=== PATIENT | female | born 1930 | race Asian ===

== ENCOUNTER 2019-07-15 14:07 | Inpatient (IN) | payer MEDICARE, MEDICAID ==
[2019-07-15] VITALS (7 sets, daily range): BP systolic 98–125; BP diastolic 53–81
[~2019-07-15] VITALS: Ht 165.1 cm; Wt 61.2 kg
[~2019-07-15 14:07] MED LIST: ARICEPT10 MG ORAL; COZAAR50 MG ORAL; FER-IRON15 MG/1 ML PO; LIPITOR20 MG ORAL; LOPRESSOR5 MG/5 ML PO; METFORMIN HCL500 M1 ORAL; NAMENDA10 MG ORAL; NIFEDIPINE ER60 M2 ORAL; NITROFURANTOIN100 MG PO; ONGLYZA5 MG PO; XARELTO10 MG ORAL
--- NOTE | 2019-07-15 14:10 | NUR ---
ED Nurse Note: Patient was brought in by 29 due to ALOC from home. nlood glucose reads critically high, pt appears to be lethargic, responds to light pain.
--- NOTE | 2019-07-15 14:12 | Emergency Room Report ---
History of Present Illness General Chief Complaint: Abnormal Labs Source: Patient, Medical Record Present Illness HPI Disclaimer: Please note that this report is being documented using [employer] technology. This can lead to erroneous entry secondary to incorrect interpretation by the dictating instrument. HPI: 88-year-old female with a history of CVA, hypertension, hyperlipidemia, diabetes presenting for evaluation of altered mental status and elevated blood sugar levels. According to EMS, they were called to the patient's home by retail planner who states she is been increasingly confused and somnolent over the past 24 hours. On their initial assessment her blood sugar reading was greater than 500. Patient cannot provide any history. No trauma reported. No travel reported. Education Dean told EMS there was no recent fever, cough, vomiting, diarrhea, shortness of breath, travel, contact with sick individuals otherwise. PMH: Diabetes, stroke, hypertension, hyperlipidemia, atrial fibrillation PSH: Unable to obtain from patient Allergies: None listed in medical chart Social Hx: Able to obtain from patient Allergies: Coded Allergies: NO KNOWN ALLERGIES (Unverified Allergy, Unknown, 12/09/14) COVID-19 Screening Contact w/high risk pt: No Recent Travel to affected area: No Experienced COVID-19 symptoms?: No Nursing Documentation-PMH Hx Cardiac Problems: Yes Hx Hypertension: Yes Hx Asthma: Yes Hx Diabetes: Yes Hx Cancer: No Hx Gastrointestinal Problems: No Hx Neurological Problems: Yes Hx Cerebrovascular Accident: Yes Hx Seizures: Yes Review of Systems All Other Systems: limited - Unable to obtain from patient due to clinical condition Physical Exam Vital Signs Date Time Temp Pulse Resp B/P (MAP) Pulse Ox O2 Delivery O2 Flow Rate FiO2 07/15/19 14:01 97.0 110 20 100/60 (73) 98 Room Air General: Somnolent, moaning, afebrile HEENT: NC/AT. EOMI. dry mucous membranes Cardiovascular: Tachycardic Resp: Normal work of breathing. No cough Abdomen: Abdomen is soft, nondistended. Nontender Skin: Intact. No abrasions, laceration or rash over the exposed skin MSK: Normal tone and bulk. Contracture in left hand Neuro: Somnolent, moaning comprehensively. GCS 9 Procedures Critical Care Time Critical Care Time Total critical care time: Approximately 45 minutes Due to a high probability of clinically significant, life threatening deterioration, the patient required the highest level of preparedness to intervene emergently and I personally spent this critical care time directly and personally managing the patient. This critical care time included obtaining a history, examining the patient, pulse oximetry, ordering and reviewing studies , ordering treatments, evaluating response to treatment and updating management plan as needed, frequent reassessment and discussion with other providers as well as arranging for ultimate disposition. This critical to care time was performed to assess and manage the high probability of life-threatening deterioration that could result in multiorgan failure. This critical care time is separate from the separately billable procedures and treating other patients. Medical Decision Making Diagnostic Impression: Primary Impression: Uncontrolled type 2 diabetes mellitus with hyperosmolar nonketotic hyperglycemia Additional Impressions: Encephalopathy acute ARF (acute renal failure) Hyperkalemia UTI (urinary tract infection) ER Course 88-year-old female brought in for altered mental status and elevated blood sugar readings. Differential includes was not limited to DKA, HHS, electrolyte abnormality, dehydration, sepsis, to name a few. Start a broad metabolic infectious work-up. DKA labs sent. Will start IV fluids and give insulin bolus. Patient will require admission. Laboratory Tests Test 07/15/19 14:28 07/15/19 14:50 White Blood Count 10.4 K/UL (4.8-10.8) Red Blood Count 4.41 M/UL (4.20-5.40) Hemoglobin 14.4 G/DL (12.0-16.0) Hematocrit 44.4 % (37.0-47.0) Mean Corpuscular Volume 101 FL (80-99) H Mean Corpuscular Hemoglobin 32.5 PG (27.0-31.0) H Mean Corpuscular Hemoglobin Concent 32.3 G/DL (32.0-36.0) Red Cell Distribution Width 12.8 % (11.6-14.8) Platelet Count 173 K/UL (150-450) Mean Platelet Volume 8.5 FL (6.5-10.1) Neutrophils (%) (Auto) 83.1 % (45.0-75.0) H Lymphocytes (%) (Auto) 11.9 % (20.0-45.0) L Monocytes (%) (Auto) 4.1 % (1.0-10.0) Eosinophils (%) (Auto) 0.3 % (0.0-3.0) Basophils (%) (Auto) 0.6 % (0.0-2.0) Sodium Level 140 MMOL/L (136-145) Potassium Level 7.0 MMOL/L (3.5-5.1) *H Chloride Level 105 MMOL/L (98-107) Carbon Dioxide Level 23 MMOL/L (21-32) Anion Gap 12 mmol/L (5-15) Blood Urea Nitrogen 95 mg/dL (7-18) H Creatinine 3.5 MG/DL (0.55-1.30) H Estimated Glomerular Filtration Rate 12.4 mL/min (>60) Glucose Level > 1000 MG/DL (74-106) *H Calcium Level 10.5 MG/DL (8.5-10.1) H Magnesium Level 3.2 MG/DL (1.8-2.4) H Total Bilirubin 0.3 MG/DL (0.2-1.0) Aspartate Amino Transferase (AST) 10 U/L (15-37) L Alanine Aminotransferase (ALT) 13 U/L (12-78) Alkaline Phosphatase 76 U/L (46-116) Troponin I 0.020 ng/mL (0.000-0.056) Total Protein 8.5 G/DL (6.4-8.2) H Albumin 3.8 G/DL (3.4-5.0) Globulin 4.7 g/dL Albumin/Globulin Ratio 0.8 (1.0-2.7) L Serum Alcohol < 3 mg/dL Acetone Level Negative (NEGATIVE) Arterial Blood pH 7.297 (7.350-7.450) Arterial Blood Partial Pressure CO2 39.5 mmHg (35.0-45.0) Arterial Blood Partial Pressure O2 77.9 mmHg (75.0-100.0) Arterial Blood HCO3 18.9 mmol/L (22.0-26.0) L Arterial Blood Oxygen Saturation 93.9 % (95-100) L Arterial Blood Base Excess -7.1 (-2-2) L Jh Test Positive EKG Diagnostic Results EKG Time: 14:14 Rate: normal Other Impression Hyperacute T waves concerning for hyperkalemia and widened QRS. Consistent with electrolyte abnormalities. Cannot rule out underlying infarct Rhythm Strip Diag. Results Rhythm Strip Time: 14:14 Rate: 80s Reevaluation Time: 15:30 Last Vital Signs Date Time Temp Pulse Resp B/P (MAP) Pulse Ox O2 Delivery O2 Flow Rate FiO2 07/15/19 14:01 97.0 110 20 100/60 (73) 98 Room Air Reevaluation Impression Labs show a critically high potassium consistent with the patient's EKG. Giving calcium gluconate at this time. Starting insulin drip for HHS. Glucose greater than 1000, ketones negative. Patient appears to be in acute kidney failure as well. IV fluids running. Will admit to the ICU. Admitting team notified. Will arrange to place a dialysis catheter in anticipation for dialysis given elevated potassium and kidney failure. Patient be treated for UTI as well. Disposition: ADMITTED INPATIENT Condition: Critical Yoshi Carrero MD Jul 15, 2019 14:12
[2019-07-15] MEDS ORDERED: Insulin Human Regular 100units/ml 3ml IV ONE ×2 (14:15→17:00)
--- NOTE | 2019-07-15 14:20 | NUR ---
ED Nurse Note: Patient was brought in due to ALOC from home. Blood glucose read critically high. Patient lethargic, and responds to pain. BG machine reads criticaly high. IV inserted, urine and all labs were done. Insulin gtt started. Permacath for dialysis ordered. Addendum: 07/15/19 at 1600 by [email or web address] ED Nurse Note: Patient was brought in due to ALOC from home. Blood glucose read critically high. Patient lethargic, and responds to pain. BG machine reads criticaly high.
--- NOTE | 2019-07-15 14:30 | NUR ---
ED Nurse Note: All labs sent
[2019-07-15 14:45] LABS: BASOPHILS % (AUTO) 0.6 % (0.0-2.0); EOSINOPHILS % (AUTO) 0.3 % (0.0-3.0); HEMATOCRIT 44.4 % (37.0-47.0); HEMOGLOBIN 14.4 G/DL (12.0-16.0); LYMPHOCYTES % (AUTO) 11.9 % (20.0-45.0); MEAN CORPUSCULAR VOLUME 101 FL (80-99); MONOCYTES % (AUTO) 4.1 % (1.0-10.0); NEUTROPHILS % (AUTO) 83.1 % (45.0-75.0); PLATELET COUNT 173 K/UL (150-450); RED BLOOD COUNT 4.41 M/UL (4.20-5.40); RED CELL DISTRIBUTION WIDTH 12.8 % (11.6-14.8); WHITE BLOOD COUNT 10.4 K/UL (4.8-10.8)
[2019-07-15 15:05] LABS: ALANINE AMINOTRANSFERASE 13 U/L (12-78); ALBUMIN 3.8 G/DL (3.4-5.0); ALBUMIN/GLOBULIN RATIO 0.8 (1.0-2.7); ALKALINE PHOSPHATASE 76 U/L (46-116); ANION GAP 12 mmol/L (5-15); ASPARTATE AMINO TRANSFERASE 10 U/L (15-37); BILIRUBIN,TOTAL 0.3 MG/DL (0.2-1.0); BLOOD UREA NITROGEN 95 mg/dL (7-18); CALCIUM 10.5 MG/DL (8.5-10.1); CARBON DIOXIDE 23 MMOL/L (21-32); CHLORIDE 105 MMOL/L (98-107); CREATININE 3.5 MG/DL (0.55-1.30); SODIUM 140 MMOL/L (136-145)
[2019-07-15] MEDS ORDERED: Insulin Reg 100 units Premix 100 ML IV SCH (15:15)
--- NOTE | 2019-07-15 15:28 | NUR ---
ED Nurse Note: IV inserted, urine collected and sent. Insulin gtt started. Permacath for dialysis ordered.
[2019-07-15] MEDS ORDERED: Calcium Gluconate 1gm/10ml vial IVP ONE (15:30)
[2019-07-15 16:01] LABS: APPEARANCE,URINE CLEAR; BILIRUBIN, URINE NEGATIVE (NEGATIVE); COLOR,URINE PALE YELLOW; GLUCOSE, URINE (UA) 4+ (NEGATIVE); KETONES,URINE NEGATIVE (NEGATIVE); LEUKOCYTE ESTERASE ,URINE 1+ (NEGATIVE); NITRITE,URINE POSITIVE (NEGATIVE); PH,URINE 5 (4.5-8.0); PROTEIN,URINE NEGATIVE (NEGATIVE); UROBILINOGEN,URINE NORMAL MG/DL (0.0-1.0)
--- NOTE | 2019-07-15 16:05 | Consultation ---
History of Present Illness General Chief Complaint: Abnormal Labs Present Illness HPI 88 year old woman with history of afib on DOAC, CVA, dementia, hypertension, hyperlipidemia, diabetes presenting for evaluation of acute encephalopathy and elevated blood sugar levels. According to EMS, they were called to the patient' s home by loan processor who states she is been increasingly confused and somnolent over the past 24 hours. On their initial assessment her blood sugar reading was greater than 500. Patient cannot provide any history. No trauma reported. No travel reported. Tennis Ball Cover Cementer told EMS there was no recent fever, cough, vomiting, diarrhea, shortness of breath, travel, contact with sick individuals otherwise. Information obtained from medical record as patient is unable to provide any information due to encephalopathy. In ED she was found to have glucose >1000, TREVOR, acidemia, hyperkalemia if 7.0 with peaked Twaves, started on insulin drip and given calcium gluconate and referred for ICU admission. Allergies: Coded Allergies: NO KNOWN ALLERGIES (Unverified Allergy, Unknown, 12/09/14) Medication History Scheduled Apixaban (Eliquis), 2.5 MG PO BID, (Reported) Atorvastatin Calcium* (Lipitor*), 20 MG ORAL BEDTIME, (Reported) Cholecalciferol (Vitamin D3) (Vitamin D3), 5,000 UNIT MC DAILY, (Reported) Donepezil Hcl* (Aricept*), 10 MG ORAL DAILY, (Reported) Ferrous Sulfate ([place]-Iron), 325 MG PO BID, (Reported) Furosemide* (Lasix*), 20 MG ORAL DAILY, (Reported) Icosapent Ethyl (Vascepa), 1 GM PO BID, (Reported) Losartan Potassium* (Cozaar*), 50 MG ORAL DAILY Memantine HCl/Donepezil HCl (Namzaric 28 mg-10 mg Capsule), 1 EACH PO DAILY, ( Reported) Memantine Hcl* (Namenda*), 28 MG ORAL DAILY, (Reported) Metformin Hcl* (Metformin Hcl*), 500 MG ORAL TWICE A DAY, (Reported) Metoprolol Tartrate* (Lopressor*), 100 MG PO EVERY 8 HOURS, (Reported) Nifedipine* (Nifedipine Er*), 60 MG ORAL DAILY, (Reported) Nitrofurantoin Macrocrystal (Nitrofurantoin), 100 MG PO BID Raloxifene HCl (Raloxifene HCl), 60 MG PO DAILY, (Reported) Rivaroxaban (Xarelto*), 15 MG ORAL DAILY, (Reported) Miscellaneous Medications Saxagliptin Hcl (Onglyza), 5 MG PO, (Reported) Patient History Healthcare decision maker Resuscitation status Advanced Directive on File Physical Exam Last 24 Hour Vital Signs Date Time Temp Pulse Resp B/P (MAP) Pulse Ox O2 Delivery O2 Flow Rate FiO2 07/15/19 14:10 97.2 98 19 115/65 99 Room Air 07/15/19 14:01 97.0 110 20 100/60 (73) 98 Room Air Laboratory Tests Test 07/15/19 14:28 07/15/19 14:50 07/15/19 15:15 White Blood Count 10.4 K/UL (4.8-10.8) Red Blood Count 4.41 M/UL (4.20-5.40) Hemoglobin 14.4 G/DL (12.0-16.0) Hematocrit 44.4 % (37.0-47.0) Mean Corpuscular Volume 101 FL (80-99) H Mean Corpuscular Hemoglobin 32.5 PG (27.0-31.0) H Mean Corpuscular Hemoglobin Concent 32.3 G/DL (32.0-36.0) Red Cell Distribution Width 12.8 % (11.6-14.8) Platelet Count 173 K/UL (150-450) Mean Platelet Volume 8.5 FL (6.5-10.1) Neutrophils (%) (Auto) 83.1 % (45.0-75.0) H Lymphocytes (%) (Auto) 11.9 % (20.0-45.0) L Monocytes (%) (Auto) 4.1 % (1.0-10.0) Eosinophils (%) (Auto) 0.3 % (0.0-3.0) Basophils (%) (Auto) 0.6 % (0.0-2.0) Sodium Level 140 MMOL/L (136-145) Potassium Level 7.0 MMOL/L (3.5-5.1) *H Chloride Level 105 MMOL/L (98-107) Carbon Dioxide Level 23 MMOL/L (21-32) Anion Gap 12 mmol/L (5-15) Blood Urea Nitrogen 95 mg/dL (7-18) H Creatinine 3.5 MG/DL (0.55-1.30) H Estimat Glomerular Filtration Rate 12.4 mL/min (>60) Glucose Level > 1000 MG/DL (74-106) *H Calcium Level 10.5 MG/DL (8.5-10.1) H Magnesium Level 3.2 MG/DL (1.8-2.4) H Total Bilirubin 0.3 MG/DL (0.2-1.0) Aspartate Amino Transf (AST/SGOT) 10 U/L (15-37) L Alanine Aminotransferase (ALT/SGPT) 13 U/L (12-78) Alkaline Phosphatase 76 U/L (46-116) Troponin I 0.020 ng/mL (0.000-0.056) Total Protein 8.5 G/DL (6.4-8.2) H Albumin 3.8 G/DL (3.4-5.0) Globulin 4.7 g/dL Albumin/Globulin Ratio 0.8 (1.0-2.7) L Serum Alcohol < 3 mg/dL Acetone Level Negative (NEGATIVE) Arterial Blood pH 7.297 (7.350-7.450) Arterial Blood Partial Pressure CO2 39.5 mmHg (35.0-45.0) Arterial Blood Partial Pressure O2 77.9 mmHg (75.0-100.0) Arterial Blood HCO3 18.9 mmol/L (22.0-26.0) L Arterial Blood Oxygen Saturation 93.9 % (95-100) L Arterial Blood Base Excess -7.1 (-2-2) L Jh Test Positive Urine Color Pending Urine Appearance Pending Urine pH Pending Urine Specific [place] Pending Urine Protein Pending Urine Glucose (UA) Pending Urine Ketones Pending Urine Blood Pending Urine Nitrite Pending Urine Bilirubin Pending Urine Urobilinogen Pending Urine Leukocyte Esterase Pending Urine HCG, Qualitative Pending Urine Opiates Screen Pending Urine Barbiturates Screen Pending Phencyclidine (PCP) Screen Pending Urine Amphetamines Screen Pending Urine Benzodiazepines Screen Pending Urine Cocaine Screen Pending Urine Marijuana (THC) Screen Pending Height (Feet): 5 Height (Inches): 5.00 Weight (Pounds): 120 Medications Current Medications Medications (Trade) Dose Ordered Sig/Jaylen Route PRN Reason Start Time Stop Time Status Last Admin Dose Admin Insulin Human (Reg)/Sodium Chloride 100 ml @ 6 mls/hr Q24H IV 07/15/19 15:15 07/16/19 07:54 07/15/19 15:28 Sodium Chloride 1,000 ml @ 999 mls/hr Q1H1M ONCE IV 07/15/19 15:45 07/15/19 16:45 07/15/19 15:57 Objective Narrative General Appearance: lethargic, confused Neck: supple, normal inspection Respiratory/Chest: lungs clear, normal breath sounds, no respiratory distress, no accessory muscle use Cardiovascular/Chest: normal rate, regular rhythm Abdomen: non tender, soft Extremities: non-tender, normal inspection, no calf tenderness Assessment/Plan Diagnosis Elrod I: #Acute renal failure - susept ATN- likely with baseline CKD? #Hyperkalemia- severe #severe Hyperglycemia #AMS #afib on DOAC #CVA, #dementia #hypertension # hyperlipidemia #diabetes - ICU admission - stat HD tonight- zero UF - Aggressive hydration- NS 1L now - continue with continous hydration after - monitor BMP, mag, phos, calcium q8hr - insulin drip - monitor BG - monitor blood gas Vikki Jackson M.D. Jul 15, 2019 16:05
--- NOTE | 2019-07-15 16:22 | NUR ---
ED Nurse Note: Pt in bed resting, no acute distress is noted. VSS as documented.
[2019-07-15] MEDS ORDERED: Insulin Reg 100 units Premix 100 ML IVPB SCH (16:45)
[2019-07-15] MEDS ORDERED: Insulin Human Regular 100units/ml 3ml IV PRN ×2 (16:45)
[2019-07-15] MEDS ORDERED: Insulin Rate Change 1 Each MISC PRN (16:45)
[2019-07-15] MEDS ORDERED: Albuterol/Ipratropium 3ml neb HHN PRN (16:45)
--- NOTE | 2019-07-15 17:02 | History and Physical ---
History of Present Illness General Date patient seen: Jul 15, 2019 Time patient seen: 16:45 Reason for Hospitalization: Abnormal Labs Present Illness HPI 88 year old woman with history of afib on DOAC, CVA, dementia, hypertension, hyperlipidemia, diabetes presenting for evaluation of acute encephalopathy and elevated blood sugar levels. According to EMS, they were called to the patient' s home by automobile engine assembler who states she is been increasingly confused and somnolent over the past 24 hours. On their initial assessment her blood sugar reading was greater than 500. Patient cannot provide any history. No trauma reported. No travel reported. Telephone Advice Nurse told EMS there was no recent fever, cough, vomiting, diarrhea, shortness of breath, travel, contact with sick individuals otherwise. Information obtained from medical record as patient is unable to provide any information due to encephalopathy. In ED she was found to have glucose >1000, TREVOR, acidemia, hyperkalemia if 7.0 with peaked Twaves, started on insulin drip and given calcium gluconate and referred for ICU admission. Family Hx: Unable to obtain due to encephalopathy Social Hx: Unable to obtain due to encephalopathy Allergies: Coded Allergies: NO KNOWN ALLERGIES (Unverified Allergy, Unknown, 12/09/14) COVID-19 Screening Contact w/high risk pt: No Recent Travel to affected area: No Experienced COVID-19 symptoms?: No Medication History Scheduled Atorvastatin Calcium* (Lipitor*), 20 MG ORAL BEDTIME, (Reported) Donepezil Hcl* (Aricept*), 10 MG ORAL DAILY, (Reported) Ferrous Sulfate ([place]-Iron), 325 MG PO BID, (Reported) Losartan Potassium* (Cozaar*), 50 MG ORAL DAILY Memantine Hcl* (Namenda*), 28 MG ORAL DAILY, (Reported) Metformin Hcl* (Metformin Hcl*), 500 MG ORAL TWICE A DAY, (Reported) Metoprolol Tartrate* (Lopressor*), 100 MG PO EVERY 8 HOURS, (Reported) Nifedipine* (Nifedipine Er*), 60 MG ORAL DAILY, (Reported) Nitrofurantoin Macrocrystal (Nitrofurantoin), 100 MG PO BID Rivaroxaban (Xarelto*), 15 MG ORAL DAILY, (Reported) Miscellaneous Medications Saxagliptin Hcl (Onglyza), 5 MG PO, (Reported) Patient History Healthcare decision maker Resuscitation status Advanced Directive on File Review of Systems ROS Narrative Unable to obtain due to encephalopathy Physical Exam General Appearance: lethargic, confused Neck: supple, normal inspection Respiratory/Chest: lungs clear, normal breath sounds, no respiratory distress, no accessory muscle use Cardiovascular/Chest: normal rate, regular rhythm Abdomen: non tender, soft Extremities: non-tender, normal inspection, no calf tenderness Last 24 Hour Vital Signs Date Time Temp Pulse Resp B/P (MAP) Pulse Ox O2 Delivery O2 Flow Rate FiO2 07/15/19 16:21 97.6 86 16 102/70 98 Room Air 07/15/19 14:10 97.2 98 19 115/65 99 Room Air 07/15/19 14:01 97.0 110 20 100/60 (73) 98 Room Air Laboratory Tests Test 07/15/19 14:28 07/15/19 14:50 07/15/19 15:15 White Blood Count 10.4 K/UL (4.8-10.8) Red Blood Count 4.41 M/UL (4.20-5.40) Hemoglobin 14.4 G/DL (12.0-16.0) Hematocrit 44.4 % (37.0-47.0) Mean Corpuscular Volume 101 FL (80-99) H Mean Corpuscular Hemoglobin 32.5 PG (27.0-31.0) H Mean Corpuscular Hemoglobin Concent 32.3 G/DL (32.0-36.0) Red Cell Distribution Width 12.8 % (11.6-14.8) Platelet Count 173 K/UL (150-450) Mean Platelet Volume 8.5 FL (6.5-10.1) Neutrophils (%) (Auto) 83.1 % (45.0-75.0) H Lymphocytes (%) (Auto) 11.9 % (20.0-45.0) L Monocytes (%) (Auto) 4.1 % (1.0-10.0) Eosinophils (%) (Auto) 0.3 % (0.0-3.0) Basophils (%) (Auto) 0.6 % (0.0-2.0) Sodium Level 140 MMOL/L (136-145) Potassium Level 7.0 MMOL/L (3.5-5.1) *H Chloride Level 105 MMOL/L (98-107) Carbon Dioxide Level 23 MMOL/L (21-32) Anion Gap 12 mmol/L (5-15) Blood Urea Nitrogen 95 mg/dL (7-18) H Creatinine 3.5 MG/DL (0.55-1.30) H Estimat Glomerular Filtration Rate 12.4 mL/min (>60) Glucose Level > 1000 MG/DL (74-106) *H Calcium Level 10.5 MG/DL (8.5-10.1) H Magnesium Level 3.2 MG/DL (1.8-2.4) H Total Bilirubin 0.3 MG/DL (0.2-1.0) Aspartate Amino Transf (AST/SGOT) 10 U/L (15-37) L Alanine Aminotransferase (ALT/SGPT) 13 U/L (12-78) Alkaline Phosphatase 76 U/L (46-116) Troponin I 0.020 ng/mL (0.000-0.056) Total Protein 8.5 G/DL (6.4-8.2) H Albumin 3.8 G/DL (3.4-5.0) Globulin 4.7 g/dL Albumin/Globulin Ratio 0.8 (1.0-2.7) L Serum Alcohol < 3 mg/dL Acetone Level Negative (NEGATIVE) Arterial Blood pH 7.297 (7.350-7.450) Arterial Blood Partial Pressure CO2 39.5 mmHg (35.0-45.0) Arterial Blood Partial Pressure O2 77.9 mmHg (75.0-100.0) Arterial Blood HCO3 18.9 mmol/L (22.0-26.0) L Arterial Blood Oxygen Saturation 93.9 % (95-100) L Arterial Blood Base Excess -7.1 (-2-2) L Jh Test Positive Urine Color Pale yellow Urine Appearance Clear Urine pH 5 (4.5-8.0) Urine Specific [place] 1.010 (1.005-1.035) Urine Protein Negative (NEGATIVE) Urine Glucose (UA) 4+ (NEGATIVE) H Urine Ketones Negative (NEGATIVE) Urine Blood 1+ (NEGATIVE) H Urine Nitrite Positive (NEGATIVE) H Urine Bilirubin Negative (NEGATIVE) Urine Urobilinogen Normal MG/DL (0.0-1.0) Urine Leukocyte Esterase 1+ (NEGATIVE) H Urine RBC 0-2 /HPF (0 - 2) Urine WBC 2-4 /HPF (0 - 2) Urine Squamous Epithelial Cells Occasional /LPF Urine Bacteria Many /HPF (NONE) H Urine HCG, Qualitative Negative (NEGATIVE) Urine Opiates Screen Negative (NEGATIVE) Urine Barbiturates Screen Negative (NEGATIVE) Phencyclidine (PCP) Screen Negative (NEGATIVE) Urine Amphetamines Screen Negative (NEGATIVE) Urine Benzodiazepines Screen Negative (NEGATIVE) Urine Cocaine Screen Negative (NEGATIVE) Urine Marijuana (THC) Screen Negative (NEGATIVE) Height (Feet): 5 Height (Inches): 5.00 Weight (Pounds): 120 Medications Current Medications Medications (Trade) Dose Ordered Sig/Jaylen Route PRN Reason Start Time Stop Time Status Last Admin Dose Admin Acetaminophen (Tylenol) 650 mg Q4H PRN ORAL Mild Pain (Pain Scale 1-3) 07/15/19 16:45 08/14/19 16:44 UNV Albuterol/ Ipratropium (Albuterol/ Ipratropium) 3 ml Q4HR PRN HHN Shortness of Breath 07/15/19 16:45 07/20/19 16:44 UNV Dextrose (Dextrose 50%) 25 ml Q30M PRN IV Hypoglycemia 07/15/19 16:45 10/13/19 16:44 UNV Dextrose (Dextrose 50%) 50 ml Q30M PRN IV Hypoglycemia 07/15/19 16:45 10/13/19 16:44 UNV Docusate Sodium (Colace) 100 mg EVERY 12 HOURS ORAL 07/15/19 21:00 08/14/19 20:59 UNV Heparin Sodium (Porcine) (Heparin 5000 units/ml) 5,000 units EVERY 8 HOURS SUBQ 07/15/19 22:00 08/29/19 21:59 UNV Insulin Human (Reg)/Sodium Chloride 100 ml @ 0 mls/hr Q24H IV 07/15/19 16:45 10/13/19 16:44 UNV Insulin Human (Reg)/Sodium Chloride 100 ml @ 6 mls/hr Q24H IV 07/15/19 15:15 07/16/19 07:54 07/15/19 15:28 Insulin Human Regular (NovoLIN R) 5 units PRN PRN IV BS 200-299 07/15/19 16:45 10/13/19 16:44 UNV Insulin Human Regular (NovoLIN R) 10 units PRN PRN IV BS=>300 07/15/19 16:45 10/13/19 16:44 UNV Miscellaneous Medication (Insulin Rate Change) 1 ea PRN PRN MISC for line flush 07/15/19 16:45 10/13/19 16:44 UNV Ondansetron HCl (Zofran) 4 mg Q6H PRN IVP Nausea & Vomiting 07/15/19 16:45 08/14/19 16:44 UNV Ondansetron HCl (Zofran) 4 mg Q6H PRN IVP Nausea & Vomiting 07/15/19 16:45 08/14/19 16:44 UNV Sodium Chloride 1,000 ml @ 999 mls/hr Q1H1M ONCE IV 07/15/19 15:45 07/15/19 16:45 07/15/19 15:57 Assessment/Plan Assessment/Plan: 88 year old woman with history of afib on DOAC, CVA, dementia, hypertension, hyperlipidemia, diabetes who presented to ED with: #Uncontrolled NIDDM, HONK #TREVOR #Severe hyperkalemia with EKG changes -admit to ICU, plan for emergent HD -Insulin drip protocol, monitor glucose levels, repeat BMP tonight, monitor K levels closely -Surgery consulted for HD catheter placement -Nephrology for initiation of HD -Endocrine consulted -hold metformin -hold losartan #Acute metabolic encephalopathy #Dementia #history of CVA -hold Aricept and Namenda -Treat underlying acute medical problems -Supportive care -Aspiration and fall precautions #Atrial fibrillation #HTN -hold metop, nifedipine for now -hold anticoagulation for now I spent 75 minutes on this patient's case, and 35 mins was dedicated to critical care Critical Care Services performed include: Telemetry Review Hemodynamic measurement interpretation Laboratory data review and interpretation Radiology image review and interpretation Interpretation of ABG's Discussion of patient's care with ED team, Nursing staff and/or consulting services Harley Peck MD Jul 15, 2019 17:02
--- NOTE | 2019-07-15 17:08 | NUR ---
ED Nurse Note: Permacath was inserted for dialysis by MD Zion on right groin. CDI.
--- NOTE | 2019-07-15 17:34 | NUR ---
ED Nurse Note: Accucheck q30min. BG machine still shows critically high. MDs aware and insulin gtt and NS are on going. Patient is more alert and easy to awake. Permacath site is intact and CDI. Continue to monitor.
--- NOTE | 2019-07-15 17:48 | Consultation ---
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 She was brought to [facility] for evaluation at which time was identified to have potassium of 7 peak T waves renal insufficiency severe dehydration and critically ill. Patient being admitted to intensive care unit for further care and management. Given her hyperkalemia and EKG changes emergency dialysis indicated recommended. Surgery was called by primary care physician and electromechanical assembler for evaluation and temporary hemodialysis access given patient's current condition and no history of dialysis with no prior access patient was seen emergently in the emergency department. I called the patient's daughter emergently and discussed condition patient's daughter states full code and wants all care provider for her mother. Consent was obtained. Patient is alert and awake somewhat responsive. No full conversation able to be had no history obtained from patient Allergies: Coded Allergies: NO KNOWN ALLERGIES (Unverified Allergy, Unknown, 12/09/14) COVID-19 Screening Contact w/high risk pt: No Recent Travel to affected area: No Experienced COVID-19 symptoms?: No Medication History Scheduled Atorvastatin Calcium* (Lipitor*), 20 MG ORAL BEDTIME, (Reported) Donepezil Hcl* (Aricept*), 10 MG ORAL DAILY, (Reported) Ferrous Sulfate (Holland-Iron), 325 MG PO BID, (Reported) Losartan Potassium* (Cozaar*), 50 MG ORAL DAILY Memantine Hcl* (Namenda*), 28 MG ORAL DAILY, (Reported) Metformin Hcl* (Metformin Hcl*), 500 MG ORAL TWICE A DAY, (Reported) Metoprolol Tartrate* (Lopressor*), 100 MG PO EVERY 8 HOURS, (Reported) Nifedipine* (Nifedipine Er*), 60 MG ORAL DAILY, (Reported) Nitrofurantoin Macrocrystal (Nitrofurantoin), 100 MG PO BID Rivaroxaban (Xarelto*), 15 MG ORAL DAILY, (Reported) Miscellaneous Medications Saxagliptin Hcl (Onglyza), 5 MG PO, (Reported) Patient History Limited by: medical condition History Provided By: Patient, Family Member, Medical Record, PMD Healthcare decision maker Resuscitation status Advanced Directive on File Past Medical/Surgical History Past Medical/Surgical History: (1) Altered level of consciousness (2) Acute delirium (3) UTI (urinary tract infection) (4) Sepsis (5) Elevated troponin (6) Elevated LFTs (7) Hyperkalemia (8) ARF (acute renal failure) (9) Encephalopathy acute (10) Uncontrolled type 2 diabetes mellitus with hyperosmolar nonketotic hyperglycemia Review of Systems Review of Symptoms General ROS: no weight loss or fever Psychological ROS: no depression or mood changes, no memory loss Ophthalmic ROS: no visual changes or eye irritation ENT ROS: no nasal congestion, hearing loss, dizziness Allergy and Immunology ROS: no allergic symptoms or urticaria Hematological and Lymphatic ROS: no swollen glands, unusual bleeding or bruising Endocrine ROS: no polyuria, polydipsia, weight changes, temperature intolerance Respiratory ROS: no cough, shortness of breath, or wheezing Cardiovascular ROS: no chest pain or dyspnea on exertion Gastrointestinal ROS: denies abdominal pain, bright red blood in stool. Musculoskeletal ROS: no myalgias or arthralgias Neurological ROS: no TIA or stroke symptoms Dermatological ROS: no new or changing skin lesions, rashes or pruritis Limited given patient's mental status at this time Physical Exam Physical Exam General appearance: alert, cooperative, no distress, appears stated age Head: Normocephalic, without obvious abnormality, atraumatic Eyes: conjunctivae/corneas clear. PERRL, EOM's intact. Fundi benign Throat: Lips, mucosa, and tongue normal. Teeth and gums normal Neck: supple, symmetrical, trachea midline, no adenopathy, thyroid: not enlarged, symmetric, no tenderness/mass/nodules, no carotid bruit and no JVD Lungs: clear to auscultation bilaterally Heart: regular rate and rhythm, S1, S2 normal, no murmur, click, rub or gallop Abdomen: soft, non-tender. Bowel sounds normal. No masses, no organomegaly Extremities: extremities normal, atraumatic, no cyanosis or edema Pulses: 2+ and symmetric Skin: Skin color, texture, turgor normal. No rashes or lesions Neurologic: Grossly normal Last 24 Hour Vital Signs Date Time Temp Pulse Resp B/P (MAP) Pulse Ox O2 Delivery O2 Flow Rate FiO2 07/15/19 16:21 97.6 86 16 102/70 98 Room Air 07/15/19 14:10 97.2 98 19 115/65 99 Room Air 07/15/19 14:01 97.0 110 20 100/60 (73) 98 Room Air Laboratory Tests Test 07/15/19 14:28 07/15/19 14:50 07/15/19 15:15 White Blood Count 10.4 K/UL (4.8-10.8) Red Blood Count 4.41 M/UL (4.20-5.40) Hemoglobin 14.4 G/DL (12.0-16.0) Hematocrit 44.4 % (37.0-47.0) Mean Corpuscular Volume 101 FL (80-99) H Mean Corpuscular Hemoglobin 32.5 PG (27.0-31.0) H Mean Corpuscular Hemoglobin Concent 32.3 G/DL (32.0-36.0) Red Cell Distribution Width 12.8 % (11.6-14.8) Platelet Count 173 K/UL (150-450) Mean Platelet Volume 8.5 FL (6.5-10.1) Neutrophils (%) (Auto) 83.1 % (45.0-75.0) H Lymphocytes (%) (Auto) 11.9 % (20.0-45.0) L Monocytes (%) (Auto) 4.1 % (1.0-10.0) Eosinophils (%) (Auto) 0.3 % (0.0-3.0) Basophils (%) (Auto) 0.6 % (0.0-2.0) Sodium Level 140 MMOL/L (136-145) Potassium Level 7.0 MMOL/L (3.5-5.1) *H Chloride Level 105 MMOL/L (98-107) Carbon Dioxide Level 23 MMOL/L (21-32) Anion Gap 12 mmol/L (5-15) Blood Urea Nitrogen 95 mg/dL (7-18) H Creatinine 3.5 MG/DL (0.55-1.30) H Estimat Glomerular Filtration Rate 12.4 mL/min (>60) Glucose Level > 1000 MG/DL (74-106) *H Calcium Level 10.5 MG/DL (8.5-10.1) H Phosphorus Level 5.9 MG/DL (2.5-4.9) H Magnesium Level 3.2 MG/DL (1.8-2.4) H Total Bilirubin 0.3 MG/DL (0.2-1.0) Aspartate Amino Transf (AST/SGOT) 10 U/L (15-37) L Alanine Aminotransferase (ALT/SGPT) 13 U/L (12-78) Alkaline Phosphatase 76 U/L (46-116) Troponin I 0.020 ng/mL (0.000-0.056) Total Protein 8.5 G/DL (6.4-8.2) H Albumin 3.8 G/DL (3.4-5.0) Globulin 4.7 g/dL Albumin/Globulin Ratio 0.8 (1.0-2.7) L Serum Alcohol < 3 mg/dL Acetone Level Negative (NEGATIVE) Arterial Blood pH 7.297 (7.350-7.450) Arterial Blood Partial Pressure CO2 39.5 mmHg (35.0-45.0) Arterial Blood Partial Pressure O2 77.9 mmHg (75.0-100.0) Arterial Blood HCO3 18.9 mmol/L (22.0-26.0) L Arterial Blood Oxygen Saturation 93.9 % (95-100) L Arterial Blood Base Excess -7.1 (-2-2) L Jh Test Positive Urine Color Pale yellow Urine Appearance Clear Urine pH 5 (4.5-8.0) Urine Specific [place] 1.010 (1.005-1.035) Urine Protein Negative (NEGATIVE) Urine Glucose (UA) 4+ (NEGATIVE) H Urine Ketones Negative (NEGATIVE) Urine Blood 1+ (NEGATIVE) H Urine Nitrite Positive (NEGATIVE) H Urine Bilirubin Negative (NEGATIVE) Urine Urobilinogen Normal MG/DL (0.0-1.0) Urine Leukocyte Esterase 1+ (NEGATIVE) H Urine RBC 0-2 /HPF (0 - 2) Urine WBC 2-4 /HPF (0 - 2) Urine Squamous Epithelial Cells Occasional /LPF Urine Bacteria Many /HPF (NONE) H Urine HCG, Qualitative Negative (NEGATIVE) Urine Opiates Screen Negative (NEGATIVE) Urine Barbiturates Screen Negative (NEGATIVE) Phencyclidine (PCP) Screen Negative (NEGATIVE) Urine Amphetamines Screen Negative (NEGATIVE) Urine Benzodiazepines Screen Negative (NEGATIVE) Urine Cocaine Screen Negative (NEGATIVE) Urine Marijuana (THC) Screen Negative (NEGATIVE) Height (Feet): 5 Height (Inches): 5.00 Weight (Pounds): 120 Medications Current Medications Medications (Trade) Dose Ordered Sig/Jaylen Route PRN Reason Start Time Stop Time Status Last Admin Dose Admin Acetaminophen (Tylenol) 650 mg Q4H PRN ORAL Mild Pain (Pain Scale 1-3) 07/15/19 16:45 08/14/19 16:44 Albuterol/ Ipratropium (Albuterol/ Ipratropium) 3 ml Q4H PRN HHN Shortness of Breath 07/15/19 16:45 07/20/19 16:44 Dextrose (Dextrose 50%) 25 ml Q30M PRN IV Hypoglycemia 07/15/19 16:45 10/13/19 16:44 Dextrose (Dextrose 50%) 50 ml Q30M PRN IV Hypoglycemia 07/15/19 16:45 10/13/19 16:44 Docusate Sodium (Colace) 100 mg EVERY 12 HOURS ORAL 07/15/19 21:00 08/14/19 20:59 UNV Heparin Sodium (Porcine) (Heparin 5000 units/ml) 5,000 units EVERY 8 HOURS SUBQ 07/15/19 22:00 08/29/19 21:59 UNV Insulin Human (Reg)/Sodium Chloride 100 ml @ 0 mls/hr Q24H IV 07/15/19 16:45 10/13/19 16:44 UNV Insulin Human (Reg)/Sodium Chloride 100 ml @ 6 mls/hr Q24H IV 07/15/19 15:15 07/16/19 07:54 07/15/19 15:28 Insulin Human Regular (NovoLIN R) 5 units PRN PRN IV BS 200-299 07/15/19 16:45 10/13/19 16:44 UNV Insulin Human Regular (NovoLIN R) 10 units PRN PRN IV BS=>300 07/15/19 16:45 10/13/19 16:44 UNV Miscellaneous Medication (Insulin Rate Change) 1 ea PRN PRN MISC for line flush 07/15/19 16:45 10/13/19 16:44 UNV Ondansetron HCl (Zofran) 4 mg Q6H PRN IVP Nausea & Vomiting 07/15/19 16:45 08/14/19 16:44 Sodium Chloride 1,000 ml @ 999 mls/hr Q1H1M ONCE IV 07/15/19 17:00 07/15/19 18:00 07/15/19 17:00 Sodium Chloride 1,000 ml @ 999 mls/hr Q1H1M ONCE IV 07/15/19 17:30 07/15/19 18:30 UNV Assessment/Plan Problem List: (1) Elevated troponin ICD Codes: R79.89 - Other specified abnormal findings of blood chemistry SNOMED: 291623722, 724687670, 309525118 (2) Elevated LFTs ICD Codes: R79.89 - Other specified abnormal findings of blood chemistry SNOMED: 039821007, 967105362, 682483258 (3) Hyperkalemia Assessment & Plan: Calcium Dextrose insulin as needed Urgent hemodialysis discussed with electromechanical assembler ICD Codes: E87.5 - Hyperkalemia SNOMED: 66413274, 142958912, 113172846 (4) ARF (acute renal failure) ICD Codes: N17.9 - Acute kidney failure, unspecified SNOMED: 26901837, 495919393, 436539613 (5) Encephalopathy acute ICD Codes: G93.40 - Encephalopathy acute SNOMED: 5258844 (6) Acute delirium ICD Codes: R41.0 - Disorientation, unspecified SNOMED: 8381333 (7) Sepsis Assessment & Plan: Hyperglycemia, hyperkalemia, renal insufficiency. EKG with peaked T waves abnormal Emergent dialysis indicated recommended Complete examination performed chart reviewed discussion had with patient's family regards to history discussion had with primary care physician electromechanical assembler Emergency hemodialysis catheter insertion temporary indicated recommended Please see procedure note We will follow with recommendations thank you for let me participate patient's care ICD Codes: A41.9 - Sepsis SNOMED: 65837522 (8) UTI (urinary tract infection) ICD Codes: N39.0 - Urinary tract infection, site not specified SNOMED: 07061260 (9) Altered level of consciousness ICD Codes: R40.4 - Transient alteration of awareness SNOMED: 3377348 (10) Uncontrolled type 2 diabetes mellitus with hyperosmolar nonketotic hyperglycemia ICD Codes: E11.00 - Type 2 diabetes mellitus with hyperosmolarity without nonketotic hyperglycemic-hyperosmolar coma ([facility]) SNOMED: 55566878, 982303935, 144489679 Gilberto Donovan Jul 15, 2019 17:48
--- NOTE | 2019-07-15 17:49 | Operative Note - PDOC ---
Operative Note Operative Note Date of Operation/Procedure: Jul 15, 2019 Pre-op Diagnosis: Sepsis, hyperkalemia, abnormal EKG changes, renal insufficiency Procedure: Right femoral temporary hemodialysis catheter insertion Post-op Diagnosis: same as pre-op Surgeon: Gilberto Donovan MD Anesthesia: local Specimen: none Complications: none Condition: stable Estimated Blood Loss: minimal Drains: none Implant(s) used?: No Indications for Procedure Please see consult note 88-year-old female present emergency department with weakness fatigue somnolence identified to have hyperkalemia with peaked T waves abnormal EKG renal insufficiency requiring emergency dialysis discussed with patient's daughter who consented for patient and after all risk medicine alternatives discussed Description of Procedure Patient was made comfortable the emergency department in the supine position at bedside. The right groin is prepped draped in the same surgical fashion. Local anesthetic 1% lidocaine was infiltrated. Anatomic landmarks identified. Femoral vein was cannulated on first stick using finder needle. Guidewire placed over needle needle removed. Small skin incision made around the guidewire and dilators used dilate the tract. After appropriate ablation the hemodialysis catheter was inserted over the guidewire and guidewire removed and discarded. Both ports aspirated and flushed without complication. Line sutured in place and dressings applied. Emergent dialysis in route [facility]. Will monitor closely. Thank you Gilberto Donovan Jul 15, 2019 17:49
--- NOTE | 2019-07-15 19:30 | NUR ---
ED Nurse Note: Recieved report from am nurse [place] resume care, pt is in bed eyes closed, opens to painful stimuli, no verbal response, eyes open and pt does follow simple commands and appears to understand, is on cardiac monitoring, has patent IV line in right hand with fluids and Insulin infusing at 6ml per hour, pt to be admitted to hospital, willr esume care as ordeered and monitor per protocol and preape for admission, will continue to closely monitor. pt also noted with permacath to right groin, intact and patent, no bleeding or swelling noted at site.
[2019-07-15] MEDS: Docusate 100mg cap ORAL SCH (21:00)
--- NOTE | 2019-07-15 21:00 | NUR ---
ED Nurse Note: Pt continues to rest quietly in bed, on cardiac monitoring, blood sugar level re-taken and reported to MD, no changed, continues at 6ml per hour, site intact and patent, tolerating well, v/s stable, tp is clean and dry, pt swabs collected and belongings completed, will continue to monitor while waiting for room for admit.
--- NOTE | 2019-07-15 21:22 | Consultation ---
History of Present Illness General Date patient seen: Jul 15, 2019 Chief Complaint: Abnormal Labs Reason for Consultation: ams Present Illness HPI 88 year old woman with history of afib on DOAC, CVA, dementia, hypertension, hyperlipidemia, diabetes presenting for evaluation of acute encephalopathy and elevated blood sugar levels. According to EMS, they were called to the patient' s home by primary care nurse who states she is been increasingly confused and somnolent over the past 24 hours. On their initial assessment her blood sugar reading was greater than 500. Patient cannot provide any history. No trauma reported. No travel reported. Collections Manager told EMS there was no recent fever, cough, vomiting, diarrhea, shortness of breath, travel, contact with sick individuals otherwise. Information obtained from medical record as patient is unable to provide any information due to encephalopathy. In ED she was found to have glucose >1000, TREVOR, acidemia, hyperkalemia if 7.0 with peaked Twaves, started on insulin drip and given calcium gluconate and referred for ICU admission. Allergies: Coded Allergies: NO KNOWN ALLERGIES (Unverified Allergy, Unknown, 12/09/14) Medication History Scheduled Apixaban (Eliquis), 2.5 MG PO BID, (Reported) Atorvastatin Calcium* (Lipitor*), 20 MG ORAL BEDTIME, (Reported) Cholecalciferol (Vitamin D3) (Vitamin D3), 5,000 UNIT MC DAILY, (Reported) Donepezil Hcl* (Aricept*), 10 MG ORAL DAILY, (Reported) Ferrous Sulfate ([place]-Iron), 325 MG PO BID, (Reported) Furosemide* (Lasix*), 20 MG ORAL DAILY, (Reported) Icosapent Ethyl (Vascepa), 1 GM PO BID, (Reported) Losartan Potassium* (Cozaar*), 50 MG ORAL DAILY Memantine HCl/Donepezil HCl (Namzaric 28 mg-10 mg Capsule), 1 EACH PO DAILY, ( Reported) Memantine Hcl* (Namenda*), 28 MG ORAL DAILY, (Reported) Metformin Hcl* (Metformin Hcl*), 500 MG ORAL TWICE A DAY, (Reported) Metoprolol Tartrate* (Lopressor*), 100 MG PO EVERY 8 HOURS, (Reported) Nifedipine* (Nifedipine Er*), 60 MG ORAL DAILY, (Reported) Nitrofurantoin Macrocrystal (Nitrofurantoin), 100 MG PO BID Raloxifene HCl (Raloxifene HCl), 60 MG PO DAILY, (Reported) Rivaroxaban (Xarelto*), 15 MG ORAL DAILY, (Reported) Miscellaneous Medications Saxagliptin Hcl (Onglyza), 5 MG PO, (Reported) Patient History Healthcare decision maker Resuscitation status Advanced Directive on File Review of Systems ROS Narrative unable cc 35 min Physical Exam General Appearance: lethargic, confused Physical Exam Narrative right hemiparesis, spastic moans to pain cc 35 min Last 24 Hour Vital Signs Date Time Temp Pulse Resp B/P (MAP) Pulse Ox O2 Delivery O2 Flow Rate FiO2 07/15/19 19:30 98.1 83 16 125/81 98 Room Air 07/15/19 16:21 97.6 86 16 102/70 98 Room Air 07/15/19 14:10 97.2 98 19 115/65 99 Room Air 07/15/19 14:01 97.0 110 20 100/60 (73) 98 Room Air Laboratory Tests Test 07/15/19 14:28 07/15/19 14:50 07/15/19 15:15 White Blood Count 10.4 K/UL (4.8-10.8) Red Blood Count 4.41 M/UL (4.20-5.40) Hemoglobin 14.4 G/DL (12.0-16.0) Hematocrit 44.4 % (37.0-47.0) Mean Corpuscular Volume 101 FL (80-99) H Mean Corpuscular Hemoglobin 32.5 PG (27.0-31.0) H Mean Corpuscular Hemoglobin Concent 32.3 G/DL (32.0-36.0) Red Cell Distribution Width 12.8 % (11.6-14.8) Platelet Count 173 K/UL (150-450) Mean Platelet Volume 8.5 FL (6.5-10.1) Neutrophils (%) (Auto) 83.1 % (45.0-75.0) H Lymphocytes (%) (Auto) 11.9 % (20.0-45.0) L Monocytes (%) (Auto) 4.1 % (1.0-10.0) Eosinophils (%) (Auto) 0.3 % (0.0-3.0) Basophils (%) (Auto) 0.6 % (0.0-2.0) Sodium Level 140 MMOL/L (136-145) Potassium Level 7.0 MMOL/L (3.5-5.1) *H Chloride Level 105 MMOL/L (98-107) Carbon Dioxide Level 23 MMOL/L (21-32) Anion Gap 12 mmol/L (5-15) Blood Urea Nitrogen 95 mg/dL (7-18) H Creatinine 3.5 MG/DL (0.55-1.30) H Estimat Glomerular Filtration Rate 12.4 mL/min (>60) Glucose Level > 1000 MG/DL (74-106) *H Calcium Level 10.5 MG/DL (8.5-10.1) H Phosphorus Level 5.9 MG/DL (2.5-4.9) H Magnesium Level 3.2 MG/DL (1.8-2.4) H Total Bilirubin 0.3 MG/DL (0.2-1.0) Aspartate Amino Transf (AST/SGOT) 10 U/L (15-37) L Alanine Aminotransferase (ALT/SGPT) 13 U/L (12-78) Alkaline Phosphatase 76 U/L (46-116) Troponin I 0.020 ng/mL (0.000-0.056) Total Protein 8.5 G/DL (6.4-8.2) H Albumin 3.8 G/DL (3.4-5.0) Globulin 4.7 g/dL Albumin/Globulin Ratio 0.8 (1.0-2.7) L Serum Alcohol < 3 mg/dL Acetone Level Negative (NEGATIVE) Arterial Blood pH 7.297 (7.350-7.450) Arterial Blood Partial Pressure CO2 39.5 mmHg (35.0-45.0) Arterial Blood Partial Pressure O2 77.9 mmHg (75.0-100.0) Arterial Blood HCO3 18.9 mmol/L (22.0-26.0) L Arterial Blood Oxygen Saturation 93.9 % (95-100) L Arterial Blood Base Excess -7.1 (-2-2) L Jh Test Positive Urine Color Pale yellow Urine Appearance Clear Urine pH 5 (4.5-8.0) Urine Specific [place] 1.010 (1.005-1.035) Urine Protein Negative (NEGATIVE) Urine Glucose (UA) 4+ (NEGATIVE) H Urine Ketones Negative (NEGATIVE) Urine Blood 1+ (NEGATIVE) H Urine Nitrite Positive (NEGATIVE) H Urine Bilirubin Negative (NEGATIVE) Urine Urobilinogen Normal MG/DL (0.0-1.0) Urine Leukocyte Esterase 1+ (NEGATIVE) H Urine RBC 0-2 /HPF (0 - 2) Urine WBC 2-4 /HPF (0 - 2) Urine Squamous Epithelial Cells Occasional /LPF Urine Bacteria Many /HPF (NONE) H Urine HCG, Qualitative Negative (NEGATIVE) Urine Opiates Screen Negative (NEGATIVE) Urine Barbiturates Screen Negative (NEGATIVE) Phencyclidine (PCP) Screen Negative (NEGATIVE) Urine Amphetamines Screen Negative (NEGATIVE) Urine Benzodiazepines Screen Negative (NEGATIVE) Urine Cocaine Screen Negative (NEGATIVE) Urine Marijuana (THC) Screen Negative (NEGATIVE) Height (Feet): 5 Height (Inches): 5.00 Weight (Pounds): 120 Medications Current Medications Medications (Trade) Dose Ordered Sig/Jaylen Route PRN Reason Start Time Stop Time Status Last Admin Dose Admin Acetaminophen (Tylenol) 650 mg Q4H PRN ORAL Mild Pain (Pain Scale 1-3) 07/15/19 16:45 08/14/19 16:44 Albuterol/ Ipratropium (Albuterol/ Ipratropium) 3 ml Q4H PRN HHN Shortness of Breath 07/15/19 16:45 07/20/19 16:44 Ceftriaxone Sodium 1 gm/ Sodium Chloride 55 ml @ 110 mls/hr ONCE ONCE IVPB 07/15/19 20:15 07/15/19 20:44 UNV Dextrose (Dextrose 50%) 25 ml Q30M PRN IV Hypoglycemia 07/15/19 16:45 10/13/19 16:44 Dextrose (Dextrose 50%) 50 ml Q30M PRN IV Hypoglycemia 07/15/19 16:45 10/13/19 16:44 Docusate Sodium (Colace) 100 mg EVERY 12 HOURS ORAL 07/15/19 21:00 08/14/19 20:59 UNV Heparin Sodium (Porcine) (Heparin 5000 units/ml) 5,000 units EVERY 8 HOURS SUBQ 07/15/19 22:00 08/29/19 21:59 UNV Insulin Human (Reg)/Sodium Chloride 100 ml @ 0 mls/hr Q24H IV 07/15/19 16:45 10/13/19 16:44 UNV Insulin Human (Reg)/Sodium Chloride 100 ml @ 6 mls/hr Q24H IV 07/15/19 15:15 07/16/19 07:54 07/15/19 15:28 Insulin Human Regular (NovoLIN R) 5 units PRN PRN IV BS 200-299 07/15/19 16:45 10/13/19 16:44 UNV Insulin Human Regular (NovoLIN R) 10 units PRN PRN IV BS=>300 07/15/19 16:45 10/13/19 16:44 UNV Miscellaneous Medication (Insulin Rate Change) 1 ea PRN PRN MISC for line flush 07/15/19 16:45 10/13/19 16:44 UNV Ondansetron HCl (Zofran) 4 mg Q6H PRN IVP Nausea & Vomiting 07/15/19 16:45 08/14/19 16:44 Sodium Chloride 1,000 ml @ 999 mls/hr Q1H1M ONCE IV 07/15/19 17:30 07/15/19 18:30 UNV Assessment/Plan Problem List: (1) Elevated troponin ICD Codes: R79.89 - Other specified abnormal findings of blood chemistry SNOMED: 079278616, 581050316, 012908661 (2) Elevated LFTs ICD Codes: R79.89 - Other specified abnormal findings of blood chemistry SNOMED: 979295192, 437374572, 268913458 (3) Acute delirium ICD Codes: R41.0 - Disorientation, unspecified SNOMED: 1416033 (4) Sepsis ICD Codes: A41.9 - Sepsis SNOMED: 87544082 (5) Altered level of consciousness ICD Codes: R40.4 - Transient alteration of awareness SNOMED: 2561056 (6) Uncontrolled type 2 diabetes mellitus with hyperosmolar nonketotic hyperglycemia ICD Codes: E11.00 - Type 2 diabetes mellitus with hyperosmolarity without nonketotic hyperglycemic-hyperosmolar coma ([facility]) SNOMED: 90422722, 186271571, 991612287 (7) ARF (acute renal failure) ICD Codes: N17.9 - Acute kidney failure, unspecified SNOMED: 02155322, 225585802, 746241078 (8) Encephalopathy acute ICD Codes: G93.40 - Encephalopathy acute SNOMED: 7679518 (9) UTI (urinary tract infection) ICD Codes: N39.0 - Urinary tract infection, site not specified SNOMED: 90056849 (10) Hyperkalemia ICD Codes: E87.5 - Hyperkalemia SNOMED: 53987229, 183013477, 086521178 Assessment/Plan: acute encephalopathy hx of advanced dementia Right spastic hemiparesis Sepsis Cultures pending atb broad spectrum hold namenda hold sedating Christopher Alvarez MD Jul 15, 2019 21:22
[2019-07-15] MEDS: Heparin 5000 units/ml inj SUBQ SCH (22:00)
[2019-07-15] MEDS ORDERED: cefTRIAXone 1 GM in NS 55 ML IVPB ONE (22:00)
--- NOTE | 2019-07-15 22:35 | NUR ---
ED Nurse Note: Pt has room for admission, report called to floor nurse, pt family aware and now leaving hospital, gave pt med rec, will input info, pt remains with insulin drip at 6ml per hour, pt tolerating well, pt noted incontinent of urine and had stool, normal bowel movement, soft and formed, pt cleaned and linen changed, no bed sores or open sounds noted, pt being taken to floor bed via gurney with ER-Tech and RN under ACLS protocols with monitoring.
--- NOTE | 2019-07-15 23:42 | NUR ---
NURSE NOTES: le; CALLED DR. PDAILLA REGARDING VERIFY INSULIN DRIP ORDER THAT EXCHANGER WAS AWARE.
--- NOTE | 2019-07-15 23:45 | NUR ---
NURSE NOTES: LE: CALLED BACK DR. BLACK THAT RECEIVED NEW ORDER AND WILL FOLLOW UP.
--- NOTE | 2019-07-15 23:51 | NUR ---
NURSE NOTES: Called [facility] at this time for urgent dialysis to be done tonight. stated she will page the hr shared services consultant tech at this time.
[2019-07-16] VITALS (27 sets, daily range): BP systolic 91–149; BP diastolic 40–101
--- NOTE | 2019-07-16 | NUR ---
NURSE NOTES: LE: CALLED PT'S DAUGHTER WHO IS [employer] THAT GOT DIALYSIS CONSENT, VERIFIED 2 NURSES, INFORMED DAUGHTER ABOUT PT'S SITUATION AND HOSPITAL ICU PHONE NUMBER. DAUGHTER WANTED TO GIVE MASK FOR THE PATIENT AND DAUGHTER WANTED PUT ON RESTRAINTS FOR THE PT'S SAFETY NEEDED BECAUSE PATIENT REMOVED LINE SEVERAL TIMES WHEN PREVIOUS HOSPITALIZATION AND HISTORY DEMENTIA.
[2019-07-16] MEDS ORDERED: cefTRIAXone 1 GM in NS 55 ML IVPB ONE (00:15)
[2019-07-16] MEDS ORDERED: Insulin Reg 100 units Premix 100 ML IVPB SCH (00:15)
[2019-07-16 00:41] LABS: ANION GAP 14 mmol/L (5-15); BLOOD UREA NITROGEN 80 mg/dL (7-18); CALCIUM 10.5 MG/DL (8.5-10.1); CARBON DIOXIDE 21 MMOL/L (21-32); CHLORIDE 122 MMOL/L (98-107); CREATININE 2.6 MG/DL (0.55-1.30); POTASSIUM 3.7 MMOL/L (3.5-5.1); SODIUM 157 MMOL/L (136-145)
--- NOTE | 2019-07-16 00:50 | NUR ---
NURSE NOTES: CALLED DR. PADILLA REGARDING BMP RESULT THAT EXCHANGER WAS AWARE.
--- NOTE | 2019-07-16 01:05 | NUR ---
NURSE NOTES: CALLED BACK FROM DR. BLACK THAT MD WAS AWARE ABOUT BMP RESULT AND CURRENT BS 95MG/DL, MD SAID, WILL BE ORDER.
--- NOTE | 2019-07-16 01:07 | NUR ---
NURSE NOTES: LE: DISCONTINUED INSULIN DRIP ORDER.
[2019-07-16] MEDS ORDERED: Levemir Flexpen SUBQ SCH ×2 (02:00→13:45)
--- NOTE | 2019-07-16 03:14 | NUR ---
NURSE NOTES: PATIENT ASLEEP STATUS, VSS, ONGOING IV FLUID 1/2NS AT 75ML/HR VIA PPL, WILL CONTINUE TO MONITOR.
--- NOTE | 2019-07-16 04:45 | NUR ---
NURSE NOTES: MORNING CARE WAS DONE.
[2019-07-16] MEDS: Heparin 5000 units/ml inj SUBQ SCH ×2 (05:23→15:36)
[2019-07-16] MEDS: NovoLOG Insulin Flexpen SUBQ SCH ×6 (06:12→20:29)
[2019-07-16] MEDS ORDERED: RALOXIFENE HCL60 MG PO (06:27)
[2019-07-16] MEDS ORDERED: NAMZARIC 28 MG1 EACH PO (06:27)
[2019-07-16] MEDS ORDERED: ELIQUIS2.5 MG PO (06:27)
[2019-07-16] MEDS ORDERED: FUROSEMIDE20 M1 ORAL (06:27)
[2019-07-16] MEDS ORDERED: VASCEPA1 GM PO (06:27)
[2019-07-16] MEDS ORDERED: VITAMIN D32400 UNIT/ MC (06:27)
--- NOTE | 2019-07-16 06:42 | NUR ---
NURSE NOTES: PATIENT ASLEEP STATUS, NO PAIN OR DISTRESS NOTED AT THIS SHIFT.
[2019-07-16 06:49] LABS: BASOPHILS % (AUTO) 0.8 % (0.0-2.0); EOSINOPHILS % (AUTO) 0.9 % (0.0-3.0); HEMOGLOBIN 13.7 G/DL (12.0-16.0); LYMPHOCYTES % (AUTO) 21.1 % (20.0-45.0); MEAN CORPUSCULAR VOLUME 95 FL (80-99); MONOCYTES % (AUTO) 8.9 % (1.0-10.0); NEUTROPHILS % (AUTO) 68.2 % (45.0-75.0); PLATELET COUNT 178 K/UL (150-450); RED BLOOD COUNT 4.13 M/UL (4.20-5.40); RED CELL DISTRIBUTION WIDTH 11.5 % (11.6-14.8)
--- NOTE | 2019-07-16 07:10 | NUR ---
HAND-OFF: Report given to KAREN CALDERÓN.
--- NOTE | 2019-07-16 07:11 | NUR ---
NURSE NOTES: Report received from Mehran Alvarado RN. Pt is sleeping in bed. Able to wake up and respond to name. Syriac speaking. Impulsive at times and on bilateral soft wrist restraints. A-fib on traffic monitor specialist. On RA. O2 sat 100%. Pure wick in place. Right groin perma cath for HD noted. Dressing dry and intact. IV to right hand G22 and left hand G20 patent and asymptomatic. 1/2NS is running at 75cc/hr. Bed in lowest position. Side rails up x3. Will resume plan of care.
[2019-07-16 07:24] LABS: ANION GAP 17 mmol/L (5-15); BLOOD UREA NITROGEN 79 mg/dL (7-18); CALCIUM 10.6 MG/DL (8.5-10.1); CARBON DIOXIDE 22 MMOL/L (21-32); CHLORIDE 122 MMOL/L (98-107); CREATININE 2.5 MG/DL (0.55-1.30); POTASSIUM 4.1 MMOL/L (3.5-5.1)
--- NOTE | 2019-07-16 08:09 | NUR ---
NURSE NOTES: Called [facility] to follow up for HD ordered for 07-15-2019 and not done. Awaiting call back from HD nurse.
[2019-07-16 08:13] LABS: SODIUM 161 MMOL/L (136-145)
--- NOTE | 2019-07-16 08:41 | NUR ---
NURSE NOTES: Spoke with daughter on the phone. Called and notified Dr Jackson regarding elevated Na and other abnormal labs. Also notified him that HD from yesterday was not done. Order to cancel HD received and will call [facility] to do it.
[2019-07-16] MEDS: Docusate 100mg cap ORAL SCH ×2 (08:55→20:26)
--- NOTE | 2019-07-16 10:27 | Nephrology Progress Note ---
Assessment/Plan Plan #Acute renal failure - susept ATN- likely with baseline CKD? #Hyperkalemia- resolved #hypernatremia #severe Hyperglycemia- HHS #AMS #afib on DOAC #CVA, #dementia #hypertension # hyperlipidemia #diabetes - switch to 1/2NS at 150cc/hr - D5W 500cc x1 - monitor BMP, mag, phos, calcium - repeat BMP today - monitor BG - transition to sq insulin - monitor blood gas - continue cefepime - continue statin Subjective ROS Limited/Unobtainable: Yes Subjective Breathing stable on room air this morning Sodium uptrending potassium ok BUN/cr improving Objective Objective Last 24 Hour Vital Signs Date Time Temp Pulse Resp B/P (MAP) Pulse Ox O2 Delivery O2 Flow Rate FiO2 07/16/19 09:00 98 13 119/49 (72) 100 07/16/19 08:21 97 07/16/19 08:00 98.2 99 16 113/67 (82) 98 07/16/19 08:00 Room Air 07/16/19 07:00 99 13 111/73 (86) 98 07/16/19 06:00 84 15 113/65 (81) 100 07/16/19 05:00 82 21 106/59 (75) 99 07/16/19 04:30 83 14 108/53 (71) 100 07/16/19 04:27 84 12 110/40 (63) 98 07/16/19 04:00 78 07/16/19 04:00 Room Air 07/16/19 04:00 97.4 117 18 127/101 (110) 99 07/16/19 03:00 82 12 118/51 (73) 100 07/16/19 02:00 76 14 105/51 (69) 100 07/16/19 01:15 77 14 109/48 (68) 99 07/16/19 01:00 101 15 116/64 (81) 99 07/16/19 00:45 89 13 112/80 (91) 99 07/16/19 00:15 92 15 111/48 (69) 99 07/16/19 00:00 Room Air 07/16/19 00:00 78 07/16/19 00:00 78 14 91/42 (58) 99 07/15/19 23:45 79 15 98/53 (68) 99 07/15/19 23:36 Room Air 07/15/19 23:30 97.6 81 14 103/55 (71) 99 07/15/19 23:20 98 13 07/15/19 23:00 98.1 81 16 111/74 99 Room Air 07/15/19 22:25 98.1 81 16 111/74 99 Room Air 07/15/19 21:00 98.1 80 16 116/79 99 Room Air 07/15/19 19:30 98.1 83 16 125/81 98 Room Air 07/15/19 16:21 97.6 86 16 102/70 98 Room Air 07/15/19 14:10 97.2 98 19 115/65 99 Room Air 07/15/19 14:01 97.0 110 20 100/60 (73) 98 Room Air Intake and Output 07/15/19 07/16/19 19:00 07:00 Intake Total 1018 ml 320 ml Output Total 80 ml Balance 1018 ml 240 ml Intake IV Total 1018 ml 320 ml Output Urine Total 80 ml # Bowel Movements 1 Laboratory Tests 07/15/19 14:28: White Blood Count 10.4, Red Blood Count 4.41, Hemoglobin 14.4, Hematocrit 44.4, Mean Corpuscular Volume 101H, Mean Corpuscular Hemoglobin 32.5H, Mean Corpuscular Hemoglobin Concent 32.3, Red Cell Distribution Width 12.8, Platelet Count 173, Mean Platelet Volume 8.5, Neutrophils (%) (Auto) 83.1H, Lymphocytes ( %) (Auto) 11.9L, Monocytes (%) (Auto) 4.1, Eosinophils (%) (Auto) 0.3, Basophils (%) (Auto) 0.6, Sodium Level 140, Potassium Level 7.0*H, Chloride Level 105, Carbon Dioxide Level 23, Anion Gap 12, Blood Urea Nitrogen 95H, Creatinine 3.5H, Estimat Glomerular Filtration Rate 12.4, Glucose Level > 1000*H , Hemoglobin A1c 10.0H, Calcium Level 10.5H, Phosphorus Level 5.9H, Magnesium Level 3.2H, Total Bilirubin 0.3, Aspartate Amino Transf (AST/SGOT) 10L, Alanine Aminotransferase (ALT/SGPT) 13, Alkaline Phosphatase 76, Troponin I 0.020, Total Protein 8.5H, Albumin 3.8, Globulin 4.7, Albumin/Globulin Ratio 0.8L, Serum Alcohol < 3, Acetone Level Negative 07/15/19 14:50: Arterial Blood pH 7.297L, Arterial Blood Partial Pressure CO2 39.5, Arterial Blood Partial Pressure O2 77.9, Arterial Blood HCO3 18.9L, Arterial Blood Oxygen Saturation 93.9L, Arterial Blood Base Excess -7.1L, Jh Test Positive 07/15/19 15:15: Urine Color Pale yellow, Urine Appearance Clear, Urine pH 5, Urine Specific [place] 1.010, Urine Protein Negative, Urine Glucose (UA) 4+H, Urine Ketones Negative, Urine Blood 1+H, Urine Nitrite PositiveH, Urine Bilirubin Negative, Urine Urobilinogen Normal, Urine Leukocyte Esterase 1+H, Urine RBC 0-2, Urine WBC 2-4, Urine Squamous Epithelial Cells Occasional, Urine Bacteria ManyH, Urine HCG, Qualitative Negative, Urine Opiates Screen Negative, Urine Barbiturates Screen Negative, Phencyclidine (PCP) Screen Negative, Urine Amphetamines Screen Negative, Urine Benzodiazepines Screen Negative, Urine Cocaine Screen Negative, Urine Marijuana (THC) Screen Negative 07/16/19 00:19: Sodium Level 157#H, Potassium Level 3.7, Chloride Level 122H, Carbon Dioxide Level 21, Anion Gap 14, Blood Urea Nitrogen 80H, Creatinine 2.6H, Estimat Glomerular Filtration Rate 17.4, Glucose Level 76#, Calcium Level 10.5H 07/16/19 04:20: White Blood Count 12.0H, Red Blood Count 4.13L, Hemoglobin 13.7, Hematocrit 39.0 , Mean Corpuscular Volume 95, Mean Corpuscular Hemoglobin 33.2H, Mean Corpuscular Hemoglobin Concent 35.1, Red Cell Distribution Width 11.5L, Platelet Count 178, Mean Platelet Volume 8.3, Neutrophils (%) (Auto) 68.2, Lymphocytes (%) (Auto) 21.1, Monocytes (%) (Auto) 8.9, Eosinophils (%) (Auto) 0.9, Basophils (%) (Auto) 0.8, Sodium Level 161*H, Potassium Level 4.1, Chloride Level 122H, Carbon Dioxide Level 22, Anion Gap 17H, Blood Urea Nitrogen 79H, Creatinine 2.5H, Estimat Glomerular Filtration Rate 18.3, Glucose Level 54L, Calcium Level 10.6H Height (Feet): 5 Height (Inches): 5.00 Weight (Pounds): 124 Vikki Jackson M.D. Jul 16, 2019 10:27
--- NOTE | 2019-07-16 10:56 | NUR ---
NURSE NOTES: Pt is sleeping in bed. Turned and repositioned pt. Oral care done. No acute distress noted. Will continue to monitor.
--- NOTE | 2019-07-16 11:18 | General Progress Note ---
Assessment/Plan Assessment/Plan: 88 year old woman with history of afib on DOAC, CVA, dementia, hypertension, hyperlipidemia, diabetes who presented to ED with: #Uncontrolled NIDDM, HONK #TREVOR #Severe hyperkalemia with EKG changes -Cont. in-patient ICU care -cont. Insulin drip protocol, monitor glucose levels, repeat BMP tonight, monitor K levels closely -07/14: S/p right femoral rainer cath placed by Gen Sx -Nephrology for HD -Endocrine consulted -hold metformin -hold losartan #Acute metabolic encephalopathy #Dementia #history of CVA -hold Aricept and Namenda -Treat underlying acute medical problems -Supportive care -Aspiration and fall precautions #Atrial fibrillation #HTN -hold metop, nifedipine for now -hold anticoagulation for now -Cardio, Dr. Macias, consulted I spent 65 minutes on this patient's case, and 35 mins was dedicated to critical care. Additional 25 minutes on review of medical records including prior hospital records, consult notes, progress notes, procedures, imaging, labs, hemodynamics , and other clinical documentation. Critical Care Services performed include: Telemetry Review Hemodynamic measurement interpretation Laboratory data review and interpretation Radiology image review and interpretation Interpretation of ABG's Discussion of patient's care with ICU team, Nursing staff and/or consulting services Subjective ROS Limited/Unobtainable: Yes - pt is lethargic Allergies: Coded Allergies: NO KNOWN ALLERGIES (Unverified Allergy, Unknown, 12/09/14) Subjective F/u for DKA, TREVOR, UTI, afib. Pt confused. Objective Last 24 Hour Vital Signs Date Time Temp Pulse Resp B/P (MAP) Pulse Ox O2 Delivery O2 Flow Rate FiO2 07/16/19 10:00 98 13 119/49 (72) 100 07/16/19 10:00 89 12 105/41 (62) 100 07/16/19 09:00 98 13 119/49 (72) 100 07/16/19 08:21 97 07/16/19 08:00 98.2 99 16 113/67 (82) 98 07/16/19 08:00 Room Air 07/16/19 07:00 99 13 111/73 (86) 98 07/16/19 06:00 84 15 113/65 (81) 100 07/16/19 05:00 82 21 106/59 (75) 99 4/11/20 04:30 83 14 108/53 (71) 100 07/16/19 04:27 84 12 110/40 (63) 98 07/16/19 04:00 78 07/16/19 04:00 Room Air 07/16/19 04:00 97.4 117 18 127/101 (110) 99 07/16/19 03:00 82 12 118/51 (73) 100 07/16/19 02:00 76 14 105/51 (69) 100 07/16/19 01:15 77 14 109/48 (68) 99 07/16/19 01:00 101 15 116/64 (81) 99 07/16/19 00:45 89 13 112/80 (91) 99 07/16/19 00:15 92 15 111/48 (69) 99 07/16/19 00:00 Room Air 07/16/19 00:00 78 07/16/19 00:00 78 14 91/42 (58) 99 07/15/19 23:45 79 15 98/53 (68) 99 07/15/19 23:36 Room Air 07/15/19 23:30 97.6 81 14 103/55 (71) 99 07/15/19 23:20 98 13 07/15/19 23:00 98.1 81 16 111/74 99 Room Air 07/15/19 22:25 98.1 81 16 111/74 99 Room Air 07/15/19 21:00 98.1 80 16 116/79 99 Room Air 07/15/19 19:30 98.1 83 16 125/81 98 Room Air 07/15/19 16:21 97.6 86 16 102/70 98 Room Air 07/15/19 14:10 97.2 98 19 115/65 99 Room Air 07/15/19 14:01 97.0 110 20 100/60 (73) 98 Room Air Intake and Output 07/15/19 07/16/19 19:00 07:00 Intake Total 1018 ml 320 ml Output Total 80 ml Balance 1018 ml 240 ml Intake IV Total 1018 ml 320 ml Output Urine Total 80 ml # Bowel Movements 1 Laboratory Tests 07/15/19 14:28: White Blood Count 10.4, Red Blood Count 4.41, Hemoglobin 14.4, Hematocrit 44.4, Mean Corpuscular Volume 101H, Mean Corpuscular Hemoglobin 32.5H, Mean Corpuscular Hemoglobin Concent 32.3, Red Cell Distribution Width 12.8, Platelet Count 173, Mean Platelet Volume 8.5, Neutrophils (%) (Auto) 83.1H, Lymphocytes ( %) (Auto) 11.9L, Monocytes (%) (Auto) 4.1, Eosinophils (%) (Auto) 0.3, Basophils (%) (Auto) 0.6, Sodium Level 140, Potassium Level 7.0*H, Chloride Level 105, Carbon Dioxide Level 23, Anion Gap 12, Blood Urea Nitrogen 95H, Creatinine 3.5H, Estimat Glomerular Filtration Rate 12.4, Glucose Level > 1000*H , Hemoglobin A1c 10.0H, Calcium Level 10.5H, Phosphorus Level 5.9H, Magnesium Level 3.2H, Total Bilirubin 0.3, Aspartate Amino Transf (AST/SGOT) 10L, Alanine Aminotransferase (ALT/SGPT) 13, Alkaline Phosphatase 76, Troponin I 0.020, Total Protein 8.5H, Albumin 3.8, Globulin 4.7, Albumin/Globulin Ratio 0.8L, Serum Alcohol < 3, Acetone Level Negative 07/15/19 14:50: Arterial Blood pH 7.297L, Arterial Blood Partial Pressure CO2 39.5, Arterial Blood Partial Pressure O2 77.9, Arterial Blood HCO3 18.9L, Arterial Blood Oxygen Saturation 93.9L, Arterial Blood Base Excess -7.1L, Jh Test Positive 07/15/19 15:15: Urine Color Pale yellow, Urine Appearance Clear, Urine pH 5, Urine Specific [place] 1.010, Urine Protein Negative, Urine Glucose (UA) 4+H, Urine Ketones Negative, Urine Blood 1+H, Urine Nitrite PositiveH, Urine Bilirubin Negative, Urine Urobilinogen Normal, Urine Leukocyte Esterase 1+H, Urine RBC 0-2, Urine WBC 2-4, Urine Squamous Epithelial Cells Occasional, Urine Bacteria ManyH, Urine HCG, Qualitative Negative, Urine Opiates Screen Negative, Urine Barbiturates Screen Negative, Phencyclidine (PCP) Screen Negative, Urine Amphetamines Screen Negative, Urine Benzodiazepines Screen Negative, Urine Cocaine Screen Negative, Urine Marijuana (THC) Screen Negative 07/16/19 00:19: Sodium Level 157#H, Potassium Level 3.7, Chloride Level 122H, Carbon Dioxide Level 21, Anion Gap 14, Blood Urea Nitrogen 80H, Creatinine 2.6H, Estimat Glomerular Filtration Rate 17.4, Glucose Level 76#, Calcium Level 10.5H 07/16/19 04:20: White Blood Count 12.0H, Red Blood Count 4.13L, Hemoglobin 13.7, Hematocrit 39.0 , Mean Corpuscular Volume 95, Mean Corpuscular Hemoglobin 33.2H, Mean Corpuscular Hemoglobin Concent 35.1, Red Cell Distribution Width 11.5L, Platelet Count 178, Mean Platelet Volume 8.3, Neutrophils (%) (Auto) 68.2, Lymphocytes (%) (Auto) 21.1, Monocytes (%) (Auto) 8.9, Eosinophils (%) (Auto) 0.9, Basophils (%) (Auto) 0.8, Sodium Level 161*H, Potassium Level 4.1, Chloride Level 122H, Carbon Dioxide Level 22, Anion Gap 17H, Blood Urea Nitrogen 79H, Creatinine 2.5H, Estimat Glomerular Filtration Rate 18.3, Glucose Level 54L, Calcium Level 10.6H Height (Feet): 5 Height (Inches): 5.00 Weight (Pounds): 124 Objective General Appearance: lethargic, confused, withdraws to pain Neck: supple, normal inspection Respiratory/Chest: lungs clear, normal breath sounds, no respiratory distress, no accessory muscle use Cardiovascular/Chest: normal rate, regular rhythm Abdomen: non tender, soft Extremities: non-tender, normal inspection, no calf tenderness Ester Villegas M.D. Jul 16, 2019 11:18
--- NOTE | 2019-07-16 12:23 | Infectious Diseases Prog Note ---
Assessment/Plan Assessment/Plan Full consult dictated: A) 1) gram neg uti, possible sepsis 2) hypernatremia 3) allergies - nkda P) 1) cefepime 2) f/u on cultures 3) icu, supportive 4) thank you Subjective Allergies: Coded Allergies: NO KNOWN ALLERGIES (Unverified Allergy, Unknown, 12/09/14) Objective Vital Signs Last 24 Hour Vital Signs Date Time Temp Pulse Resp B/P (MAP) Pulse Ox O2 Delivery O2 Flow Rate FiO2 07/16/19 10:00 98 13 119/49 (72) 100 07/16/19 10:00 89 12 105/41 (62) 100 07/16/19 09:00 98 13 119/49 (72) 100 07/16/19 08:21 97 07/16/19 08:00 98.2 99 16 113/67 (82) 98 07/16/19 08:00 Room Air 07/16/19 07:00 99 13 111/73 (86) 98 07/16/19 06:00 84 15 113/65 (81) 100 07/16/19 05:00 82 21 106/59 (75) 99 07/16/19 04:30 83 14 108/53 (71) 100 07/16/19 04:27 84 12 110/40 (63) 98 07/16/19 04:00 78 07/16/19 04:00 Room Air 07/16/19 04:00 97.4 117 18 127/101 (110) 99 07/16/19 03:00 82 12 118/51 (73) 100 07/16/19 02:00 76 14 105/51 (69) 100 07/16/19 01:15 77 14 109/48 (68) 99 07/16/19 01:00 101 15 116/64 (81) 99 07/16/19 00:45 89 13 112/80 (91) 99 07/16/19 00:15 92 15 111/48 (69) 99 07/16/19 00:00 Room Air 07/16/19 00:00 78 07/16/19 00:00 78 14 91/42 (58) 99 07/15/19 23:45 79 15 98/53 (68) 99 07/15/19 23:36 Room Air 07/15/19 23:30 97.6 81 14 103/55 (71) 99 07/15/19 23:20 98 13 07/15/19 23:00 98.1 81 16 111/74 99 Room Air 07/15/19 22:25 98.1 81 16 111/74 99 Room Air 07/15/19 21:00 98.1 80 16 116/79 99 Room Air 07/15/19 19:30 98.1 83 16 125/81 98 Room Air 07/15/19 16:21 97.6 86 16 102/70 98 Room Air 07/15/19 14:10 97.2 98 19 115/65 99 Room Air 07/15/19 14:01 97.0 110 20 100/60 (73) 98 Room Air Height (Feet): 5 Height (Inches): 5.00 Weight (Pounds): 124 Microbiology Date/Time Source Procedure Growth Status 07/15/19 15:15 Urine,Clean Catch Urine Culture - Preliminary Gram Negative Jonathan Resulted Laboratory Tests Test 07/15/19 14:28 07/15/19 14:50 07/15/19 15:15 07/16/19 00:19 White Blood Count 10.4 K/UL (4.8-10.8) Red Blood Count 4.41 M/UL (4.20-5.40) Hemoglobin 14.4 G/DL (12.0-16.0) Hematocrit 44.4 % (37.0-47.0) Mean Corpuscular Volume 101 FL (80-99) H Mean Corpuscular Hemoglobin 32.5 PG (27.0-31.0) H Mean Corpuscular Hemoglobin Concent 32.3 G/DL (32.0-36.0) Red Cell Distribution Width 12.8 % (11.6-14.8) Platelet Count 173 K/UL (150-450) Mean Platelet Volume 8.5 FL (6.5-10.1) Neutrophils (%) (Auto) 83.1 % (45.0-75.0) H Lymphocytes (%) (Auto) 11.9 % (20.0-45.0) L Monocytes (%) (Auto) 4.1 % (1.0-10.0) Eosinophils (%) (Auto) 0.3 % (0.0-3.0) Basophils (%) (Auto) 0.6 % (0.0-2.0) Sodium Level 140 MMOL/L (136-145) 157 MMOL/L (136-145) #H Potassium Level 7.0 MMOL/L (3.5-5.1) *H 3.7 MMOL/L (3.5-5.1) Chloride Level 105 MMOL/L (98-107) 122 MMOL/L (98-107) H Carbon Dioxide Level 23 MMOL/L (21-32) 21 MMOL/L (21-32) Anion Gap 12 mmol/L (5-15) 14 mmol/L (5-15) Blood Urea Nitrogen 95 mg/dL (7-18) H 80 mg/dL (7-18) H Creatinine 3.5 MG/DL (0.55-1.30) H 2.6 MG/DL (0.55-1.30) H Estimat Glomerular Filtration Rate 12.4 mL/min (>60) 17.4 mL/min (>60) Glucose Level > 1000 MG/DL (74-106) *H 76 MG/DL (74-106) # Hemoglobin A1c 10.0 % (4.3-6.0) H Calcium Level 10.5 MG/DL (8.5-10.1) H 10.5 MG/DL (8.5-10.1) H Phosphorus Level 5.9 MG/DL (2.5-4.9) H Magnesium Level 3.2 MG/DL (1.8-2.4) H Total Bilirubin 0.3 MG/DL (0.2-1.0) Aspartate Amino Transf (AST/SGOT) 10 U/L (15-37) L Alanine Aminotransferase (ALT/SGPT) 13 U/L (12-78) Alkaline Phosphatase 76 U/L (46-116) Troponin I 0.020 ng/mL (0.000-0.056) Total Protein 8.5 G/DL (6.4-8.2) H Albumin 3.8 G/DL (3.4-5.0) Globulin 4.7 g/dL Albumin/Globulin Ratio 0.8 (1.0-2.7) L Serum Alcohol < 3 mg/dL Acetone Level Negative (NEGATIVE) Arterial Blood pH 7.297 (7.350-7.450) Arterial Blood Partial Pressure CO2 39.5 mmHg (35.0-45.0) Arterial Blood Partial Pressure O2 77.9 mmHg (75.0-100.0) Arterial Blood HCO3 18.9 mmol/L (22.0-26.0) L Arterial Blood Oxygen Saturation 93.9 % (95-100) L Arterial Blood Base Excess -7.1 (-2-2) L Jh Test Positive Urine Color Pale yellow Urine Appearance Clear Urine pH 5 (4.5-8.0) Urine Specific [place] 1.010 (1.005-1.035) Urine Protein Negative (NEGATIVE) Urine Glucose (UA) 4+ (NEGATIVE) H Urine Ketones Negative (NEGATIVE) Urine Blood 1+ (NEGATIVE) H Urine Nitrite Positive (NEGATIVE) H Urine Bilirubin Negative (NEGATIVE) Urine Urobilinogen Normal MG/DL (0.0-1.0) Urine Leukocyte Esterase 1+ (NEGATIVE) H Urine RBC 0-2 /HPF (0 - 2) Urine WBC 2-4 /HPF (0 - 2) Urine Squamous Epithelial Cells Occasional /LPF Urine Bacteria Many /HPF (NONE) H Urine HCG, Qualitative Negative (NEGATIVE) Urine Opiates Screen Negative (NEGATIVE) Urine Barbiturates Screen Negative (NEGATIVE) Phencyclidine (PCP) Screen Negative (NEGATIVE) Urine Amphetamines Screen Negative (NEGATIVE) Urine Benzodiazepines Screen Negative (NEGATIVE) Urine Cocaine Screen Negative (NEGATIVE) Urine Marijuana (THC) Screen Negative (NEGATIVE) Test 07/16/19 04:20 White Blood Count 12.0 K/UL (4.8-10.8) H Red Blood Count 4.13 M/UL (4.20-5.40) L Hemoglobin 13.7 G/DL (12.0-16.0) Hematocrit 39.0 % (37.0-47.0) Mean Corpuscular Volume 95 FL (80-99) Mean Corpuscular Hemoglobin 33.2 PG (27.0-31.0) H Mean Corpuscular Hemoglobin Concent 35.1 G/DL (32.0-36.0) Red Cell Distribution Width 11.5 % (11.6-14.8) L Platelet Count 178 K/UL (150-450) Mean Platelet Volume 8.3 FL (6.5-10.1) Neutrophils (%) (Auto) 68.2 % (45.0-75.0) Lymphocytes (%) (Auto) 21.1 % (20.0-45.0) Monocytes (%) (Auto) 8.9 % (1.0-10.0) Eosinophils (%) (Auto) 0.9 % (0.0-3.0) Basophils (%) (Auto) 0.8 % (0.0-2.0) Sodium Level 161 MMOL/L (136-145) *H Potassium Level 4.1 MMOL/L (3.5-5.1) Chloride Level 122 MMOL/L (98-107) H Carbon Dioxide Level 22 MMOL/L (21-32) Anion Gap 17 mmol/L (5-15) H Blood Urea Nitrogen 79 mg/dL (7-18) H Creatinine 2.5 MG/DL (0.55-1.30) H Estimat Glomerular Filtration Rate 18.3 mL/min (>60) Glucose Level 54 MG/DL (74-106) L Calcium Level 10.6 MG/DL (8.5-10.1) H Current Medications Medications (Trade) Dose Ordered Sig/Jaylen Route PRN Reason Start Time Stop Time Status Last Admin Dose Admin Acetaminophen (Tylenol) 650 mg Q4H PRN ORAL Mild Pain (Pain Scale 1-3) 07/15/19 16:45 08/14/19 16:44 Albuterol/ Ipratropium (Albuterol/ Ipratropium) 3 ml Q4H PRN HHN Shortness of Breath 07/15/19 16:45 07/20/19 16:44 Cefepime HCl 1 gm/ Dextrose 55 ml @ 110 mls/hr Q12H IVPB 07/16/19 13:00 07/23/19 12:59 Chlorhexidine Gluconate (Ailyn-Hex 2%) 1 applic DAILY@2000 TOPIC 07/16/19 20:00 10/14/19 19:59 Dextrose (Dextrose 50%) 25 ml Q30M PRN IV Hypoglycemia 07/16/19 01:15 10/14/19 01:14 Dextrose (Dextrose 50%) 50 ml Q30M PRN IV Hypoglycemia 07/16/19 01:15 10/14/19 01:14 Docusate Sodium (Colace) 100 mg EVERY 12 HOURS ORAL 07/15/19 21:00 08/14/19 20:59 Heparin Sodium (Porcine) (Heparin 5000 units/ml) 5,000 units EVERY 8 HOURS SUBQ 07/15/19 22:00 08/29/19 21:59 07/16/19 05:23 Insulin Aspart (NovoLOG) BEFORE MEALS AND HS SUBQ 07/16/19 06:30 10/14/19 06:29 07/16/19 12:17 Insulin Aspart (NovoLOG) 3 units NOVOTIAC SUBQ 07/16/19 06:30 10/14/19 06:29 07/16/19 12:18 Insulin Detemir (Levemir) 10 units BEDTIME SUBQ 07/16/19 02:00 10/14/19 01:59 Ondansetron HCl (Zofran) 4 mg Q6H PRN IVP Nausea & Vomiting 07/15/19 16:45 08/14/19 16:44 Sodium Chloride 1,000 ml @ 150 mls/hr Q6H40M IV 07/16/19 09:00 08/15/19 08:59 07/16/19 08:54 Maryanne Bhatti MD Jul 16, 2019 12:22
--- NOTE | 2019-07-16 12:30 | Diagnostic Imaging Report ---
EXAM: XR Chest, 1 View CLINICAL HISTORY: ABN CHST TECHNIQUE: Frontal view of the chest. COMPARISON: Chest radiograph on 12/09/2014 FINDINGS: Hardware: None. Lungs/pleura: Asymmetric haziness in the left lung. No pleural effusion or pneumothorax. Heart/mediastinum: Stable significantly enlarged cardiac silhouette. Left-sided pacemaker. Soft tissues: Unremarkable. Bones: No acute fracture. Generative changes of the visualized right shoulder. Degenerative changes of the spine. Upper abdomen: Normal. IMPRESSION: Stable significantly enlarged cardiac silhouette. Asymmetric haziness in the left lung may be secondary to patient rotation/artifact. Asymmetric mild pulmonary edema not excluded.
--- NOTE | 2019-07-16 12:34 | NUR ---
NURSE NOTES: Dr Villegas at bedside, assessing the patient. Updated her with pt's current condition, including elevated sugar and diet at home. Verbal orders received. Will proceed the orders.
[2019-07-16] MEDS ORDERED: Cefepime HCl 1 GM in D5W 55 ML IVPB SCH (13:00)
[2019-07-16 13:38] LABS: ANION GAP 14 mmol/L (5-15); BLOOD UREA NITROGEN 80 mg/dL (7-18); CALCIUM 9.4 MG/DL (8.5-10.1); CARBON DIOXIDE 20 MMOL/L (21-32); CHLORIDE 115 MMOL/L (98-107); CREATININE 2.7 MG/DL (0.55-1.30); POTASSIUM 4.2 MMOL/L (3.5-5.1); SODIUM 149 MMOL/L (136-145)
[2019-07-16] MEDS ORDERED: sitaGLIPtin 25mg tab ORAL SCH (13:45)
--- NOTE | 2019-07-16 15:36 | NUR ---
NURSE NOTES: Levemir 12 units given as per order. Pt is asymptomatic for high sugar. Pt is resting in bed. Will recheck sugar before dinner.
--- NOTE | 2019-07-16 16:44 | NUR ---
NURSE NOTES: Cleaned pt for leaked urine. New pure wick applied. Afebrile. Turned and repositioned pt. Will recheck BS as ordered.
[2019-07-16] MEDS ORDERED: NovoLOG Insulin Flexpen SUBQ SCH (16:50)
--- NOTE | 2019-07-16 17:00 | NUR ---
NURSE NOTES: Dr Macias here to see the patient. Orders to continue custodial meds and do 2Decho received, noted, and carried out. Addendum: 07/16/19 at 1851 by KEANU HERNANDEZ RN RN NURSE NOTES: Dr Macias here to see the patient. Orders to continue 3 custodial meds and do 2Decho received, noted, and carried out.
--- NOTE | 2019-07-16 17:30 | Consultation ---
DATE OF CONSULTATION: 07/16/2019 CONSULTING PHYSICIAN: Butch Aguilar MD. HISTORY OF PRESENT ILLNESS: This is an 88-year-old female with history of chronic atrial fibrillation, on anticoagulation. She is also known to have CVA, dementia, hypertension, and hyperlipidemia as well as diabetes, who came to the hospital for evaluation of encephalopathy. She has also hyperglycemic. The patient lives at home and has been confused and disoriented. She was found to be markedly hyperglycemic. The patient was admitted to the ICU and started on insulin drip. HOME MEDICATIONS: Include donepezil, ferrous sulfate, Lasix, Vascepa, losartan, Namenda, metoprolol, nifedipine, and Xarelto. SOCIAL HISTORY: Lives at home. No other information known. SURGERIES: Not known. PHYSICAL EXAMINATION: GENERAL: Reveals an 88-year-old female. VITAL SIGNS: Blood pressure is 105/40, heart rate is 94, respirations are 16, he is afebrile, and O2 saturation 100% on room air. HEENT: Unremarkable. LUNGS: Clear breath sounds bilaterally. ABDOMEN: Soft. EXTREMITIES: There is no edema. LABORATORY DATA: Lab testing shows white count 5, hemoglobin 13. Sodium 161, creatinine 2.5. ABG is pH 7.2, pCO2 of 39, pO2 of 77. Imaging studies show per report of x-ray of chest, there are normal findings bilaterally; however, for further review, I note an x-ray of chest has not been obtained. IMPRESSION: 1. Hyperosmolar nonketotic coma. 2. Renal failure. 3. Hypernatremia. 4. Atrial fibrillation. 5. Hypertension. DISCUSSION: Admit to the hospital. We will obtain chest x-ray. Continue hypotonic fluids and diabetes control. We will follow carefully. Butch Aguilar M.D. DR: Tanya JOB#: [id number] CC:
--- NOTE | 2019-07-16 17:41 | Cardiac Electrophysiology PN ---
Subjective Subjective [id number] Objective Last 24 Hour Vital Signs Date Time Temp Pulse Resp B/P (MAP) Pulse Ox O2 Delivery O2 Flow Rate FiO2 07/16/19 16:19 72 07/16/19 16:00 97.9 82 14 115/56 (75) 98 07/16/19 16:00 Room Air 07/16/19 15:00 75 12 119/56 (77) 100 07/16/19 14:00 76 12 103/42 (62) 100 07/16/19 13:00 86 12 112/53 (72) 100 07/16/19 12:00 98.4 73 12 132/50 (77) 100 07/16/19 12:00 Room Air 07/16/19 11:29 83 07/16/19 11:29 83 07/16/19 11:00 80 13 111/51 (71) 100 07/16/19 10:00 98 13 119/49 (72) 100 07/16/19 10:00 89 12 105/41 (62) 100 07/16/19 09:00 98 13 119/49 (72) 100 07/16/19 08:21 97 07/16/19 08:00 98.2 99 16 113/67 (82) 98 07/16/19 08:00 Room Air 07/16/19 07:00 99 13 111/73 (86) 98 07/16/19 06:00 84 15 113/65 (81) 100 07/16/19 05:00 82 21 106/59 (75) 99 07/16/19 04:30 83 14 108/53 (71) 100 07/16/19 04:27 84 12 110/40 (63) 98 07/16/19 04:00 78 07/16/19 04:00 Room Air 07/16/19 04:00 97.4 117 18 127/101 (110) 99 07/16/19 03:00 82 12 118/51 (73) 100 07/16/19 02:00 76 14 105/51 (69) 100 07/16/19 01:15 77 14 109/48 (68) 99 07/16/19 01:00 101 15 116/64 (81) 99 07/16/19 00:45 89 13 112/80 (91) 99 07/16/19 00:15 92 15 111/48 (69) 99 07/16/19 00:00 Room Air 07/16/19 00:00 78 07/16/19 00:00 78 14 91/42 (58) 99 07/15/19 23:45 79 15 98/53 (68) 99 07/15/19 23:36 Room Air 07/15/19 23:30 97.6 81 14 103/55 (71) 99 07/15/19 23:20 98 13 07/15/19 23:00 98.1 81 16 111/74 99 Room Air 07/15/19 22:25 98.1 81 16 111/74 99 Room Air 07/15/19 21:00 98.1 80 16 116/79 99 Room Air 07/15/19 19:30 98.1 83 16 125/81 98 Room Air Intake and Output 07/15/19 07/16/19 19:00 07:00 Intake Total 1018 ml 320 ml Output Total 80 ml Balance 1018 ml 240 ml Intake IV Total 1018 ml 320 ml Output Urine Total 80 ml # Bowel Movements 1 Laboratory Tests Test 07/16/19 00:19 07/16/19 04:20 07/16/19 12:30 Sodium Level 157 MMOL/L (136-145) #H 161 MMOL/L (136-145) *H 149 MMOL/L (136-145) #H Potassium Level 3.7 MMOL/L (3.5-5.1) 4.1 MMOL/L (3.5-5.1) 4.2 MMOL/L (3.5-5.1) Chloride Level 122 MMOL/L (98-107) H 122 MMOL/L (98-107) H 115 MMOL/L (98-107) H Carbon Dioxide Level 21 MMOL/L (21-32) 22 MMOL/L (21-32) 20 MMOL/L (21-32) L Anion Gap 14 mmol/L (5-15) 17 mmol/L (5-15) H 14 mmol/L (5-15) Blood Urea Nitrogen 80 mg/dL (7-18) H 79 mg/dL (7-18) H 80 mg/dL (7-18) H Creatinine 2.6 MG/DL (0.55-1.30) H 2.5 MG/DL (0.55-1.30) H 2.7 MG/DL (0.55-1.30) H Estimat Glomerular Filtration Rate 17.4 mL/min (>60) 18.3 mL/min (>60) 16.7 mL/min (>60) Glucose Level 76 MG/DL (74-106) # 54 MG/DL (74-106) L 430 MG/DL (74-106) #H Calcium Level 10.5 MG/DL (8.5-10.1) H 10.6 MG/DL (8.5-10.1) H 9.4 MG/DL (8.5-10.1) White Blood Count 12.0 K/UL (4.8-10.8) H Red Blood Count 4.13 M/UL (4.20-5.40) L Hemoglobin 13.7 G/DL (12.0-16.0) Hematocrit 39.0 % (37.0-47.0) Mean Corpuscular Volume 95 FL (80-99) Mean Corpuscular Hemoglobin 33.2 PG (27.0-31.0) H Mean Corpuscular Hemoglobin Concent 35.1 G/DL (32.0-36.0) Red Cell Distribution Width 11.5 % (11.6-14.8) L Platelet Count 178 K/UL (150-450) Mean Platelet Volume 8.3 FL (6.5-10.1) Neutrophils (%) (Auto) 68.2 % (45.0-75.0) Lymphocytes (%) (Auto) 21.1 % (20.0-45.0) Monocytes (%) (Auto) 8.9 % (1.0-10.0) Eosinophils (%) (Auto) 0.9 % (0.0-3.0) Basophils (%) (Auto) 0.8 % (0.0-2.0) Microbiology Date/Time Source Procedure Growth Status 07/15/19 15:15 Urine,Clean Catch Urine Culture - Preliminary Gram Negative Jonathan Resulted Vladimir Macias MD Jul 16, 2019 17:41
[2019-07-16] MEDS ORDERED: Eliquis 2.5mg tablet ORAL SCH (18:00)
--- NOTE | 2019-07-16 18:53 | Neurology Progress Note ---
Interim History Interim History ROS Limited/Unobtainable: Yes - pt is lethargic Interim History open eye to stimuli, moans persistent right hemiparesis Objective Physical Exam Last Vital Signs Date Time Temp Pulse Resp B/P (MAP) Pulse Ox O2 Delivery O2 Flow Rate FiO2 07/16/19 18:00 73 16 131/54 (79) 100 07/16/19 16:00 97.9 07/16/19 16:00 Room Air Laboratory Tests Test 07/16/19 00:19 07/16/19 04:20 07/16/19 12:30 Sodium Level 157 MMOL/L (136-145) #H 161 MMOL/L (136-145) *H 149 MMOL/L (136-145) #H Potassium Level 3.7 MMOL/L (3.5-5.1) 4.1 MMOL/L (3.5-5.1) 4.2 MMOL/L (3.5-5.1) Chloride Level 122 MMOL/L (98-107) H 122 MMOL/L (98-107) H 115 MMOL/L (98-107) H Carbon Dioxide Level 21 MMOL/L (21-32) 22 MMOL/L (21-32) 20 MMOL/L (21-32) L Anion Gap 14 mmol/L (5-15) 17 mmol/L (5-15) H 14 mmol/L (5-15) Blood Urea Nitrogen 80 mg/dL (7-18) H 79 mg/dL (7-18) H 80 mg/dL (7-18) H Creatinine 2.6 MG/DL (0.55-1.30) H 2.5 MG/DL (0.55-1.30) H 2.7 MG/DL (0.55-1.30) H Estimat Glomerular Filtration Rate 17.4 mL/min (>60) 18.3 mL/min (>60) 16.7 mL/min (>60) Glucose Level 76 MG/DL (74-106) # 54 MG/DL (74-106) L 430 MG/DL (74-106) #H Calcium Level 10.5 MG/DL (8.5-10.1) H 10.6 MG/DL (8.5-10.1) H 9.4 MG/DL (8.5-10.1) White Blood Count 12.0 K/UL (4.8-10.8) H Red Blood Count 4.13 M/UL (4.20-5.40) L Hemoglobin 13.7 G/DL (12.0-16.0) Hematocrit 39.0 % (37.0-47.0) Mean Corpuscular Volume 95 FL (80-99) Mean Corpuscular Hemoglobin 33.2 PG (27.0-31.0) H Mean Corpuscular Hemoglobin Concent 35.1 G/DL (32.0-36.0) Red Cell Distribution Width 11.5 % (11.6-14.8) L Platelet Count 178 K/UL (150-450) Mean Platelet Volume 8.3 FL (6.5-10.1) Neutrophils (%) (Auto) 68.2 % (45.0-75.0) Lymphocytes (%) (Auto) 21.1 % (20.0-45.0) Monocytes (%) (Auto) 8.9 % (1.0-10.0) Eosinophils (%) (Auto) 0.9 % (0.0-3.0) Basophils (%) (Auto) 0.8 % (0.0-2.0) Head: normocophalic Neck: no rigidity EENT: benign Neurologic Exam Objective somnolent, open eyes to pain right spastic hemiparesis cc 36 min Impression/Recommendations Problems: (1) Elevated troponin (2) Elevated LFTs (3) Acute delirium (4) Sepsis (5) Altered level of consciousness (6) Uncontrolled type 2 diabetes mellitus with hyperosmolar nonketotic hyperglycemia (7) ARF (acute renal failure) (8) Encephalopathy acute (9) UTI (urinary tract infection) (10) Hyperkalemia Diagnostic Impression acute encephalopathy hx of advanced dementia Right spastic hemiparesis Sepsis Cultures pending atb broad spectrum hold namenda hold sedating Christopher Alvarez MD Jul 16, 2019 18:53
--- NOTE | 2019-07-16 19:19 | NUR ---
HAND-OFF: Report given to Mehran Alvarado RN.
--- NOTE | 2019-07-16 19:30 | NUR ---
NURSE NOTES: MD Donovan came in to see patient . notified him we are awaiting ABG to be done for possible transfer out of ICU. Stated he was okay with patient being transferred also.
--- NOTE | 2019-07-16 19:49 | Surgery Progress Note ---
Surgery Progress Note Subjective Procedure Performed Right femoral temporary hemodialysis catheter insertion Additional Comments k much improved a1c noted wbc 11k exam stable comfortable pending downgrade Objective Last 24 Hour Vital Signs Date Time Temp Pulse Resp B/P (MAP) Pulse Ox O2 Delivery O2 Flow Rate FiO2 07/16/19 19:00 73 16 124/54 (77) 100 07/16/19 18:00 73 16 131/54 (79) 100 07/16/19 17:00 76 12 149/96 (113) 100 07/16/19 16:19 72 07/16/19 16:00 97.9 82 14 115/56 (75) 98 07/16/19 16:00 Room Air 07/16/19 15:00 75 12 119/56 (77) 100 07/16/19 14:00 76 12 103/42 (62) 100 07/16/19 13:00 86 12 112/53 (72) 100 07/16/19 12:00 98.4 73 12 132/50 (77) 100 07/16/19 12:00 Room Air 07/16/19 11:29 83 07/16/19 11:29 83 07/16/19 11:00 80 13 111/51 (71) 100 07/16/19 10:00 98 13 119/49 (72) 100 07/16/19 10:00 89 12 105/41 (62) 100 07/16/19 09:00 98 13 119/49 (72) 100 07/16/19 08:21 97 07/16/19 08:00 98.2 99 16 113/67 (82) 98 07/16/19 08:00 Room Air 07/16/19 07:00 99 13 111/73 (86) 98 07/16/19 06:00 84 15 113/65 (81) 100 07/16/19 05:00 82 21 106/59 (75) 99 07/16/19 04:30 83 14 108/53 (71) 100 07/16/19 04:27 84 12 110/40 (63) 98 07/16/19 04:00 78 07/16/19 04:00 Room Air 07/16/19 04:00 97.4 117 18 127/101 (110) 99 07/16/19 03:00 82 12 118/51 (73) 100 07/16/19 02:00 76 14 105/51 (69) 100 07/16/19 01:15 77 14 109/48 (68) 99 07/16/19 01:00 101 15 116/64 (81) 99 07/16/19 00:45 89 13 112/80 (91) 99 07/16/19 00:15 92 15 111/48 (69) 99 07/16/19 00:00 Room Air 07/16/19 00:00 78 07/16/19 00:00 78 14 91/42 (58) 99 07/15/19 23:45 79 15 98/53 (68) 99 07/15/19 23:36 Room Air 07/15/19 23:30 97.6 81 14 103/55 (71) 99 07/15/19 23:20 98 13 07/15/19 23:00 98.1 81 16 111/74 99 Room Air 07/15/19 22:25 98.1 81 16 111/74 99 Room Air 07/15/19 21:00 98.1 80 16 116/79 99 Room Air I&O Intake and Output 07/15/19 07/16/19 19:00 07:00 Intake Total 1018 ml 320 ml Output Total 80 ml Balance 1018 ml 240 ml Intake IV Total 1018 ml 320 ml Output Urine Total 80 ml # Bowel Movements 1 Dressing: dry Cardiovascular: RSR Respiratory: clear Abdomen: soft, non-tender, present bowel sounds Extremities: no edema, no tenderness, no cyanosis Laboratory Tests Test 07/16/19 00:19 07/16/19 04:20 07/16/19 12:30 07/16/19 19:31 Sodium Level 157 MMOL/L (136-145) #H 161 MMOL/L (136-145) *H 149 MMOL/L (136-145) #H Potassium Level 3.7 MMOL/L (3.5-5.1) 4.1 MMOL/L (3.5-5.1) 4.2 MMOL/L (3.5-5.1) Chloride Level 122 MMOL/L (98-107) H 122 MMOL/L (98-107) H 115 MMOL/L (98-107) H Carbon Dioxide Level 21 MMOL/L (21-32) 22 MMOL/L (21-32) 20 MMOL/L (21-32) L Anion Gap 14 mmol/L (5-15) 17 mmol/L (5-15) H 14 mmol/L (5-15) Blood Urea Nitrogen 80 mg/dL (7-18) H 79 mg/dL (7-18) H 80 mg/dL (7-18) H Creatinine 2.6 MG/DL (0.55-1.30) H 2.5 MG/DL (0.55-1.30) H 2.7 MG/DL (0.55-1.30) H Estimat Glomerular Filtration Rate 17.4 mL/min (>60) 18.3 mL/min (>60) 16.7 mL/min (>60) Glucose Level 76 MG/DL (74-106) # 54 MG/DL (74-106) L 430 MG/DL (74-106) #H Calcium Level 10.5 MG/DL (8.5-10.1) H 10.6 MG/DL (8.5-10.1) H 9.4 MG/DL (8.5-10.1) White Blood Count 12.0 K/UL (4.8-10.8) H Red Blood Count 4.13 M/UL (4.20-5.40) L Hemoglobin 13.7 G/DL (12.0-16.0) Hematocrit 39.0 % (37.0-47.0) Mean Corpuscular Volume 95 FL (80-99) Mean Corpuscular Hemoglobin 33.2 PG (27.0-31.0) H Mean Corpuscular Hemoglobin Concent 35.1 G/DL (32.0-36.0) Red Cell Distribution Width 11.5 % (11.6-14.8) L Platelet Count 178 K/UL (150-450) Mean Platelet Volume 8.3 FL (6.5-10.1) Neutrophils (%) (Auto) 68.2 % (45.0-75.0) Lymphocytes (%) (Auto) 21.1 % (20.0-45.0) Monocytes (%) (Auto) 8.9 % (1.0-10.0) Eosinophils (%) (Auto) 0.9 % (0.0-3.0) Basophils (%) (Auto) 0.8 % (0.0-2.0) Arterial Blood pH 7.350 (7.350-7.450) Arterial Blood Partial Pressure CO2 33.6 mmHg (35.0-45.0) L Arterial Blood Partial Pressure O2 59.2 mmHg (75.0-100.0) L Arterial Blood HCO3 18.1 mmol/L (22.0-26.0) L Arterial Blood Oxygen Saturation 90.1 % (95-100) L Arterial Blood Base Excess -6.6 (-2-2) L Jh Test Positive Plan Problems: (1) Elevated troponin (2) Elevated LFTs (3) Hyperkalemia Assessment & Plan: Calcium Dextrose insulin as needed Urgent hemodialysis discussed with car escort labs improved discussed with nephro will monitor hold line (4) ARF (acute renal failure) (5) Encephalopathy acute (6) Acute delirium (7) Sepsis Assessment & Plan: Hyperglycemia, hyperkalemia, renal insufficiency. EKG with peaked T waves abnormal Emergent dialysis indicated recommended Complete examination performed chart reviewed discussion had with patient's family regards to history discussion had with primary care physician car escort Emergency hemodialysis catheter insertion temporary indicated recommended Please see procedure note We will follow with recommendations thank you for let me participate patient's care (8) UTI (urinary tract infection) (9) Altered level of consciousness (10) Uncontrolled type 2 diabetes mellitus with hyperosmolar nonketotic hyperglycemia Gilberto Donovan Jul 16, 2019 19:49
[2019-07-16] MEDS ORDERED: Dyna-Hex 2% Top Sol 2oz TOPIC SCH (20:00)
--- NOTE | 2019-07-16 20:01 | NUR ---
NURSE NOTES: PATIENT AWOKE, ORIENTED TO NAME, DENIED PAIN OR SOB, RESPIRATION REGULAR, O2 STURATION 100% ON ROOM AIR, HEART RATE 60'S/MIN A-FIB W/V-PACED, ABDOMEN SOFT, NO N/V NOTED, PURE WICK STATUS, YELLOW URINE OUTED, PPL TO RIGHT HAND AND FA, INTACT AND PATENT, ONGOING IV FLUID 1/2NS AT 150ML/HR VIA PPL, 2 POINT SOFT RESTRAINTS STATUS, MADE LOWER BED POSITION, ON BED ALARM AND LOCKED, PROVIDED CALL LIGHT WITHIN REACH.
--- NOTE | 2019-07-16 20:10 | NUR ---
NURSE NOTES: Called and relayed ABG Results for MD Louis at this time. Down grade order received. patient okay to transfer to [facility] at this time.
--- NOTE | 2019-07-16 20:40 | NUR ---
NURSE NOTES: GIVEN MEDICATION WITH THICK WATER, NO COUGH OR ASPIRATION NOTED WHILE SWALLOWING, KEPT HOB OVER 30 DEGREES, WILL CONTINUE TO MONITOR.
[2019-07-16] MEDS ORDERED: Atorvastatin 80mg tab ORAL SCH (21:00)
[2019-07-16] MEDS ORDERED: D5W 550ml IV ONE (21:09)
--- NOTE | 2019-07-16 21:23 | NUR ---
NURSE NOTES: PATIENT ASLEEP STATUS, NO DISTRESS NOTED AT THIS TIME.
--- NOTE | 2019-07-16 22:49 | NUR ---
NURSE NOTES: REPORTED TO KAREN DE GUZMAN.
--- NOTE | 2019-07-16 23:05 | NUR ---
NURSE NOTES: Patient awake and passive on answering to questions. Breathing unlabored on roomair without distress. No s/s or complaints of pain or discomfort noted at this time. IV noted on right hand and forearm intact and patent. On bilateral soft wrist restraint for patient safety. On purewick for incontinence care. Belongings confirmed with transferring RN. Bed placed at the lowest with alarm, brake, and siderails up for safety. Call light placed within reach. Will continue to monitor.
--- NOTE | 2019-07-16 23:05 | NUR ---
TRANSFER TO FLOOR: Patient transferred to med/elgin room 410-1 via hospital bed. Report given to GABRN. Belongings and medications given to GAB,RN. Family and or S/O informed of transfer.
--- NOTE | 2019-07-16 23:15 | NUR ---
NURSE NOTES: Bilateral soft wrist restraint order discontinued from ICU. Reached Dr. Louis regarding the restraint. Will wait for a call back.
--- NOTE | 2019-07-16 23:39 | NUR ---
NURSE NOTES: Received bilateral soft restraint order from Dr. Louis for pulling out medical devices. Patient placed on bilateral soft wrist restraint. Bilateral pulses present and skin intact. Will continue to monitor.
[2019-07-16 23:41] LABS: ANION GAP 12 mmol/L (5-15); BLOOD UREA NITROGEN 66 mg/dL (7-18); CARBON DIOXIDE 21 MMOL/L (21-32); CHLORIDE 116 MMOL/L (98-107); CREATININE 2.1 MG/DL (0.55-1.30); POTASSIUM 3.7 MMOL/L (3.5-5.1); SODIUM 149 MMOL/L (136-145)
--- NOTE | 2019-07-16 23:45 | Consultation ---
DATE OF CONSULTATION: 07/16/2019 ENDOCRINOLOGY CONSULTATION CONSULTING PHYSICIAN: Lucio North M.D. REFERRING PHYSICIAN: Harley Washington M.D. REASON FOR CONSULTATION: Diabetes management. HISTORY OF PRESENT ILLNESS: The patient is an 88-year-old female with a history of diabetes on oral agents. The patient presented to the hospital with severe hypocalcemia and open gap urine ketones were negative. The patient was found to have sepsis, admitted to [facility] for intensive support and treatment. I was called to manage by Levemir 10 units presently during last night with glucose of 92. Today, the glucose is over 300. PAST MEDICAL HISTORY: 1. Diabetes, on oral agents. 2. Hypertension. 3. Dementia. FAMILY HISTORY: Noncontributory. SOCIAL HISTORY: No smoking, alcohol, or drug use. REVIEW OF SYSTEMS: A 12-point review of systems was performed. Pertinent positives and negatives are mentioned in history of present illness. LABORATORY VALUES: Urine 4+ glucose, 1+ blood, positive for nitrites and ketones are negative. Urine toxicology was negative. CBC shows WBC of 12,000, hemoglobin 13, hematocrit 39, platelets of 178. Sodium on presentation was 140 with a potassium of 7, chloride of 105, bicarb 22. BUN 95, creatinine 3.5. Glucose of over a 1000. Calcium 10.5. FAMILY HISTORY: Noncontributory. MEDICATIONS: Reviewed and reconciled. PHYSICAL EXAMINATION: VITAL SIGNS: Blood pressure 131/53, heart rate of 86, respiratory rate of 12, temperature of 98.4. HEENT: Pupils are reactive to light. Sclerae anicteric. NECK: No JVD. LUNGS: Clear. ABDOMEN: Positive bowel sounds. EXTREMITIES: Positive for edema. DIAGNOSIS: 1. Severe hyperglycemia without DKA. 2. Acute kidney injury. 3. Sepsis. 4. Diabetes, out of control. PLAN: 1. Continue hydration. 2. Continue acute care. 3. Start Levemir 12 units daily, the dose should not be not be held unless I am notified. 4. NovoLog 4 units before each meal, the dose should not be held unless I am notified. 5. Start Januvia 25 mg daily. 6. Sliding scale ac and at bedtime. Further adjustment according to blood glucose values. Thank you, Dr. Washington, for the courtesy of this consultation. Lucio North M.D. DR: BLAKE JOB#: [id number] CC: [place]
[2019-07-17 00:33] VITALS: BP 116/51
[2019-07-17] MEDS ORDERED: Albuterol/Ipratropium 3ml neb HHN PRN (00:45)
[2019-07-17] MEDS: Cefepime HCl 1 GM in D5W 55 ML IVPB SCH ×2 (01:07→14:47)
--- NOTE | 2019-07-17 01:45 | Consultation ---
DATE OF CONSULTATION: 07/16/2019 CARDIOLOGY CONSULTATION CONSULTING PHYSICIAN: Vladimir Macias MD. REFERRING PHYSICIAN: John Jerome MD. REASON FOR CONSULTATION: Evaluation of the patient's pacemaker and management of atrial fibrillation. 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 The patient was noted to have potassium of , peaked T-wave, acute renal failure, and dehydration. The patient was admitted to intensive care unit. The patient was requested to undergo emergency dialysis. The patient subsequently was evaluated by Dr. Donovan for dialysis line placement and it was performed. Overnight, the patient's heart rate has remained in atrial fibrillation with attempted ventricular-paced rhythm. REVIEW OF SYSTEMS: Cannot be obtained as the patient is confused. PAST MEDICAL HISTORY: As mentioned above. FAMILY HISTORY: Noncontributory. SOCIAL HISTORY: She lives at home. Does not smoke or drink alcohol. PHYSICAL EXAMINATION: VITAL SIGNS: Show blood pressure of 115/56, pulse 82, respirations 18, and temperature 97.9. HEAD AND NECK: No JVD. LUNGS: Clear. CARDIOVASCULAR: Irregular S1 and S2 with no gallop. ABDOMEN: Soft. EXTREMITIES: No pitting edema. 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 LABORATORY DATA: Labs show white count 12, hemoglobin 13, hematocrit 39, and platelet count is 178,000. Sodium was 161, potassium 4.1, BUN of 79, creatinine 2.7. Hemoglobin A1c was 10. Urine toxicology was negative. ASSESSMENT AND PLAN: 1. Atrial fibrillation. The rate is currently controlled. Continue metoprolol 25 mg b.i.d. as well as anticoagulation with Eliquis 2.5 mg b.i.d. 2. Hypertension, on metoprolol 25 b.i.d.. 3. Hyperlipidemia, on Lipitor. 4. Uncontrolled diabetes, on insulin. Hemoglobin A1c of 10. 5. Acute renal failure. The patient was evaluated by Dr. Jackson. 6. The patient's hyperkalemia was resolved. Currently on D5W and half-NS at 150 mL an hour. Thank you very much for allowing me to participate in the care of this patient. Please do not hesitate to contact me for any questions regarding my evaluation. Vladimir Macias M.D. DR: Fermin JOB#: [id number] CC:
--- NOTE | 2019-07-17 03:30 | NUR ---
NURSE NOTES: Provided dressing change on the sacral. Noted redness and healing wound. Taken wound care photo. Patient tolerated well.
[2019-07-17 04:00] VITALS: BP 117/54
--- NOTE | 2019-07-17 06:02 | NUR ---
NURSE NOTES: Reached Dr. 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 Was not able to reach Dr. Bhatti at this time. Left a message.
[2019-07-17] MEDS: NovoLOG Insulin Flexpen SUBQ SCH ×6 (06:06→21:15)
--- NOTE | 2019-07-17 06:07 | NUR ---
NURSE NOTES: Called Dr. North to inform about the blood sugar reading 94mg/dl in the morning before holding the standing dose of Novolog 4u. Dr. North ordered to hold the dosage at this time. Will carry out the order as given.
[2019-07-17] MEDS: sitaGLIPtin 25mg tab ORAL SCH (06:18)
[2019-07-17] MEDS ORDERED: NovoLOG Insulin Flexpen SUBQ SCH (06:30)
--- NOTE | 2019-07-17 07:20 | General Progress Note ---
Assessment/Plan Problem List: (1) Uncontrolled type 2 diabetes mellitus with hyperosmolar nonketotic hyperglycemia ICD Codes: E11.00 - Type 2 diabetes mellitus with hyperosmolarity without nonketotic hyperglycemic-hyperosmolar coma ([facility]) SNOMED: 00036603, 803122607, 622067731 (2) ARF (acute renal failure) ICD Codes: N17.9 - Acute kidney failure, unspecified SNOMED: 72321596, 988499113, 774719223 (3) Sepsis ICD Codes: A41.9 - Sepsis SNOMED: 65563398 (4) Acute delirium ICD Codes: R41.0 - Disorientation, unspecified SNOMED: 2201456 Assessment/Plan: continue Levemir 12 units daily continue Novolog 4 units ac tid + SSI hypoglycemia protocol in order Subjective ROS Limited/Unobtainable: No Allergies: Coded Allergies: NO KNOWN ALLERGIES (Unverified Allergy, Unknown, 12/09/14) Subjective glucose values improved she is in restraints glucose values improved Item Value Date Time Bedside Blood Glucose 373 mg/dl H 07/16/19 1218 Bedside Blood Glucose 178 mg/dl H 07/16/19 0613 Bedside Blood Glucose 93 mg/dl 07/16/19 0149 Bedside Blood Glucose 94 mg/dl 07/17/19 0606 Bedside Blood Glucose 141 mg/dl H 07/16/19 2029 Bedside Blood Glucose 174 mg/dl H 07/16/19 1734 Objective Last 24 Hour Vital Signs Date Time Temp Pulse Resp B/P (MAP) Pulse Ox O2 Delivery O2 Flow Rate FiO2 07/17/19 04:00 97.5 72 20 117/54 (75) 97 07/17/19 00:33 97.9 71 20 116/51 (72) 99 07/16/19 21:00 69 15 127/61 (83) 100 07/16/19 20:27 71 134/64 07/16/19 20:00 69 07/16/19 20:00 Room Air 07/16/19 20:00 98.0 67 12 134/64 (87) 100 07/16/19 19:00 73 16 124/54 (77) 100 07/16/19 18:00 73 16 131/54 (79) 100 07/16/19 17:00 76 12 149/96 (113) 100 07/16/19 16:19 72 07/16/19 16:00 97.9 82 14 115/56 (75) 98 07/16/19 16:00 Room Air 07/16/19 15:00 75 12 119/56 (77) 100 07/16/19 14:00 76 12 103/42 (62) 100 07/16/19 13:00 86 12 112/53 (72) 100 07/16/19 12:00 98.4 73 12 132/50 (77) 100 07/16/19 12:00 Room Air 07/16/19 11:29 83 07/16/19 11:29 83 07/16/19 11:00 80 13 111/51 (71) 100 07/16/19 10:00 98 13 119/49 (72) 100 07/16/19 10:00 89 12 105/41 (62) 100 07/16/19 09:00 98 13 119/49 (72) 100 07/16/19 08:21 97 07/16/19 08:00 98.2 99 16 113/67 (82) 98 07/16/19 08:00 Room Air Intake and Output 07/16/19 07/17/19 19:00 07:00 Intake Total 2182.5 ml 1575 ml Output Total 300 ml Balance 2182.5 ml 1275 ml Intake Oral 170 ml IV Total 2182.5 ml 1405 ml Output Urine Total 300 ml # Voids 4 1 Laboratory Tests 07/16/19 12:30: Sodium Level 149#H, Potassium Level 4.2, Chloride Level 115H, Carbon Dioxide Level 20L, Anion Gap 14, Blood Urea Nitrogen 80H, Creatinine 2.7H, Estimat Glomerular Filtration Rate 16.7, Glucose Level 430#H, Calcium Level 9.4 07/16/19 19:31: Arterial Blood pH 7.350, Arterial Blood Partial Pressure CO2 33.6L, Arterial Blood Partial Pressure O2 59.2L, Arterial Blood HCO3 18.1L, Arterial Blood Oxygen Saturation 90.1L, Arterial Blood Base Excess -6.6L, Jh Test Positive 07/16/19 23:10: Sodium Level 149H, Potassium Level 3.7, Chloride Level 116H, Carbon Dioxide Level 21, Anion Gap 12, Blood Urea Nitrogen 66H, Creatinine 2.1H, Estimat Glomerular Filtration Rate 22.3, Glucose Level 94#, Calcium Level 9.0 Height (Feet): 5 Height (Inches): 5.00 Weight (Pounds): 136 General Appearance: no apparent distress Neck: normal alignment Cardiovascular: normal rate Respiratory/Chest: lungs clear Abdomen: normal bowel sounds Pelvis: normal external exam Objective Current Medications Medications (Trade) Dose Ordered Sig/Jaylen Route PRN Reason Start Time Stop Time Status Last Admin Dose Admin Acetaminophen (Tylenol) 650 mg Q4H PRN ORAL Mild Pain (Pain Scale 1-3) 07/17/19 00:45 08/14/19 16:44 Albuterol/ Ipratropium (Albuterol/ Ipratropium) 3 ml Q4H PRN HHN Shortness of Breath 07/17/19 00:45 07/20/19 16:44 Apixaban (Eliquis) 2.5 mg BID ORAL 07/17/19 09:00 10/14/19 17:59 Atorvastatin Calcium (Lipitor) 80 mg BEDTIME ORAL 07/17/19 21:00 10/14/19 20:59 Cefepime HCl 1 gm/ Dextrose 55 ml @ 110 mls/hr Q12H IVPB 07/17/19 01:00 07/23/19 12:59 07/17/19 01:07 Chlorhexidine Gluconate (Ailyn-Hex 2%) 1 applic DAILY@2000 TOPIC 07/17/19 20:00 10/14/19 19:59 Dextrose (Dextrose 50%) 25 ml Q30M PRN IV Hypoglycemia 07/16/19 23:15 10/14/19 01:14 Dextrose (Dextrose 50%) 50 ml Q30M PRN IV Hypoglycemia 07/16/19 23:15 10/14/19 01:14 Docusate Sodium (Colace) 100 mg EVERY 12 HOURS ORAL 07/17/19 09:00 08/14/19 20:59 Insulin Aspart (NovoLOG) BEFORE MEALS AND HS SUBQ 07/17/19 06:30 10/14/19 06:29 Insulin Aspart (NovoLOG) 4 units NOVOTIAC SUBQ 07/17/19 06:30 10/14/19 06:29 Insulin Detemir (Levemir) 12 units DAILY SUBQ 07/17/19 09:00 10/14/19 13:44 Metoprolol Tartrate (Lopressor) 25 mg Q12HR ORAL 07/17/19 09:00 10/14/19 20:59 Ondansetron HCl (Zofran) 4 mg Q6H PRN IVP Nausea & Vomiting 07/17/19 22:55 08/14/19 22:54 Sitagliptin Phosphate (Januvia) 25 mg ACBREAKFAST ORAL 07/17/19 06:30 08/15/19 13:44 07/17/19 06:18 Sodium Chloride 1,000 ml @ 150 mls/hr Q6H40M IV 07/16/19 23:00 08/15/19 08:59 07/17/19 05:41 Lucio North MD Jul 17, 2019 07:20
--- NOTE | 2019-07-17 07:34 | NUR ---
HAND-OFF: Report given to NANCY Turner. Plan of care endorsed.
--- NOTE | 2019-07-17 07:35 | NUR ---
NURSE NOTES: Patient awake, alert and orientedx danish speaking. response to by name. Breathing unlabored on room air without distress. No s/s or complaints of pain or discomfort noted at this time. IV noted on right hand and forearm intact and patent. IVF infusing well. permacath inplaced dry and intact. On bilateral soft wrist restraint for safety precaution. On purewick for incontinence care. HOB elevated. Bed placed at the lowest with alarm, brake, and siderails up for safety. Call light placed within reach. Will continue to monitor.
[2019-07-17 08:00] VITALS: BP 145/65
[2019-07-17] MEDS: Docusate 100mg cap ORAL SCH ×2 (08:59→21:17)
[2019-07-17] MEDS: Eliquis 2.5mg tablet ORAL SCH ×2 (08:59→17:00)
[2019-07-17] MEDS: Levemir Flexpen SUBQ SCH (09:07)
--- NOTE | 2019-07-17 10:16 | General Progress Note ---
Assessment/Plan Assessment/Plan: 88 year old woman with history of afib on DOAC, CVA, dementia, hypertension, hyperlipidemia, diabetes who presented to ED with: #Uncontrolled NIDDM, HONK #TREVOR #Severe hyperkalemia with EKG changes -Cont. in-patient medical care -AG closed, d/c Insulin ggt -transfer to tele -07/14: S/p right femoral rainer cath placed by Gen Sx -Nephrology: HD per nephro -Endocrine consulted- levamir 12 U, Novolog 4 U qAC, ISS -hold metformin -hold losartan #Acute metabolic encephalopathy #Dementia #history of CVA -hold Aricept and Namenda -Treat underlying acute medical problems -Supportive care -Aspiration and fall precautions #Atrial fibrillation #HTN #PPM -Cardio, Dr. Macias: MTP 25 BID, Eliquis 2.5 BID DVT PPx: Eliquis 2.5 BID I spent 35 minutes on this patient's case, >50% time spent on coordination fo care, pt counseling. Subjective Allergies: Coded Allergies: NO KNOWN ALLERGIES (Unverified Allergy, Unknown, 12/09/14) Subjective F/u for DKA, TREVOR, UTI, afib. Pt confused, otherwise awake. Objective Last 24 Hour Vital Signs Date Time Temp Pulse Resp B/P (MAP) Pulse Ox O2 Delivery O2 Flow Rate FiO2 07/17/19 08:59 87 145/65 07/17/19 08:00 98.6 87 19 145/65 (91) 98 07/17/19 04:00 97.5 72 20 117/54 (75) 97 07/17/19 00:33 97.9 71 20 116/51 (72) 99 07/16/19 21:00 69 15 127/61 (83) 100 07/16/19 20:27 71 134/64 07/16/19 20:00 69 07/16/19 20:00 Room Air 07/16/19 20:00 98.0 67 12 134/64 (87) 100 07/16/19 19:00 73 16 124/54 (77) 100 07/16/19 18:00 73 16 131/54 (79) 100 07/16/19 17:00 76 12 149/96 (113) 100 07/16/19 16:19 72 07/16/19 16:00 97.9 82 14 115/56 (75) 98 07/16/19 16:00 Room Air 07/16/19 15:00 75 12 119/56 (77) 100 07/16/19 14:00 76 12 103/42 (62) 100 07/16/19 13:00 86 12 112/53 (72) 100 07/16/19 12:00 98.4 73 12 132/50 (77) 100 07/16/19 12:00 Room Air 07/16/19 11:29 83 07/16/19 11:29 83 07/16/19 11:00 80 13 111/51 (71) 100 Intake and Output 07/16/19 07/17/19 19:00 07:00 Intake Total 2182.5 ml 1575 ml Output Total 300 ml Balance 2182.5 ml 1275 ml Intake Oral 170 ml IV Total 2182.5 ml 1405 ml Output Urine Total 300 ml # Voids 4 1 Laboratory Tests 07/16/19 12:30: Sodium Level 149#H, Potassium Level 4.2, Chloride Level 115H, Carbon Dioxide Level 20L, Anion Gap 14, Blood Urea Nitrogen 80H, Creatinine 2.7H, Estimat Glomerular Filtration Rate 16.7, Glucose Level 430#H, Calcium Level 9.4 07/16/19 19:31: Arterial Blood pH 7.350, Arterial Blood Partial Pressure CO2 33.6L, Arterial Blood Partial Pressure O2 59.2L, Arterial Blood HCO3 18.1L, Arterial Blood Oxygen Saturation 90.1L, Arterial Blood Base Excess -6.6L, Jh Test Positive 07/16/19 23:10: Sodium Level 149H, Potassium Level 3.7, Chloride Level 116H, Carbon Dioxide Level 21, Anion Gap 12, Blood Urea Nitrogen 66H, Creatinine 2.1H, Estimat Glomerular Filtration Rate 22.3, Glucose Level 94#, Calcium Level 9.0 Height (Feet): 5 Height (Inches): 5.00 Weight (Pounds): 136 Objective General Appearance: awake, in NAD, remains confused Neck: supple, normal inspection Respiratory/Chest: lungs clear, normal breath sounds, no respiratory distress, no accessory muscle use Cardiovascular/Chest: normal rate, regular rhythm Abdomen: non tender, soft Extremities: non-tender, normal inspection, right femoral rainer cath c/d/Ester Guzmán M.D. Jul 17, 2019 10:16
--- NOTE | 2019-07-17 10:42 | Pulmonology Progress Note ---
Assessment/Plan Assessment/Plan IMPRESSION: 1. Hyperosmolar state. 2. Renal failure. 3. Hypernatremia. 4. Atrial fibrillation. 5. Hypertension. DISCUSSION: Continue hypotonic fluids and diabetes control. I will follow carefully. CXR shows enlarged cardiac silhouette and pacemaker Butch Aguilar M.D. Subjective Interval Events: Transferred to 4th floor; doing better Constitutional: Reports: no symptoms HEENT: Repors: no symptoms Respiratory: Reports: no symptoms Cardiovascular: Reports: no symptoms Gastrointestinal/Abdominal: Reports: no symptoms Allergies: Coded Allergies: NO KNOWN ALLERGIES (Unverified Allergy, Unknown, 12/09/14) Objective Last 24 Hour Vital Signs Date Time Temp Pulse Resp B/P (MAP) Pulse Ox O2 Delivery O2 Flow Rate FiO2 07/17/19 08:59 87 145/65 07/17/19 08:00 98.6 87 19 145/65 (91) 98 07/17/19 04:00 97.5 72 20 117/54 (75) 97 07/17/19 00:33 97.9 71 20 116/51 (72) 99 07/16/19 21:00 69 15 127/61 (83) 100 07/16/19 20:27 71 134/64 07/16/19 20:00 69 07/16/19 20:00 Room Air 07/16/19 20:00 98.0 67 12 134/64 (87) 100 07/16/19 19:00 73 16 124/54 (77) 100 07/16/19 18:00 73 16 131/54 (79) 100 07/16/19 17:00 76 12 149/96 (113) 100 07/16/19 16:19 72 07/16/19 16:00 97.9 82 14 115/56 (75) 98 07/16/19 16:00 Room Air 07/16/19 15:00 75 12 119/56 (77) 100 07/16/19 14:00 76 12 103/42 (62) 100 07/16/19 13:00 86 12 112/53 (72) 100 07/16/19 12:00 98.4 73 12 132/50 (77) 100 07/16/19 12:00 Room Air 07/16/19 11:29 83 07/16/19 11:29 83 07/16/19 11:00 80 13 111/51 (71) 100 Intake and Output 07/16/19 07/17/19 19:00 07:00 Intake Total 2182.5 ml 1575 ml Output Total 300 ml Balance 2182.5 ml 1275 ml Intake Oral 170 ml IV Total 2182.5 ml 1405 ml Output Urine Total 300 ml # Voids 4 1 General Appearance: no acute distress HEENT: normocephalic Respiratory/Chest: chest wall non-tender Cardiovascular: normal peripheral pulses Microbiology Date/Time Source Procedure Growth Status 07/16/19 21:20 Nasal Nares MRSA Culture - Final Staphylococcus Aureus - Mrsa Complete 07/15/19 15:15 Urine,Clean Catch Urine Culture - Final Klebsiella Pneumoniae Complete 07/16/19 21:20 Rectum Received Laboratory Tests 07/16/19 12:30: Sodium Level 149#H, Potassium Level 4.2, Chloride Level 115H, Carbon Dioxide Level 20L, Anion Gap 14, Blood Urea Nitrogen 80H, Creatinine 2.7H, Estimat Glomerular Filtration Rate 16.7, Glucose Level 430#H, Calcium Level 9.4 07/16/19 19:31: Arterial Blood pH 7.350, Arterial Blood Partial Pressure CO2 33.6L, Arterial Blood Partial Pressure O2 59.2L, Arterial Blood HCO3 18.1L, Arterial Blood Oxygen Saturation 90.1L, Arterial Blood Base Excess -6.6L, Jh Test Positive 07/16/19 23:10: Sodium Level 149H, Potassium Level 3.7, Chloride Level 116H, Carbon Dioxide Level 21, Anion Gap 12, Blood Urea Nitrogen 66H, Creatinine 2.1H, Estimat Glomerular Filtration Rate 22.3, Glucose Level 94#, Calcium Level 9.0 Current Medications Medications (Trade) Dose Ordered Sig/Jaylen Route PRN Reason Start Time Stop Time Status Last Admin Dose Admin Acetaminophen (Tylenol) 650 mg Q4H PRN ORAL Mild Pain (Pain Scale 1-3) 07/17/19 00:45 08/14/19 16:44 Albuterol/ Ipratropium (Albuterol/ Ipratropium) 3 ml Q4H PRN HHN Shortness of Breath 07/17/19 00:45 07/20/19 16:44 Apixaban (Eliquis) 2.5 mg BID ORAL 07/17/19 09:00 10/14/19 17:59 07/17/19 08:59 Atorvastatin Calcium (Lipitor) 80 mg BEDTIME ORAL 07/17/19 21:00 10/14/19 20:59 Cefepime HCl 1 gm/ Dextrose 55 ml @ 110 mls/hr Q12H IVPB 07/17/19 01:00 07/23/19 12:59 07/17/19 01:07 Chlorhexidine Gluconate (Ailyn-Hex 2%) 1 applic DAILY@2000 TOPIC 07/17/19 20:00 10/14/19 19:59 Dextrose (Dextrose 50%) 25 ml Q30M PRN IV Hypoglycemia 07/16/19 23:15 10/14/19 01:14 Dextrose (Dextrose 50%) 50 ml Q30M PRN IV Hypoglycemia 07/16/19 23:15 10/14/19 01:14 Docusate Sodium (Colace) 100 mg EVERY 12 HOURS ORAL 07/17/19 09:00 08/14/19 20:59 07/17/19 08:59 Insulin Aspart (NovoLOG) BEFORE MEALS AND HS SUBQ 07/17/19 06:30 10/14/19 06:29 Insulin Aspart (NovoLOG) 4 units NOVOTIAC SUBQ 07/17/19 11:50 10/14/19 06:29 Insulin Detemir (Levemir) 12 units DAILY SUBQ 07/17/19 09:00 10/14/19 13:44 07/17/19 09:07 Metoprolol Tartrate (Lopressor) 25 mg Q12HR ORAL 07/17/19 09:00 10/14/19 20:59 07/17/19 08:59 Ondansetron HCl (Zofran) 4 mg Q6H PRN IVP Nausea & Vomiting 07/17/19 22:55 08/14/19 22:54 Sitagliptin Phosphate (Januvia) 25 mg ACBREAKFAST ORAL 07/17/19 06:30 08/15/19 13:44 07/17/19 06:18 Sodium Chloride 1,000 ml @ 150 mls/hr Q6H40M IV 07/16/19 23:00 08/15/19 08:59 07/17/19 05:41 Butch Aguilar MD Jul 17, 2019 10:42
--- NOTE | 2019-07-17 11:10 | NUR ---
RD ASSESSMENT & RECOMMENDATIONS SEE CARE ACTIVITY FOR COMPLETE ASSESSMENT DAILY ESTIMATED NEEDS: Needs based on DM, wound 53kg 25-35 kcals/kg 8577-0934 total kcals 1.25-1.5 g protein/kg 66-80 g total protein 25-30ml/kcal mL/kg 2332-5489 total fluid mLs NUTRITION DIAGNOSIS: Altered nutrition related lab values r/t diabetes as evidenced by A1C 10, BG >1000 on adm. CURRENT DIET: CCHO MED finely chopped PO DIET RECOMMENDATIONS: With poor po intake, rec Liberalized Regular diet, texture per [employer] ADDITIONAL RECOMMENDATIONS: 1) Add Glucerna TID w/ meals 2) Wound care: if tolerated, rec LINDA Fruit punch BID + vit C 250mg daily 3) Obtain a calibrated bed scale wt 4) Monitor lytes, need for renal diet and or supplement 5) W/ continued poor po intake rec D5 to prevent hypoglycemia
[2019-07-17 12:00] VITALS: BP 138/72
--- NOTE | 2019-07-17 13:29 | Nephrology Progress Note ---
Assessment/Plan Plan #Acute renal failure - susept ATN- likely with baseline CKD? #Hyperkalemia- resolved #hypernatremia #severe Hyperglycemia- HHS #AMS #afib on DOAC #CVA, #dementia #hypertension # hyperlipidemia #diabetes - switch to 1/2NS at 75cc/hr - monitor BMP, mag, phos, calcium - monitor BG - endocrine eval - monitor blood gas - continue cefepime - continue statin - MTP 25 BID - Eliquis 2.5 BID I spent 35 minutes on this patient's case, >50% time spent on coordination fo care, pt counseling. Subjective ROS Limited/Unobtainable: Yes Subjective Breathing stable on room air this morning Cr downtrending potassium ok Objective Objective Last 24 Hour Vital Signs Date Time Temp Pulse Resp B/P (MAP) Pulse Ox O2 Delivery O2 Flow Rate FiO2 07/17/19 12:00 98.0 73 18 138/72 (94) 98 07/17/19 08:59 87 145/65 07/17/19 08:00 98.6 87 19 145/65 (91) 98 07/17/19 04:00 97.5 72 20 117/54 (75) 97 07/17/19 00:33 97.9 71 20 116/51 (72) 99 07/16/19 21:00 69 15 127/61 (83) 100 07/16/19 20:27 71 134/64 07/16/19 20:00 69 07/16/19 20:00 Room Air 07/16/19 20:00 98.0 67 12 134/64 (87) 100 07/16/19 19:00 73 16 124/54 (77) 100 07/16/19 18:00 73 16 131/54 (79) 100 07/16/19 17:00 76 12 149/96 (113) 100 07/16/19 16:19 72 07/16/19 16:00 97.9 82 14 115/56 (75) 98 07/16/19 16:00 Room Air 07/16/19 15:00 75 12 119/56 (77) 100 07/16/19 14:00 76 12 103/42 (62) 100 Intake and Output 07/16/19 07/17/19 19:00 07:00 Intake Total 2182.5 ml 1575 ml Output Total 300 ml Balance 2182.5 ml 1275 ml Intake Oral 170 ml IV Total 2182.5 ml 1405 ml Output Urine Total 300 ml # Voids 4 1 Laboratory Tests 07/16/19 19:31: Arterial Blood pH 7.350, Arterial Blood Partial Pressure CO2 33.6L, Arterial Blood Partial Pressure O2 59.2L, Arterial Blood HCO3 18.1L, Arterial Blood Oxygen Saturation 90.1L, Arterial Blood Base Excess -6.6L, Jh Test Positive 07/16/19 23:10: Sodium Level 149H, Potassium Level 3.7, Chloride Level 116H, Carbon Dioxide Level 21, Anion Gap 12, Blood Urea Nitrogen 66H, Creatinine 2.1H, Estimat Glomerular Filtration Rate 22.3, Glucose Level 94#, Calcium Level 9.0 Height (Feet): 5 Height (Inches): 5.00 Weight (Pounds): 136 Vikki Jackson M.D. Jul 17, 2019 13:29
[2019-07-17] MEDS ORDERED: NS 275ml ONE (14:24)
[2019-07-17] MEDS ORDERED: 1/2 NS 1000ml IV ONE (14:24)
--- NOTE | 2019-07-17 15:10 | Surgery Progress Note ---
Surgery Progress Note Subjective Procedure Performed Right femoral temporary hemodialysis catheter insertion Additional Comments improved downgraded will plan to remove HD cath tomorrow mental status much improved she is able to hold conversation in persian with nurse Objective Last 24 Hour Vital Signs Date Time Temp Pulse Resp B/P (MAP) Pulse Ox O2 Delivery O2 Flow Rate FiO2 07/17/19 12:00 98.0 73 18 138/72 (94) 98 07/17/19 09:00 Room Air 07/17/19 08:59 87 145/65 07/17/19 08:00 98.6 87 19 145/65 (91) 98 07/17/19 04:00 97.5 72 20 117/54 (75) 97 07/17/19 00:33 97.9 71 20 116/51 (72) 99 07/16/19 21:00 69 15 127/61 (83) 100 07/16/19 20:27 71 134/64 07/16/19 20:00 69 07/16/19 20:00 Room Air 07/16/19 20:00 98.0 67 12 134/64 (87) 100 07/16/19 19:00 73 16 124/54 (77) 100 07/16/19 18:00 73 16 131/54 (79) 100 07/16/19 17:00 76 12 149/96 (113) 100 07/16/19 16:19 72 07/16/19 16:00 97.9 82 14 115/56 (75) 98 07/16/19 16:00 Room Air I&O Intake and Output 07/16/19 07/17/19 19:00 07:00 Intake Total 2182.5 ml 1575 ml Output Total 300 ml Balance 2182.5 ml 1275 ml Intake Oral 170 ml IV Total 2182.5 ml 1405 ml Output Urine Total 300 ml # Voids 4 1 Dressing: dry Wound: dry Cardiovascular: RSR Respiratory: clear, decreased breath sounds Abdomen: soft, non-tender, present bowel sounds Extremities: no edema, no tenderness, no cyanosis Laboratory Tests Test 07/16/19 19:31 07/16/19 23:10 Arterial Blood pH 7.350 (7.350-7.450) Arterial Blood Partial Pressure CO2 33.6 mmHg (35.0-45.0) L Arterial Blood Partial Pressure O2 59.2 mmHg (75.0-100.0) L Arterial Blood HCO3 18.1 mmol/L (22.0-26.0) L Arterial Blood Oxygen Saturation 90.1 % (95-100) L Arterial Blood Base Excess -6.6 (-2-2) L Jh Test Positive Sodium Level 149 MMOL/L (136-145) H Potassium Level 3.7 MMOL/L (3.5-5.1) Chloride Level 116 MMOL/L (98-107) H Carbon Dioxide Level 21 MMOL/L (21-32) Anion Gap 12 mmol/L (5-15) Blood Urea Nitrogen 66 mg/dL (7-18) H Creatinine 2.1 MG/DL (0.55-1.30) H Estimat Glomerular Filtration Rate 22.3 mL/min (>60) Glucose Level 94 MG/DL (74-106) # Calcium Level 9.0 MG/DL (8.5-10.1) Plan Problems: (1) Elevated troponin (2) Elevated LFTs (3) Hyperkalemia Assessment & Plan: Calcium Dextrose insulin as needed Urgent hemodialysis discussed with traveling missionary labs improved discussed with nephro will monitor hold line (4) ARF (acute renal failure) (5) Encephalopathy acute (6) Acute delirium (7) Sepsis Assessment & Plan: Hyperglycemia, hyperkalemia, renal insufficiency. EKG with peaked T waves abnormal Emergent dialysis indicated recommended Complete examination performed chart reviewed discussion had with patient's family regards to history discussion had with primary care physician traveling missionary Emergency hemodialysis catheter insertion temporary indicated recommended Please see procedure note We will follow with recommendations thank you for let me participate patient's care (8) UTI (urinary tract infection) (9) Altered level of consciousness (10) Uncontrolled type 2 diabetes mellitus with hyperosmolar nonketotic hyperglycemia Gilberto Donovan Jul 17, 2019 15:10
[2019-07-17 16:07] VITALS: BP 132/70
--- NOTE | 2019-07-17 19:17 | NUR ---
HAND-OFF: Report given to Minsu.
--- NOTE | 2019-07-17 19:45 | NUR ---
NURSE NOTES: Patient awake and verbally responsive in Vietnamese but incoherent. Breathing unlabored on room air without distress. Denies pain or discomfort. IV on right hand intact and patent running 1/2 NS @ 75mls/hr. On bilateral soft wrist restraint for patient safety. Bilateral pulses present and skin intact. Bed placed at the lowest with HOB and bilateral heels elevated. Bed alarm, brake, and siderails on for patient safety. Call light placed within reach. Will continue to monitor and provide care as ordered.
--- NOTE | 2019-07-17 19:58 | Infectious Diseases Prog Note ---
Assessment/Plan Assessment/Plan Full consult dictated: A) 1) klebsiella uti, possible sepsis, leukocytosis, mrsa colonization 2) hypernatremia 3) allergies - nkda P) 1) cefepime - day # 3 abx 2) f/u on labs and chest x-ray 3) will f/u Subjective Allergies: Coded Allergies: NO KNOWN ALLERGIES (Unverified Allergy, Unknown, 12/09/14) Objective Vital Signs Last 24 Hour Vital Signs Date Time Temp Pulse Resp B/P (MAP) Pulse Ox O2 Delivery O2 Flow Rate FiO2 07/17/19 16:07 98.1 70 18 132/70 (90) 96 07/17/19 12:00 98.0 73 18 138/72 (94) 98 07/17/19 09:00 Room Air 07/17/19 08:59 87 145/65 07/17/19 08:00 98.6 87 19 145/65 (91) 98 07/17/19 04:00 97.5 72 20 117/54 (75) 97 07/17/19 00:33 97.9 71 20 116/51 (72) 99 07/16/19 21:00 69 15 127/61 (83) 100 07/16/19 20:27 71 134/64 07/16/19 20:00 69 07/16/19 20:00 Room Air 07/16/19 20:00 98.0 67 12 134/64 (87) 100 Height (Feet): 5 Height (Inches): 5.00 Weight (Pounds): 136 Microbiology Date/Time Source Procedure Growth Status 07/16/19 21:20 Nasal Nares MRSA Culture - Final Staphylococcus Aureus - Mrsa Complete 07/15/19 15:15 Urine,Clean Catch Urine Culture - Final Klebsiella Pneumoniae Complete 07/16/19 21:20 Rectum Received Laboratory Tests Test 07/16/19 23:10 Sodium Level 149 MMOL/L (136-145) H Potassium Level 3.7 MMOL/L (3.5-5.1) Chloride Level 116 MMOL/L (98-107) H Carbon Dioxide Level 21 MMOL/L (21-32) Anion Gap 12 mmol/L (5-15) Blood Urea Nitrogen 66 mg/dL (7-18) H Creatinine 2.1 MG/DL (0.55-1.30) H Estimat Glomerular Filtration Rate 22.3 mL/min (>60) Glucose Level 94 MG/DL (74-106) # Calcium Level 9.0 MG/DL (8.5-10.1) Current Medications Medications (Trade) Dose Ordered Sig/Jaylen Route PRN Reason Start Time Stop Time Status Last Admin Dose Admin Acetaminophen (Tylenol) 650 mg Q4H PRN ORAL Mild Pain (Pain Scale 1-3) 07/17/19 00:45 08/14/19 16:44 Albuterol/ Ipratropium (Albuterol/ Ipratropium) 3 ml Q4H PRN HHN Shortness of Breath 07/17/19 00:45 07/20/19 16:44 Apixaban (Eliquis) 2.5 mg BID ORAL 07/17/19 09:00 10/14/19 17:59 07/17/19 17:00 Atorvastatin Calcium (Lipitor) 80 mg BEDTIME ORAL 07/17/19 21:00 10/14/19 20:59 Cefepime HCl 1 gm/ Dextrose 55 ml @ 110 mls/hr Q12H IVPB 07/17/19 01:00 07/23/19 12:59 07/17/19 14:47 Chlorhexidine Gluconate (Ailyn-Hex 2%) 1 applic DAILY@2000 TOPIC 07/17/19 20:00 10/14/19 19:59 Dextrose (Dextrose 50%) 25 ml Q30M PRN IV Hypoglycemia 07/16/19 23:15 10/14/19 01:14 Dextrose (Dextrose 50%) 50 ml Q30M PRN IV Hypoglycemia 07/16/19 23:15 10/14/19 01:14 Docusate Sodium (Colace) 100 mg EVERY 12 HOURS ORAL 07/17/19 09:00 08/14/19 20:59 07/17/19 08:59 Insulin Aspart (NovoLOG) BEFORE MEALS AND HS SUBQ 07/17/19 06:30 10/14/19 06:29 07/17/19 17:02 Insulin Aspart (NovoLOG) 4 units NOVOTIAC SUBQ 07/17/19 11:50 10/14/19 06:29 07/17/19 17:03 Insulin Detemir (Levemir) 12 units DAILY SUBQ 07/17/19 09:00 10/14/19 13:44 07/17/19 09:07 Metoprolol Tartrate (Lopressor) 25 mg Q12HR ORAL 07/17/19 09:00 10/14/19 20:59 07/17/19 08:59 Ondansetron HCl (Zofran) 4 mg Q6H PRN IVP Nausea & Vomiting 07/17/19 22:55 08/14/19 22:54 Sitagliptin Phosphate (Januvia) 25 mg ACBREAKFAST ORAL 07/17/19 06:30 08/15/19 13:44 07/17/19 06:18 Sodium Chloride 1,000 ml @ 75 mls/hr [id number] IV 07/17/19 19:15 08/16/19 19:14 07/17/19 19:25 Maryanne Bhatti MD Jul 17, 2019 19:58
[2019-07-17 20:00] VITALS: BP 112/69
[2019-07-17] MEDS: Dyna-Hex 2% Top Sol 2oz TOPIC SCH (20:15)
--- NOTE | 2019-07-17 20:30 | NUR ---
NURSE NOTES: provided incontinence care and placed a new purewick. Will continue to monitor.
--- NOTE | 2019-07-17 20:45 | Neurology Progress Note ---
Interim History Interim History Interim History more alert, still confused, plegic on right side Objective Physical Exam Last Vital Signs Date Time Temp Pulse Resp B/P (MAP) Pulse Ox O2 Delivery O2 Flow Rate FiO2 07/17/19 20:00 98.4 87 20 112/69 (83) 99 07/17/19 09:00 Room Air Laboratory Tests Test 07/16/19 23:10 Sodium Level 149 MMOL/L (136-145) H Potassium Level 3.7 MMOL/L (3.5-5.1) Chloride Level 116 MMOL/L (98-107) H Carbon Dioxide Level 21 MMOL/L (21-32) Anion Gap 12 mmol/L (5-15) Blood Urea Nitrogen 66 mg/dL (7-18) H Creatinine 2.1 MG/DL (0.55-1.30) H Estimat Glomerular Filtration Rate 22.3 mL/min (>60) Glucose Level 94 MG/DL (74-106) # Calcium Level 9.0 MG/DL (8.5-10.1) Christopher Darden MD Jul 17, 2019 20:45
[2019-07-17] MEDS: Atorvastatin 80mg tab ORAL SCH (21:17)
--- NOTE | 2019-07-17 21:44 | Consultation ---
DATE OF CONSULTATION: 07/17/2019 INFECTIOUS DISEASES CONSULTATION CONSULTING PHYSICIAN: Maryanne Bhatti MD. ATTENDING PHYSICIAN: John Jerome MD. REFERRING PHYSICIAN: Diamond Villegas D.O REASON FOR CONSULTATION: Klebsiella UTI, sepsis, elevated white count, MRSA colonization. CHIEF COMPLAINT: The patient's chief complaint coming into the hospital is hypernatremia and hyperglycemia. HISTORY OF PRESENT ILLNESS: The patient is an 88-year-old female who is a very poor historian. The patient presented to [facility] with altered mental status, hypernatremia, sodium as high as 161. The patient also came in with hyperglycemia. The patient's blood sugar as high as 430. The patient's workup shows that she has a Klebsiella pneumonia, UTI that was fairly sensitive. Chest x-ray with what looks like edema. We will get followup chest x-ray. The patient is currently on cefepime, day #3 appropriate antibiotics for this patient for Klebsiella UTI with sepsis, altered mental status, SIRS criteria. MAR was noted. Orders were noted. Notes were reviewed. REVIEW OF SYSTEMS: The patient is not a very good historian. She does not have a Negro or central line. She has generalized weakness, responsive. She currently no fevers.HEAD AND NECK: No head pain or neck pain. CARDIAC: No chest pain. GASTROINTESTINAL: No nausea, vomiting, or diarrhea. GENITOURINARY: No Negro. PULMONARY: No significant shortness of breath, cough, congestion. SKIN: No rash. EXTREMITIES: No pain. NEUROLOGIC: No seizures. Generalized fatigue. No focal weakness. No rash or seizures. PAST MEDICAL HISTORY: The patient has a past medical history of the following. The patient has a past medical history of atrial fibrillation, history of DOAC, CVA, dementia, hypertension, hyperlipidemia, diabetes, encephalopathy, renal failure, anemia. ALLERGIES: No known drug allergies. No antibiotic allergies. SOCIAL HISTORY: Negative for smoking, alcohol, or drug abuse. FAMILY HISTORY: Noncontributory. Negative for exposure to tuberculosis or cancer. MEDICATIONS: Upon reviewing the MAR, she is on following medications. She is on Zofran, atorvastatin, chlorhexidine, IV fluids, insulin, apixaban, Colace, Levemir, Lopressor, NovoLog insulin, acetaminophen, albuterol, metoprolol, cefepime, insulin. She was given ceftriaxone earlier in the admission on the 07/15/2019. Outside medications were noted and reconciliated. PHYSICAL EXAMINATION: VITAL SIGNS: Temperature 98.1, pulse rate 70, respiratory rate 18, blood pressure 132/70, O2 saturation 96%. GENERAL: She is alert and responsive, seems to be confused. HEAD AND NECK: Oral exam, no thrush. Eye exam, no icterus. Normocephalic. Neck is supple. HEART: Regular. No gallop or murmur. ABDOMEN: Soft. Positive bowel sounds. Nontender. LUNGS: Few bilateral rhonchi. No definite rales. Mostly clear bilaterally. No respiratory distress. SKIN: No rash. MUSCULOSKELETAL: No effusions. Legs are without cellulitis. PERIPHERAL VASCULAR: No cyanosis or gangrene. GENITOURINARY: No Negro. LINE SITES: Without phlebitis. NEUROLOGIC: Generalized weakness and responsive. LABORATORY AND DIAGNOSTIC DATA: Sodium 161, creatinine 2.1. White count 12.0, hemoglobin 13.7. UA positive nitrites, many bacteria. Urine culture, Klebsiella pneumoniae. MRSA screen is positive for MRSA. Imaging studies, the patient has asymmetric haziness in the left lung, cannot exclude edema. ASSESSMENT AND PLAN: 1. The patient has Klebsiella urinary tract infection, SIRS criteria. Heart rate has been as high as 117. White count 12.0, altered mental status. She has complicated Klebsiella UTI with sepsis and leukocytosis. Continue cefepime, day #3 of antibiotics. Check followup chest x-ray The patient is colonized with MRSA. Continue cefepime for complicated Klebsiella UTI. Check followup labs. 2. Acute renal failure, possible hemodialysis. 3. Hypernatremia. 4. Renal follow-up. 5. MRSA colonization. 6. Klebsiella UTI with sepsis. 7. DOAC. 8. Atrial fibrillation. 9. CVA. 10. Dementia. 11. Hypertension. 12. Hyperlipidemia. 13. Diabetes. 14. Encephalopathy. 15. Continue treatment per primary consult. 16. No known drug allergies. 17. Social history is negative. 18. Family history is noncontributory. 19. MAR was noted. 20. Case discussed with RN. 21. The patient has history of what looks like wounds, but they look fairly stable, looks like a small wound in the sacrococcyx area that is not infected. Maryanne Bhatti M.D. DR: Gurmeet JOB#: [id number] CC: [facility]
[2019-07-18] VITALS: BP 141/71
[2019-07-18] MEDS: Cefepime HCl 1 GM in D5W 55 ML IVPB SCH ×2 (00:46→14:15)
[2019-07-18 04:00] VITALS: BP 150/94
[2019-07-18] MEDS: sitaGLIPtin 25mg tab ORAL SCH (06:10)
[2019-07-18] MEDS: NovoLOG Insulin Flexpen SUBQ SCH ×7 (06:26→20:21)
--- NOTE | 2019-07-18 06:33 | NUR ---
NURSE NOTES: Called Dr. Bhatti to inform about positive VRE recturm result. Was not able to reach Dr. Bhatti at this time. Left a message.
[2019-07-18 07:02] LABS: ANION GAP 14 mmol/L (5-15); BLOOD UREA NITROGEN 37 mg/dL (7-18); CALCIUM 8.5 MG/DL (8.5-10.1); CARBON DIOXIDE 19 MMOL/L (21-32); CHLORIDE 115 MMOL/L (98-107); CREATININE 1.8 MG/DL (0.55-1.30); POTASSIUM 3.4 MMOL/L (3.5-5.1); SODIUM 147 MMOL/L (136-145)
[2019-07-18 07:17] LABS: HEMATOCRIT 31.4 % (37.0-47.0); HEMOGLOBIN 11.7 G/DL (12.0-16.0); LYMPHOCYTES % (AUTO) 17.8 % (20.0-45.0); MEAN CORPUSCULAR VOLUME 90 FL (80-99); MONOCYTES % (AUTO) 5.9 % (1.0-10.0); NEUTROPHILS % (AUTO) 73.3 % (45.0-75.0); PLATELET COUNT 115 K/UL (150-450); RED BLOOD COUNT 3.49 M/UL (4.20-5.40); RED CELL DISTRIBUTION WIDTH 13.1 % (11.6-14.8); WHITE BLOOD COUNT 7.2 K/UL (4.8-10.8)
--- NOTE | 2019-07-18 07:52 | NUR ---
NURSE NOTES: Report received from Minsu RN. Patient seen on rounds, confused, disoriented and restless. Not in acute distress, no outward sx of pain. PIV on right hand patent and intact infusing IVF as ordered. Bilateral soft wrist restraints on for safety, good circulation noted. Bed is low and locked, siderails up x3, alarms on zone 1, will do frequent visual rounds.
--- NOTE | 2019-07-18 07:52 | NUR ---
HAND-OFF: Report given to KAREN Holman. Plan of care endorsed.
[2019-07-18 08:00] VITALS: BP_SYST 150; BP_SYST 165; BP_DIAS 71; BP_DIAS 94
[2019-07-18] MEDS: Docusate 100mg cap ORAL SCH ×2 (08:58→20:22)
[2019-07-18] MEDS: Eliquis 2.5mg tablet ORAL SCH ×2 (09:00→17:24)
[2019-07-18] MEDS: Levemir Flexpen SUBQ SCH (09:02)
--- NOTE | 2019-07-18 09:47 | Nephrology Progress Note ---
Assessment/Plan Plan #Acute renal failure - susept ATN- likely with baseline CKD? #Hyperkalemia- resolved #hypernatremia #severe Hyperglycemia- HHS #AMS #afib on DOAC #CVA, #dementia #hypertension # hyperlipidemia #diabetes - DC IVF - monitor BMP, mag, phos, calcium - replete K - monitor BG - endocrine eval - continue cefepime - continue statin - increase MTP to 50 BID - Eliquis 2.5 BID I spent 35 minutes on this patient's case, >50% time spent on coordination fo care, pt counseling. Subjective ROS Limited/Unobtainable: Yes Subjective Breathing stable on room air this morning Cr downtrending potassium lo repleted sodium improving BP uptrending Objective Objective Last 24 Hour Vital Signs Date Time Temp Pulse Resp B/P (MAP) Pulse Ox O2 Delivery O2 Flow Rate FiO2 07/18/19 08:58 95 165/71 07/18/19 08:00 98.3 95 18 165/71 (102) 97 07/18/19 07:45 84 20 96 Room Air 21 07/18/19 04:00 98.1 81 20 150/94 (112) 97 07/18/19 00:00 97.7 82 18 141/71 (94) 97 07/17/19 21:17 90 166/88 07/17/19 21:00 Room Air 07/17/19 20:00 98.4 87 20 112/69 (83) 99 07/17/19 16:07 98.1 70 18 132/70 (90) 96 07/17/19 12:00 98.0 73 18 138/72 (94) 98 Intake and Output 07/17/19 07/18/19 19:00 07:00 Intake Total 720 ml 580 ml Output Total 400 ml Balance 720 ml 180 ml Intake Oral 120 ml IV Total 600 ml 580 ml Output Urine Total 400 ml # Voids 1 Laboratory Tests 07/18/19 05:50: White Blood Count 7.2, Red Blood Count 3.49L, Hemoglobin 11.7L, Hematocrit 31.4L , Mean Corpuscular Volume 90, Mean Corpuscular Hemoglobin 33.4H, Mean Corpuscular Hemoglobin Concent 37.1H, Red Cell Distribution Width 13.1, Platelet Count 115L, Mean Platelet Volume 8.6, Neutrophils (%) (Auto) 73.3, Lymphocytes (%) (Auto) 17.8L, Monocytes (%) (Auto) 5.9, Eosinophils (%) (Auto) 2.0, Basophils (%) (Auto) 1.0, Sodium Level 147H, Potassium Level 3.4L, Chloride Level 115H, Carbon Dioxide Level 19L, Anion Gap 14, Blood Urea Nitrogen 37H, Creatinine 1.8H, Estimat Glomerular Filtration Rate 26.7, Glucose Level 123H, Calcium Level 8.5 Height (Feet): 5 Height (Inches): 5.00 Weight (Pounds): 135 Vikki Jackson M.D. Jul 18, 2019 09:47
--- NOTE | 2019-07-18 10:00 | NUR ---
NURSE NOTES: Dr. Villegas and Dr. Macias saw patient on rounds. Notified them of latest platelet results 115k. No new orders at this time.
--- NOTE | 2019-07-18 10:04 | General Progress Note ---
Assessment/Plan Assessment/Plan: 88 year old woman with history of afib on DOAC, CVA, dementia, hypertension, hyperlipidemia, diabetes who presented to ED with: #Uncontrolled NIDDM, HONK #TREVOR #Severe hyperkalemia with EKG changes - improved #hypokalemia -Cont. in-patient medical care -AG closed, d/c Insulin ggt, transfered to [facility] -07/14: S/p right femoral rainer cath placed by Gen Sx -labs improved -hold metformin -hold losartan -Nephrology following, recs appreciated -Endocrine following- levamir 12 U, Novolog 4 U qAC, ISS #Acute metabolic encephalopathy #Dementia #history of CVA -hold Aricept and Namenda -Treat underlying acute medical problems -Supportive care -Aspiration and fall precautions #Atrial fibrillation #HTN, uncontrolled #PPM -MTP increased from 25 to 50 BID -Cont. Eliquis 2.5 BID -Cardio, Dr. Macias following, recs appreciated DVT PPx: Eliquis 2.5 BID I spent 35 minutes on this patient's case, >50% time spent on coordination fo care, pt counseling. Case d/w Cardio, Nephro, Gen Sx, and RN. Subjective Allergies: Coded Allergies: NO KNOWN ALLERGIES (Unverified Allergy, Unknown, 12/09/14) Subjective F/u for DKA, TREVOR, UTI, afib. Pt confused, otherwise awake. Objective Last 24 Hour Vital Signs Date Time Temp Pulse Resp B/P (MAP) Pulse Ox O2 Delivery O2 Flow Rate FiO2 07/18/19 08:58 95 165/71 07/18/19 08:00 98.3 95 18 165/71 (102) 97 07/18/19 07:45 84 20 96 Room Air 21 07/18/19 04:00 98.1 81 20 150/94 (112) 97 07/18/19 00:00 97.7 82 18 141/71 (94) 97 07/17/19 21:17 90 166/88 07/17/19 21:00 Room Air 07/17/19 20:00 98.4 87 20 112/69 (83) 99 07/17/19 16:07 98.1 70 18 132/70 (90) 96 07/17/19 12:00 98.0 73 18 138/72 (94) 98 Intake and Output 07/17/19 07/18/19 19:00 07:00 Intake Total 720 ml 580 ml Output Total 400 ml Balance 720 ml 180 ml Intake Oral 120 ml IV Total 600 ml 580 ml Output Urine Total 400 ml # Voids 1 Laboratory Tests 07/18/19 05:50: White Blood Count 7.2, Red Blood Count 3.49L, Hemoglobin 11.7L, Hematocrit 31.4L , Mean Corpuscular Volume 90, Mean Corpuscular Hemoglobin 33.4H, Mean Corpuscular Hemoglobin Concent 37.1H, Red Cell Distribution Width 13.1, Platelet Count 115L, Mean Platelet Volume 8.6, Neutrophils (%) (Auto) 73.3, Lymphocytes (%) (Auto) 17.8L, Monocytes (%) (Auto) 5.9, Eosinophils (%) (Auto) 2.0, Basophils (%) (Auto) 1.0, Sodium Level 147H, Potassium Level 3.4L, Chloride Level 115H, Carbon Dioxide Level 19L, Anion Gap 14, Blood Urea Nitrogen 37H, Creatinine 1.8H, Estimat Glomerular Filtration Rate 26.7, Glucose Level 123H, Calcium Level 8.5 Height (Feet): 5 Height (Inches): 5.00 Weight (Pounds): 135 Objective General Appearance: awake, in NAD, remains confused Neck: supple, normal inspection Respiratory/Chest: lungs clear, normal breath sounds, no respiratory distress, no accessory muscle use Cardiovascular/Chest: normal rate, regular rhythm Abdomen: non tender, soft Extremities: non-tender, normal inspection, right femoral rainer cath c/d/i Ester Villegas M.D. Jul 18, 2019 10:04
--- NOTE | 2019-07-18 10:14 | Pulmonology Progress Note ---
Assessment/Plan Assessment/Plan IMPRESSION: 1. Hyperosmolar state. 2. Renal failure. 3. Hypernatremia. 4. Atrial fibrillation. 5. Hypertension. DISCUSSION: Continue hypotonic fluids and diabetes control. I will follow carefully. CXR shows enlarged cardiac silhouette and pacemaker Butch Aguilar M.D. Subjective Interval Events: None new Constitutional: Reports: no symptoms HEENT: Repors: no symptoms Respiratory: Reports: no symptoms Cardiovascular: Reports: no symptoms Allergies: Coded Allergies: NO KNOWN ALLERGIES (Unverified Allergy, Unknown, 12/09/14) Objective Last 24 Hour Vital Signs Date Time Temp Pulse Resp B/P (MAP) Pulse Ox O2 Delivery O2 Flow Rate FiO2 07/18/19 08:58 95 165/71 07/18/19 08:00 98.3 95 18 165/71 (102) 97 07/18/19 07:45 84 20 96 Room Air 21 07/18/19 04:00 98.1 81 20 150/94 (112) 97 07/18/19 00:00 97.7 82 18 141/71 (94) 97 07/17/19 21:17 90 166/88 07/17/19 21:00 Room Air 07/17/19 20:00 98.4 87 20 112/69 (83) 99 07/17/19 16:07 98.1 70 18 132/70 (90) 96 07/17/19 12:00 98.0 73 18 138/72 (94) 98 Intake and Output 07/17/19 07/18/19 19:00 07:00 Intake Total 720 ml 580 ml Output Total 400 ml Balance 720 ml 180 ml Intake Oral 120 ml IV Total 600 ml 580 ml Output Urine Total 400 ml # Voids 1 General Appearance: no acute distress HEENT: normocephalic Respiratory/Chest: chest wall non-tender Cardiovascular: normal peripheral pulses Microbiology Date/Time Source Procedure Growth Status 07/16/19 21:20 Nasal Nares MRSA Culture - Final Staphylococcus Aureus - Mrsa Complete 07/15/19 15:15 Urine,Clean Catch Urine Culture - Final Klebsiella Pneumoniae Complete 07/16/19 21:20 Rectum VRE Culture - Final Enterococcus Faecium - Vre Complete Laboratory Tests 07/18/19 05:50: White Blood Count 7.2, Red Blood Count 3.49L, Hemoglobin 11.7L, Hematocrit 31.4L , Mean Corpuscular Volume 90, Mean Corpuscular Hemoglobin 33.4H, Mean Corpuscular Hemoglobin Concent 37.1H, Red Cell Distribution Width 13.1, Platelet Count 115L, Mean Platelet Volume 8.6, Neutrophils (%) (Auto) 73.3, Lymphocytes (%) (Auto) 17.8L, Monocytes (%) (Auto) 5.9, Eosinophils (%) (Auto) 2.0, Basophils (%) (Auto) 1.0, Sodium Level 147H, Potassium Level 3.4L, Chloride Level 115H, Carbon Dioxide Level 19L, Anion Gap 14, Blood Urea Nitrogen 37H, Creatinine 1.8H, Estimat Glomerular Filtration Rate 26.7, Glucose Level 123H, Calcium Level 8.5 Current Medications Medications (Trade) Dose Ordered Sig/Jaylen Route PRN Reason Start Time Stop Time Status Last Admin Dose Admin Acetaminophen (Tylenol) 650 mg Q4H PRN ORAL Mild Pain (Pain Scale 1-3) 07/17/19 00:45 08/14/19 16:44 Albuterol/ Ipratropium (Albuterol/ Ipratropium) 3 ml Q4H PRN HHN Shortness of Breath 07/17/19 00:45 07/20/19 16:44 Apixaban (Eliquis) 2.5 mg BID ORAL 07/17/19 09:00 10/14/19 17:59 07/17/19 17:00 Atorvastatin Calcium (Lipitor) 80 mg BEDTIME ORAL 07/17/19 21:00 10/14/19 20:59 07/17/19 21:17 Cefepime HCl 1 gm/ Dextrose 55 ml @ 110 mls/hr Q12H IVPB 07/17/19 01:00 07/23/19 12:59 07/18/19 00:46 Chlorhexidine Gluconate (Ailyn-Hex 2%) 1 applic DAILY@2000 TOPIC 07/17/19 20:00 10/14/19 19:59 07/17/19 20:15 Dextrose (Dextrose 50%) 25 ml Q30M PRN IV Hypoglycemia 07/16/19 23:15 10/14/19 01:14 Dextrose (Dextrose 50%) 50 ml Q30M PRN IV Hypoglycemia 07/16/19 23:15 10/14/19 01:14 Docusate Sodium (Colace) 100 mg EVERY 12 HOURS ORAL 07/17/19 09:00 08/14/19 20:59 07/18/19 08:58 Insulin Aspart (NovoLOG) BEFORE MEALS AND HS SUBQ 07/17/19 06:30 10/14/19 06:29 07/17/19 21:15 Insulin Aspart (NovoLOG) 4 units NOVOTIAC SUBQ 07/17/19 11:50 10/14/19 06:29 07/18/19 06:26 Insulin Detemir (Levemir) 12 units DAILY SUBQ 07/17/19 09:00 10/14/19 13:44 07/18/19 09:02 Metoprolol Tartrate (Lopressor) 50 mg Q12HR ORAL 07/18/19 21:00 10/14/19 20:59 Ondansetron HCl (Zofran) 4 mg Q6H PRN IVP Nausea & Vomiting 07/17/19 22:55 08/14/19 22:54 Sitagliptin Phosphate (Januvia) 25 mg ACBREAKFAST ORAL 07/17/19 06:30 08/15/19 13:44 07/18/19 06:10 Butch Aguilar MD Jul 18, 2019 10:14
--- NOTE | 2019-07-18 11:10 | Diagnostic Imaging Report ---
Indication: Shortness of breath Technique: One view of the chest Comparison: 07/16/2019 Findings: The heart is enlarged. Scarring and volume loss in the right lung apex are again demonstrated. Calcifications are again demonstrated in the left lung apex. Lungs and pleural spaces are largely clear. Impression: Cardiomegaly. No definite acute process Evidence of chronic changes in the bilateral upper lungs
[2019-07-18 12:00] VITALS: BP 156/81
--- NOTE | 2019-07-18 12:11 | Surgery Progress Note ---
Surgery Progress Note Subjective Procedure Performed Right femoral temporary hemodialysis catheter insertion Symptoms: improved, tolerating diet, voiding well, passing flatus, pain decreased Objective Last 24 Hour Vital Signs Date Time Temp Pulse Resp B/P (MAP) Pulse Ox O2 Delivery O2 Flow Rate FiO2 07/18/19 09:00 Room Air 07/18/19 08:58 95 165/71 07/18/19 08:00 98.3 95 18 165/71 (102) 97 07/18/19 07:45 84 20 96 Room Air 21 07/18/19 04:00 98.1 81 20 150/94 (112) 97 07/18/19 00:00 97.7 82 18 141/71 (94) 97 07/17/19 21:17 90 166/88 07/17/19 21:00 Room Air 07/17/19 20:00 98.4 87 20 112/69 (83) 99 07/17/19 16:07 98.1 70 18 132/70 (90) 96 I&O Intake and Output 07/17/19 07/18/19 19:00 07:00 Intake Total 720 ml 580 ml Output Total 400 ml Balance 720 ml 180 ml Intake Oral 120 ml IV Total 600 ml 580 ml Output Urine Total 400 ml # Voids 1 Dressing: dry Wound: clean Cardiovascular: RSR Respiratory: clear, decreased breath sounds Abdomen: soft, non-tender, present bowel sounds, non-distended Extremities: no edema, no tenderness, no cyanosis Laboratory Tests Test 07/18/19 05:50 White Blood Count 7.2 K/UL (4.8-10.8) Red Blood Count 3.49 M/UL (4.20-5.40) L Hemoglobin 11.7 G/DL (12.0-16.0) L Hematocrit 31.4 % (37.0-47.0) L Mean Corpuscular Volume 90 FL (80-99) Mean Corpuscular Hemoglobin 33.4 PG (27.0-31.0) H Mean Corpuscular Hemoglobin Concent 37.1 G/DL (32.0-36.0) H Red Cell Distribution Width 13.1 % (11.6-14.8) Platelet Count 115 K/UL (150-450) L Mean Platelet Volume 8.6 FL (6.5-10.1) Neutrophils (%) (Auto) 73.3 % (45.0-75.0) Lymphocytes (%) (Auto) 17.8 % (20.0-45.0) L Monocytes (%) (Auto) 5.9 % (1.0-10.0) Eosinophils (%) (Auto) 2.0 % (0.0-3.0) Basophils (%) (Auto) 1.0 % (0.0-2.0) Sodium Level 147 MMOL/L (136-145) H Potassium Level 3.4 MMOL/L (3.5-5.1) L Chloride Level 115 MMOL/L (98-107) H Carbon Dioxide Level 19 MMOL/L (21-32) L Anion Gap 14 mmol/L (5-15) Blood Urea Nitrogen 37 mg/dL (7-18) H Creatinine 1.8 MG/DL (0.55-1.30) H Estimat Glomerular Filtration Rate 26.7 mL/min (>60) Glucose Level 123 MG/DL (74-106) H Calcium Level 8.5 MG/DL (8.5-10.1) Plan Problems: (1) Elevated troponin (2) Elevated LFTs (3) Hyperkalemia Assessment & Plan: Calcium Dextrose insulin as needed Urgent hemodialysis discussed with shellfish bed worker labs improved discussed with nephro will monitor hold line (4) ARF (acute renal failure) (5) Encephalopathy acute (6) Acute delirium (7) Sepsis Assessment & Plan: Hyperglycemia, hyperkalemia, renal insufficiency. EKG with peaked T waves abnormal Emergent dialysis indicated recommended Complete examination performed chart reviewed discussion had with patient's family regards to history discussion had with primary care physician shellfish bed worker Emergency hemodialysis catheter insertion temporary indicated recommended Please see procedure note We will follow with recommendations thank you for let me participate patient's care improved resuscitating well stable line removed see note (8) UTI (urinary tract infection) (9) Altered level of consciousness (10) Uncontrolled type 2 diabetes mellitus with hyperosmolar nonketotic hyperglycemia Gilberto Donovan Jul 18, 2019 12:11
--- NOTE | 2019-07-18 12:13 | Operative Note - PDOC ---
Operative Note Operative Note Date of Operation/Procedure: Jul 18, 2019 Pre-op Diagnosis: Sepsis, hyperkalemia, abnormal EKG changes, renal insufficiency Procedure: Right femoral temporary hemodialysis catheter removal Post-op Diagnosis: same as pre-op Surgeon: Gilberto Donovan MD Specimen: none Complications: none Condition: stable Estimated Blood Loss: minimal Drains: none Implant(s) used?: No Indications for Procedure 88-year-old female came in septic hyperkalemia peaked T waves abnormal EKG with changes potentially requiring hemodialysis urgent line placed in the emergency department during resuscitation to ensure access possible in case emergency dialysis necessary. However subsequent hours with resuscitation patient improved and line no longer necessary. Patient is improved over the past few days and line cannot be removed safely. Description of Procedure Case discussed with PCP and nephrology. Dressings removed from the right groin site. Patient laid in supine position comfortable. Prior sutures removed. Site clean. Catheter removed and pressure held for approximately 15 minutes until hemostasis noted. Dressings applied. Patient taught procedure well. Will monitor site for hematoma infection or other abnormality. Gilberto Donovan Jul 18, 2019 12:13
--- NOTE | 2019-07-18 12:41 | Cardiac Electrophysiology PN ---
Assessment/Plan Assessment/Plan 1. Atrial fibrillation. The rate is currently controlled on metoprolol 50 mg b.i.d. On Eliquis 2.5 mg b.i.d. 2. Hypertension, on metoprolol 50 b.i.d.. 3. S/P Pacer . Brand? Nl Fx by tele 4. Uncontrolled diabetes, on insulin. Hemoglobin A1c of 10. 5. Acute renal failure. The patient was evaluated by Dr. Jackson.Cr improved to 1.8 6. The patient's hyperkalemia was resolved after HD. 7. Hyperlipidemia, on Lipitor. DENI RN Subjective Subjective Transferred out of ICU.Right femoral dialysis catheter was removed today.Off tele. Objective Last 24 Hour Vital Signs Date Time Temp Pulse Resp B/P (MAP) Pulse Ox O2 Delivery O2 Flow Rate FiO2 07/18/19 12:00 98.1 84 20 156/81 (106) 97 07/18/19 09:00 Room Air 07/18/19 08:58 95 165/71 07/18/19 08:00 98.3 95 18 165/71 (102) 97 07/18/19 07:45 84 20 96 Room Air 21 07/18/19 04:00 98.1 81 20 150/94 (112) 97 07/18/19 00:00 97.7 82 18 141/71 (94) 97 07/17/19 21:17 90 166/88 07/17/19 21:00 Room Air 07/17/19 20:00 98.4 87 20 112/69 (83) 99 07/17/19 16:07 98.1 70 18 132/70 (90) 96 Intake and Output 07/17/19 07/18/19 19:00 07:00 Intake Total 720 ml 580 ml Output Total 400 ml Balance 720 ml 180 ml Intake Oral 120 ml IV Total 600 ml 580 ml Output Urine Total 400 ml # Voids 1 Laboratory Tests Test 07/18/19 05:50 White Blood Count 7.2 K/UL (4.8-10.8) Red Blood Count 3.49 M/UL (4.20-5.40) L Hemoglobin 11.7 G/DL (12.0-16.0) L Hematocrit 31.4 % (37.0-47.0) L Mean Corpuscular Volume 90 FL (80-99) Mean Corpuscular Hemoglobin 33.4 PG (27.0-31.0) H Mean Corpuscular Hemoglobin Concent 37.1 G/DL (32.0-36.0) H Red Cell Distribution Width 13.1 % (11.6-14.8) Platelet Count 115 K/UL (150-450) L Mean Platelet Volume 8.6 FL (6.5-10.1) Neutrophils (%) (Auto) 73.3 % (45.0-75.0) Lymphocytes (%) (Auto) 17.8 % (20.0-45.0) L Monocytes (%) (Auto) 5.9 % (1.0-10.0) Eosinophils (%) (Auto) 2.0 % (0.0-3.0) Basophils (%) (Auto) 1.0 % (0.0-2.0) Sodium Level 147 MMOL/L (136-145) H Potassium Level 3.4 MMOL/L (3.5-5.1) L Chloride Level 115 MMOL/L (98-107) H Carbon Dioxide Level 19 MMOL/L (21-32) L Anion Gap 14 mmol/L (5-15) Blood Urea Nitrogen 37 mg/dL (7-18) H Creatinine 1.8 MG/DL (0.55-1.30) H Estimat Glomerular Filtration Rate 26.7 mL/min (>60) Glucose Level 123 MG/DL (74-106) H Calcium Level 8.5 MG/DL (8.5-10.1) Microbiology Date/Time Source Procedure Growth Status 07/16/19 21:20 Nasal Nares MRSA Culture - Final Staphylococcus Aureus - Mrsa Complete 07/15/19 15:15 Urine,Clean Catch Urine Culture - Final Klebsiella Pneumoniae Complete 07/16/19 21:20 Rectum VRE Culture - Final Enterococcus Faecium - Vre Complete Objective HEAD AND NECK: No JVD. LUNGS: Clear. CARDIOVASCULAR: Irregular S1 and S2 with no gallop. ABDOMEN: Soft. EXTREMITIES: No pitting edema. 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 Vladimir Macias MD Jul 18, 2019 12:41
--- NOTE | 2019-07-18 13:00 | NUR ---
NURSE NOTES: Inserted PIV on left antecubital G22. Good back flow noted, flushed and patent.
--- NOTE | 2019-07-18 13:21 | General Progress Note ---
Assessment/Plan Problem List: (1) Uncontrolled type 2 diabetes mellitus with hyperosmolar nonketotic hyperglycemia ICD Codes: E11.00 - Type 2 diabetes mellitus with hyperosmolarity without nonketotic hyperglycemic-hyperosmolar coma (N[facility]) SNOMED: 06480093, 234313933, 465569411 (2) ARF (acute renal failure) ICD Codes: N17.9 - Acute kidney failure, unspecified SNOMED: 91472419, 535559064, 689861273 (3) Sepsis ICD Codes: A41.9 - Sepsis SNOMED: 51884796 (4) Acute delirium ICD Codes: R41.0 - Disorientation, unspecified SNOMED: 9111288 Assessment/Plan: continue Levemir 12 units daily continue Novolog 4 units ac tid + SSI hypoglycemia protocol in order Subjective ROS Limited/Unobtainable: Yes Allergies: Coded Allergies: NO KNOWN ALLERGIES (Unverified Allergy, Unknown, 12/09/14) Subjective events noted interval notes reviewed glucose values are stable Item Value Date Time Bedside Blood Glucose 137 mg/dl H 07/18/19 1158 Bedside Blood Glucose 111 mg/dl 07/18/19 0902 Bedside Blood Glucose 111 mg/dl 07/18/19 0626 Bedside Blood Glucose 200 mg/dl H 07/17/19 2115 Bedside Blood Glucose 169 mg/dl H 07/17/19 1703 Bedside Blood Glucose 177 mg/dl H 07/17/19 1200 Bedside Blood Glucose 94 mg/dl 07/17/19 0907 Objective Last 24 Hour Vital Signs Date Time Temp Pulse Resp B/P (MAP) Pulse Ox O2 Delivery O2 Flow Rate FiO2 07/18/19 12:00 98.1 84 20 156/81 (106) 97 07/18/19 09:00 Room Air 07/18/19 08:58 95 165/71 07/18/19 08:00 98.3 95 18 165/71 (102) 97 07/18/19 07:45 84 20 96 Room Air 21 07/18/19 04:00 98.1 81 20 150/94 (112) 97 07/18/19 00:00 97.7 82 18 141/71 (94) 97 07/17/19 21:17 90 166/88 07/17/19 21:00 Room Air 07/17/19 20:00 98.4 87 20 112/69 (83) 99 07/17/19 16:07 98.1 70 18 132/70 (90) 96 Intake and Output 07/17/19 07/18/19 19:00 07:00 Intake Total 720 ml 580 ml Output Total 400 ml Balance 720 ml 180 ml Intake Oral 120 ml IV Total 600 ml 580 ml Output Urine Total 400 ml # Voids 1 Laboratory Tests 07/18/19 05:50: White Blood Count 7.2, Red Blood Count 3.49L, Hemoglobin 11.7L, Hematocrit 31.4L , Mean Corpuscular Volume 90, Mean Corpuscular Hemoglobin 33.4H, Mean Corpuscular Hemoglobin Concent 37.1H, Red Cell Distribution Width 13.1, Platelet Count 115L, Mean Platelet Volume 8.6, Neutrophils (%) (Auto) 73.3, Lymphocytes (%) (Auto) 17.8L, Monocytes (%) (Auto) 5.9, Eosinophils (%) (Auto) 2.0, Basophils (%) (Auto) 1.0, Sodium Level 147H, Potassium Level 3.4L, Chloride Level 115H, Carbon Dioxide Level 19L, Anion Gap 14, Blood Urea Nitrogen 37H, Creatinine 1.8H, Estimat Glomerular Filtration Rate 26.7, Glucose Level 123H, Calcium Level 8.5 Height (Feet): 5 Height (Inches): 5.00 Weight (Pounds): 135 General Appearance: no apparent distress Neck: normal alignment Cardiovascular: normal rate Respiratory/Chest: lungs clear Abdomen: normal bowel sounds Pelvis: normal external exam Objective Current Medications Medications (Trade) Dose Ordered Sig/Jaylen Route PRN Reason Start Time Stop Time Status Last Admin Dose Admin Acetaminophen (Tylenol) 650 mg Q4H PRN ORAL Mild Pain (Pain Scale 1-3) 07/17/19 00:45 08/14/19 16:44 Albuterol/ Ipratropium (Albuterol/ Ipratropium) 3 ml Q4H PRN HHN Shortness of Breath 07/17/19 00:45 07/20/19 16:44 Apixaban (Eliquis) 2.5 mg BID ORAL 07/17/19 09:00 10/14/19 17:59 07/17/19 17:00 Atorvastatin Calcium (Lipitor) 80 mg BEDTIME ORAL 07/17/19 21:00 10/14/19 20:59 07/17/19 21:17 Cefepime HCl 1 gm/ Dextrose 55 ml @ 110 mls/hr Q12H IVPB 07/17/19 01:00 07/23/19 12:59 07/18/19 00:46 Chlorhexidine Gluconate (Ailyn-Hex 2%) 1 applic DAILY@2000 TOPIC 07/17/19 20:00 10/14/19 19:59 07/17/19 20:15 Dextrose (Dextrose 50%) 25 ml Q30M PRN IV Hypoglycemia 07/16/19 23:15 10/14/19 01:14 Dextrose (Dextrose 50%) 50 ml Q30M PRN IV Hypoglycemia 07/16/19 23:15 10/14/19 01:14 Docusate Sodium (Colace) 100 mg EVERY 12 HOURS ORAL 07/17/19 09:00 08/14/19 20:59 07/18/19 08:58 Insulin Aspart (NovoLOG) BEFORE MEALS AND HS SUBQ 07/17/19 06:30 10/14/19 06:29 07/17/19 21:15 Insulin Aspart (NovoLOG) 4 units NOVOTIAC SUBQ 07/17/19 11:50 10/14/19 06:29 07/18/19 11:58 Insulin Detemir (Levemir) 12 units DAILY SUBQ 07/17/19 09:00 10/14/19 13:44 07/18/19 09:02 Metoprolol Tartrate (Lopressor) 50 mg Q12HR ORAL 07/18/19 21:00 10/14/19 20:59 Ondansetron HCl (Zofran) 4 mg Q6H PRN IVP Nausea & Vomiting 07/17/19 22:55 08/14/19 22:54 Sitagliptin Phosphate (Januvia) 25 mg ACBREAKFAST ORAL 07/17/19 06:30 08/15/19 13:44 07/18/19 06:10 Lucio North MD Jul 18, 2019 13:21
--- NOTE | 2019-07-18 14:59 | NUR ---
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 Macias.
[2019-07-18 16:00] VITALS: BP 144/72
[2019-07-18] MEDS ORDERED: Tubing IV Secondary IV ONE (17:32)
--- NOTE | 2019-07-18 17:33 | NUR ---
CASE MANAGEMENT:INITIAL REVIEW 07/16/2019 88 YR OLD FEMALE BIBA FROM HOME CC;ABNORMAL LABS SI;HYPEROSMOLAR HYPERGLYCEMIA STATE. AC RENAL FAILURE. UTI. HYPERKALEMIA. AC ENCEPHALOPATHY. 97.0 110 20 100/60 98% ON RA K+ 7.0 BUN 95 CR 3.5 BG 1000 CA 10.5 MG 3.2 AST 10 PHOS 5.9 UA+ GLUCOSE, BLOOD, NITRITE, LEUKOCYTE, BACTERIA CXR ~ Stable significantly enlarged cardiac silhouette. Asymmetric haziness in the left lung may be secondary to patient rotation/ artifact. Asymmetric mild pulmonary edema not excluded. IS;IVF NS BOLUS INSULIN REGULAR CALCIUM GLUCONATE IV ADMITTED TO ICU @ 2256 ON 07/15/2019 ICU STATUS DCP;PATIENT IS FROM HOME CASE MANAGEMENT:REVIEW 07/18/2019 SI;SEPSIS. AC DELIRIUM. AC RENAL FAILURE. DM. 98.3 95 20 165/71 96% ON RA NA 157 CL 115 BUN 37 CR 1.8 BG 123 IS;CEFEPIME IV Q12 HRS INSULIN NOVOLOG INSULIN LEVEMIR ELIQUIS PO BID LOPRESSOR PO Q1 2HRS MED SURG STATUS TRANSFERRED TO MED SURG ON 07/16/2019 @ 2009 DCP;PATIENT IS FROM HOME
--- NOTE | 2019-07-18 19:34 | NUR ---
HAND-OFF: Report given to Jamilu RN.
[2019-07-18 20:00] VITALS: BP 122/57
[2019-07-18] MEDS: Dyna-Hex 2% Top Sol 2oz TOPIC SCH (20:00)
[2019-07-18] MEDS: Atorvastatin 80mg tab ORAL SCH (20:21)
[2019-07-18] MEDS: Metoprolol Tartrate 50mg tab ORAL SCH (20:23)
--- NOTE | 2019-07-18 22:34 | Neurology Progress Note ---
Interim History Interim History ROS Limited/Unobtainable: Yes Interim History started diet Objective Physical Exam Last Vital Signs Date Time Temp Pulse Resp B/P (MAP) Pulse Ox O2 Delivery O2 Flow Rate FiO2 07/18/19 20:23 78 103/51 07/18/19 20:00 98.6 18 99 07/18/19 09:00 Room Air 07/18/19 07:45 21 Laboratory Tests Test 07/18/19 05:50 White Blood Count 7.2 K/UL (4.8-10.8) Red Blood Count 3.49 M/UL (4.20-5.40) L Hemoglobin 11.7 G/DL (12.0-16.0) L Hematocrit 31.4 % (37.0-47.0) L Mean Corpuscular Volume 90 FL (80-99) Mean Corpuscular Hemoglobin 33.4 PG (27.0-31.0) H Mean Corpuscular Hemoglobin Concent 37.1 G/DL (32.0-36.0) H Red Cell Distribution Width 13.1 % (11.6-14.8) Platelet Count 115 K/UL (150-450) L Mean Platelet Volume 8.6 FL (6.5-10.1) Neutrophils (%) (Auto) 73.3 % (45.0-75.0) Lymphocytes (%) (Auto) 17.8 % (20.0-45.0) L Monocytes (%) (Auto) 5.9 % (1.0-10.0) Eosinophils (%) (Auto) 2.0 % (0.0-3.0) Basophils (%) (Auto) 1.0 % (0.0-2.0) Sodium Level 147 MMOL/L (136-145) H Potassium Level 3.4 MMOL/L (3.5-5.1) L Chloride Level 115 MMOL/L (98-107) H Carbon Dioxide Level 19 MMOL/L (21-32) L Anion Gap 14 mmol/L (5-15) Blood Urea Nitrogen 37 mg/dL (7-18) H Creatinine 1.8 MG/DL (0.55-1.30) H Estimat Glomerular Filtration Rate 26.7 mL/min (>60) Glucose Level 123 MG/DL (74-106) H Calcium Level 8.5 MG/DL (8.5-10.1) Head: normocophalic Neck: no rigidity EENT: benign Neurologic Exam Objective somnolent, open eyes to pain right spastic hemiparesis cc 36 min Impression/Recommendations Problems: (1) Elevated troponin (2) Elevated LFTs (3) Acute delirium (4) Sepsis (5) Altered level of consciousness (6) Uncontrolled type 2 diabetes mellitus with hyperosmolar nonketotic hyperglycemia (7) ARF (acute renal failure) (8) Encephalopathy acute (9) UTI (urinary tract infection) (10) Hyperkalemia Diagnostic Impression acute encephalopathy hx of advanced dementia Right spastic hemiparesis Sepsis Cultures pending atb broad spectrum hold namenda hold sedating meds Christopher Darden MD Jul 18, 2019 22:33
[2019-07-19] VITALS: BP 130/69
[2019-07-19] MEDS: Cefepime HCl 1 GM in D5W 55 ML IVPB SCH ×2 (00:37→12:40)
--- NOTE | 2019-07-19 00:46 | NUR ---
NURSE NOTES: Patient asleep. Breathing unlabored on room air. No s/s of pain or discomfort noted. IV noted on left antecubital and right hand. On bilateral wrist soft restraint for patient safety. Bilateral pulses present and skin intact. Purewick on for incontinence care. Bed placed at the lowest with alarm, brake, and siderails up for safety. Call light placed within reach. Will continue to monitor.
[2019-07-19 04:00] VITALS: BP 131/69
--- NOTE | 2019-07-19 05:45 | NUR ---
NURSE NOTES: Provided proper incontinence care.
[2019-07-19] MEDS: sitaGLIPtin 25mg tab ORAL SCH (06:14)
[2019-07-19] MEDS: NovoLOG Insulin Flexpen SUBQ SCH ×7 (06:15→21:06)
[2019-07-19 07:15] LABS: ANION GAP 11 mmol/L (5-15); BLOOD UREA NITROGEN 29 mg/dL (7-18); CALCIUM 9.1 MG/DL (8.5-10.1); CARBON DIOXIDE 20 MMOL/L (21-32); CHLORIDE 112 MMOL/L (98-107); CREATININE 1.8 MG/DL (0.55-1.30); POTASSIUM 3.6 MMOL/L (3.5-5.1); SODIUM 143 MMOL/L (136-145)
--- NOTE | 2019-07-19 07:20 | NUR ---
HAND-OFF: Report given to KAREN Alfaro. Plan of care endorsed.
[2019-07-19 07:24] LABS: PHOSPHORUS 3.1 MG/DL (2.5-4.9)
[2019-07-19 07:28] LABS: EOSINOPHILS % (AUTO) 2.4 % (0.0-3.0); HEMATOCRIT 34.1 % (37.0-47.0); HEMOGLOBIN 11.9 G/DL (12.0-16.0); LYMPHOCYTES % (AUTO) 16.4 % (20.0-45.0); MEAN CORPUSCULAR VOLUME 94 FL (80-99); MONOCYTES % (AUTO) 9.7 % (1.0-10.0); NEUTROPHILS % (AUTO) 70.5 % (45.0-75.0); PLATELET COUNT 112 K/UL (150-450); RED BLOOD COUNT 3.63 M/UL (4.20-5.40); RED CELL DISTRIBUTION WIDTH 11.6 % (11.6-14.8); WHITE BLOOD COUNT 6.2 K/UL (4.8-10.8)
[2019-07-19 08:00] VITALS: BP 126/81
[2019-07-19] MEDS: Docusate 100mg cap ORAL SCH ×2 (09:38→21:04)
[2019-07-19] MEDS: Eliquis 2.5mg tablet ORAL SCH ×2 (09:39→17:17)
[2019-07-19] MEDS: Metoprolol Tartrate 50mg tab ORAL SCH ×2 (09:40→21:00)
[2019-07-19] MEDS: Levemir Flexpen SUBQ SCH (09:54)
--- NOTE | 2019-07-19 10:49 | Nephrology Progress Note ---
Assessment/Plan Plan #Acute renal failure - susept ATN- likely with baseline CKD? #Hyperkalemia- resolved #hypernatremia #severe Hyperglycemia- HHS #AMS #afib on DOAC #CVA, #dementia #hypertension # hyperlipidemia #diabetes - DC IVF - monitor BMP, mag, phos, calcium - replete K - monitor BG - endocrine eval - continue cefepime - continue statin - increase MTP to 50 BID - Eliquis 2.5 BID I spent 35 minutes on this patient's case, >50% time spent on coordination fo care, pt counseling. Subjective ROS Limited/Unobtainable: No Subjective Breathing stable on room air this morning Cr downtrending potassium lo repleted sodium improving BP uptrending Objective Objective Last 24 Hour Vital Signs Date Time Temp Pulse Resp B/P (MAP) Pulse Ox O2 Delivery O2 Flow Rate FiO2 07/19/19 09:40 83 126/81 07/19/19 09:00 Room Air 07/19/19 08:00 98.0 83 19 126/81 (96) 97 07/19/19 07:00 83 20 97 Room Air 21 07/19/19 04:00 98.4 80 18 131/69 (89) 94 07/19/19 00:00 97.3 79 18 130/69 (89) 97 07/18/19 21:00 Room Air 07/18/19 20:23 78 103/51 07/18/19 20:00 76 20 94 Room Air 21 07/18/19 20:00 98.6 75 18 122/57 (78) 99 07/18/19 16:00 98.2 81 18 144/72 (96) 98 07/18/19 12:00 98.1 84 20 156/81 (106) 97 Intake and Output 07/18/19 07/19/19 19:00 07:00 Intake Total 325 ml 55 ml Output Total 250 ml 700 ml Balance 75 ml -645 ml Intake Oral 120 ml IV Total 205 ml 55 ml Output Urine Total 250 ml 700 ml # Voids 1 Laboratory Tests 07/19/19 05:50: White Blood Count 6.2, Red Blood Count 3.63L, Hemoglobin 11.9L, Hematocrit 34.1L , Mean Corpuscular Volume 94, Mean Corpuscular Hemoglobin 32.7H, Mean Corpuscular Hemoglobin Concent 34.9, Red Cell Distribution Width 11.6, Platelet Count 112L, Mean Platelet Volume 9.5, Neutrophils (%) (Auto) 70.5, Lymphocytes ( %) (Auto) 16.4L, Monocytes (%) (Auto) 9.7, Eosinophils (%) (Auto) 2.4, Basophils (%) (Auto) 1.0, Sodium Level 143, Potassium Level 3.6, Chloride Level 112H, Carbon Dioxide Level 20L, Anion Gap 11, Blood Urea Nitrogen 29H, Creatinine 1.8H, Estimat Glomerular Filtration Rate 26.7, Glucose Level 219H, Calcium Level 9.1, Phosphorus Level 3.1, Magnesium Level 2.1 Height (Feet): 5 Height (Inches): 5.00 Weight (Pounds): 134 Vikki Jackson M.D. Jul 19, 2019 10:49
--- NOTE | 2019-07-19 11:01 | General Progress Note ---
Assessment/Plan Assessment/Plan: 88 year old woman with history of afib on DOAC, CVA, dementia, hypertension, hyperlipidemia, diabetes who presented to ED with: #Uncontrolled NIDDM, HONK, Hgb A1C 10.4 #TREVOR #Severe hyperkalemia with EKG changes - improved #hypokalemia - improved #Klebsiella UTI -Cont. in-patient medical care -Hgb A1C 10.4 -07/14: S/p right femoral Zeke cath placed by Gen Sx -labs improved, no HD at this time -hold metformin -hold losartan -Nephrology following, recs appreciated -Endocrine following- Levemir 12 U, Novolog 4 U qAC, ISS -ID: cont. cefepime for Klebsiella UTI #Acute metabolic encephalopathy #Dementia #history of CVA -hold Aricept and Namenda -Treat underlying acute medical problems -Supportive care -Aspiration and fall precautions #Atrial fibrillation #HTN, uncontrolled #PPM -MTP increased from 25 to 50 BID -Cont. Eliquis 2.5 BID -Cardio, Dr. Macias following, recs appreciated DVT PPx: Eliquis 2.5 BID I spent 35 minutes on this patient's case, >50% time spent on coordination fo care, pt counseling. Case d/w Cardio, Nephro, Gen Sx, and RN. Subjective Allergies: Coded Allergies: NO KNOWN ALLERGIES (Unverified Allergy, Unknown, 12/09/14) Subjective F/u for DKA, TREVOR, UTI, afib. Renal function remains elevated, BG elevated. Pt remains confused, otherwise awake and comfortable. Objective Last 24 Hour Vital Signs Date Time Temp Pulse Resp B/P (MAP) Pulse Ox O2 Delivery O2 Flow Rate FiO2 07/19/19 09:40 83 126/81 07/19/19 09:00 Room Air 07/19/19 08:00 98.0 83 19 126/81 (96) 97 07/19/19 07:00 83 20 97 Room Air 07/19/19 04:00 98.4 80 18 131/69 (89) 94 07/19/19 00:00 97.3 79 18 130/69 (89) 97 07/18/19 21:00 Room Air 07/18/19 20:23 78 103/51 07/18/19 20:00 76 20 94 Room Air 21 07/18/19 20:00 98.6 75 18 122/57 (78) 99 07/18/19 16:00 98.2 81 18 144/72 (96) 98 07/18/19 12:00 98.1 84 20 156/81 (106) 97 Intake and Output 07/18/19 07/19/19 19:00 07:00 Intake Total 325 ml 55 ml Output Total 250 ml 700 ml Balance 75 ml -645 ml Intake Oral 120 ml IV Total 205 ml 55 ml Output Urine Total 250 ml 700 ml # Voids 1 Laboratory Tests 07/19/19 05:50: White Blood Count 6.2, Red Blood Count 3.63L, Hemoglobin 11.9L, Hematocrit 34.1L , Mean Corpuscular Volume 94, Mean Corpuscular Hemoglobin 32.7H, Mean Corpuscular Hemoglobin Concent 34.9, Red Cell Distribution Width 11.6, Platelet Count 112L, Mean Platelet Volume 9.5, Neutrophils (%) (Auto) 70.5, Lymphocytes ( %) (Auto) 16.4L, Monocytes (%) (Auto) 9.7, Eosinophils (%) (Auto) 2.4, Basophils (%) (Auto) 1.0, Sodium Level 143, Potassium Level 3.6, Chloride Level 112H, Carbon Dioxide Level 20L, Anion Gap 11, Blood Urea Nitrogen 29H, Creatinine 1.8H, Estimat Glomerular Filtration Rate 26.7, Glucose Level 219H, Calcium Level 9.1, Phosphorus Level 3.1, Magnesium Level 2.1 Height (Feet): 5 Height (Inches): 5.00 Weight (Pounds): 134 Objective General Appearance: awake, in NAD, confused, AOx1 self only Neck: supple, normal inspection Respiratory/Chest: lungs clear, normal breath sounds, no respiratory distress, no accessory muscle use Cardiovascular/Chest: normal rate, regular rhythm Abdomen: non tender, soft Extremities: non-tender, normal inspection Ester Villegas M.D. Jul 19, 2019 11:01
--- NOTE | 2019-07-19 11:03 | Pulmonology Progress Note ---
Assessment/Plan Assessment/Plan IMPRESSION: 1. Hyperosmolar state. 2. Renal failure. 3. Hypernatremia. 4. Atrial fibrillation. 5. Hypertension. DISCUSSION: Continue hypotonic fluids and diabetes control. I will follow carefully. CXR shows enlarged cardiac silhouette and pacemaker Butch Aguilar M.D. Subjective Interval Events: None new Constitutional: Reports: no symptoms HEENT: Repors: no symptoms Respiratory: Reports: no symptoms Cardiovascular: Reports: no symptoms Gastrointestinal/Abdominal: Reports: no symptoms Allergies: Coded Allergies: NO KNOWN ALLERGIES (Unverified Allergy, Unknown, 12/09/14) Objective Last 24 Hour Vital Signs Date Time Temp Pulse Resp B/P (MAP) Pulse Ox O2 Delivery O2 Flow Rate FiO2 07/19/19 09:40 83 126/81 07/19/19 09:00 Room Air 07/19/19 08:00 98.0 83 19 126/81 (96) 97 07/19/19 07:00 83 20 97 Room Air 21 07/19/19 04:00 98.4 80 18 131/69 (89) 94 07/19/19 00:00 97.3 79 18 130/69 (89) 97 07/18/19 21:00 Room Air 07/18/19 20:23 78 103/51 07/18/19 20:00 76 20 94 Room Air 21 07/18/19 20:00 98.6 75 18 122/57 (78) 99 07/18/19 16:00 98.2 81 18 144/72 (96) 98 07/18/19 12:00 98.1 84 20 156/81 (106) 97 Intake and Output 07/18/19 07/19/19 19:00 07:00 Intake Total 325 ml 55 ml Output Total 250 ml 700 ml Balance 75 ml -645 ml Intake Oral 120 ml IV Total 205 ml 55 ml Output Urine Total 250 ml 700 ml # Voids 1 General Appearance: no acute distress HEENT: normocephalic Respiratory/Chest: chest wall non-tender Cardiovascular: normal peripheral pulses Abdomen: normal bowel sounds Microbiology Date/Time Source Procedure Growth Status 07/16/19 21:20 Nasal Nares MRSA Culture - Final Staphylococcus Aureus - Mrsa Complete 07/16/19 21:20 Rectum VRE Culture - Final Enterococcus Faecium - Vre Complete Laboratory Tests 07/19/19 05:50: White Blood Count 6.2, Red Blood Count 3.63L, Hemoglobin 11.9L, Hematocrit 34.1L , Mean Corpuscular Volume 94, Mean Corpuscular Hemoglobin 32.7H, Mean Corpuscular Hemoglobin Concent 34.9, Red Cell Distribution Width 11.6, Platelet Count 112L, Mean Platelet Volume 9.5, Neutrophils (%) (Auto) 70.5, Lymphocytes ( %) (Auto) 16.4L, Monocytes (%) (Auto) 9.7, Eosinophils (%) (Auto) 2.4, Basophils (%) (Auto) 1.0, Sodium Level 143, Potassium Level 3.6, Chloride Level 112H, Carbon Dioxide Level 20L, Anion Gap 11, Blood Urea Nitrogen 29H, Creatinine 1.8H, Estimat Glomerular Filtration Rate 26.7, Glucose Level 219H, Hemoglobin A1c [Pending], Calcium Level 9.1, Phosphorus Level 3.1, Magnesium Level 2.1 Current Medications Medications (Trade) Dose Ordered Sig/Jaylen Route PRN Reason Start Time Stop Time Status Last Admin Dose Admin Acetaminophen (Tylenol) 650 mg Q4H PRN ORAL Mild Pain (Pain Scale 1-3) 07/17/19 00:45 08/14/19 16:44 Albuterol/ Ipratropium (Albuterol/ Ipratropium) 3 ml Q4H PRN HHN Shortness of Breath 07/17/19 00:45 07/20/19 16:44 Apixaban (Eliquis) 2.5 mg BID ORAL 07/17/19 09:00 10/14/19 17:59 07/19/19 09:39 Atorvastatin Calcium (Lipitor) 80 mg BEDTIME ORAL 07/17/19 21:00 10/14/19 20:59 07/18/19 20:21 Cefepime HCl 1 gm/ Dextrose 55 ml @ 110 mls/hr Q12H IVPB 07/17/19 01:00 07/23/19 12:59 07/19/19 00:37 Chlorhexidine Gluconate (Ailyn-Hex 2%) 1 applic DAILY@2000 TOPIC 07/17/19 20:00 10/14/19 19:59 07/17/19 20:15 Dextrose (Dextrose 50%) 25 ml Q30M PRN IV Hypoglycemia 07/16/19 23:15 10/14/19 01:14 Dextrose (Dextrose 50%) 50 ml Q30M PRN IV Hypoglycemia 07/16/19 23:15 10/14/19 01:14 Docusate Sodium (Colace) 100 mg EVERY 12 HOURS ORAL 07/17/19 09:00 08/14/19 20:59 07/19/19 09:38 Insulin Aspart (NovoLOG) BEFORE MEALS AND HS SUBQ 07/17/19 06:30 10/14/19 06:29 07/19/19 06:15 Insulin Aspart (NovoLOG) 4 units NOVOTIAC SUBQ 07/17/19 11:50 10/14/19 06:29 07/19/19 06:15 Insulin Detemir (Levemir) 12 units DAILY SUBQ 07/17/19 09:00 10/14/19 13:44 07/19/19 09:54 Metoprolol Tartrate (Lopressor) 50 mg Q12HR ORAL 07/18/19 21:00 10/14/19 20:59 07/19/19 09:40 Ondansetron HCl (Zofran) 4 mg Q6H PRN IVP Nausea & Vomiting 07/17/19 22:55 08/14/19 22:54 Sitagliptin Phosphate (Januvia) 25 mg ACBREAKFAST ORAL 07/17/19 06:30 08/15/19 13:44 07/19/19 06:14 Butch Aguilar MD Jul 19, 2019 11:03
--- NOTE | 2019-07-19 11:56 | Cardiac Electrophysiology PN ---
Assessment/Plan Assessment/Plan 1. Atrial fibrillation. On metoprolol 50 mg b.i.d. and Eliquis 2.5 mg b.i.d. 2. Hypertension, on metoprolol 50 b.i.d.. 3. S/P [facility] [employer] VVI Pacer. Nl Fx by tele 4. Uncontrolled diabetes, on insulin. Hemoglobin A1c of 10. 5. Acute renal failure. The patient was evaluated by Dr. Jackson.Cr improved to 1.8 6. Hyperkalemia was resolved after HD. 7. Hyperlipidemia, on Lipitor. DENI RN Subjective Subjective Transferred out of ICU. Right femoral dialysis catheter was removed.Off tele.No events Objective Last 24 Hour Vital Signs Date Time Temp Pulse Resp B/P (MAP) Pulse Ox O2 Delivery O2 Flow Rate FiO2 07/19/19 09:40 83 126/81 07/19/19 09:00 Room Air 07/19/19 08:00 98.0 83 19 126/81 (96) 97 07/19/19 07:00 83 20 97 Room Air 21 07/19/19 04:00 98.4 80 18 131/69 (89) 94 07/19/19 00:00 97.3 79 18 130/69 (89) 97 07/18/19 21:00 Room Air 07/18/19 20:23 78 103/51 07/18/19 20:00 76 20 94 Room Air 21 07/18/19 20:00 98.6 75 18 122/57 (78) 99 07/18/19 16:00 98.2 81 18 144/72 (96) 98 07/18/19 12:00 98.1 84 20 156/81 (106) 97 Intake and Output 07/18/19 07/19/19 19:00 07:00 Intake Total 325 ml 55 ml Output Total 250 ml 700 ml Balance 75 ml -645 ml Intake Oral 120 ml IV Total 205 ml 55 ml Output Urine Total 250 ml 700 ml # Voids 1 Laboratory Tests Test 07/19/19 05:50 White Blood Count 6.2 K/UL (4.8-10.8) Red Blood Count 3.63 M/UL (4.20-5.40) L Hemoglobin 11.9 G/DL (12.0-16.0) L Hematocrit 34.1 % (37.0-47.0) L Mean Corpuscular Volume 94 FL (80-99) Mean Corpuscular Hemoglobin 32.7 PG (27.0-31.0) H Mean Corpuscular Hemoglobin Concent 34.9 G/DL (32.0-36.0) Red Cell Distribution Width 11.6 % (11.6-14.8) Platelet Count 112 K/UL (150-450) L Mean Platelet Volume 9.5 FL (6.5-10.1) Neutrophils (%) (Auto) 70.5 % (45.0-75.0) Lymphocytes (%) (Auto) 16.4 % (20.0-45.0) L Monocytes (%) (Auto) 9.7 % (1.0-10.0) Eosinophils (%) (Auto) 2.4 % (0.0-3.0) Basophils (%) (Auto) 1.0 % (0.0-2.0) Sodium Level 143 MMOL/L (136-145) Potassium Level 3.6 MMOL/L (3.5-5.1) Chloride Level 112 MMOL/L (98-107) H Carbon Dioxide Level 20 MMOL/L (21-32) L Anion Gap 11 mmol/L (5-15) Blood Urea Nitrogen 29 mg/dL (7-18) H Creatinine 1.8 MG/DL (0.55-1.30) H Estimat Glomerular Filtration Rate 26.7 mL/min (>60) Glucose Level 219 MG/DL (74-106) H Hemoglobin A1c 10.4 % (4.3-6.0) H Calcium Level 9.1 MG/DL (8.5-10.1) Phosphorus Level 3.1 MG/DL (2.5-4.9) Magnesium Level 2.1 MG/DL (1.8-2.4) Microbiology Date/Time Source Procedure Growth Status 07/16/19 21:20 Nasal Nares MRSA Culture - Final Staphylococcus Aureus - Mrsa Complete 07/16/19 21:20 Rectum VRE Culture - Final Enterococcus Faecium - Vre Complete Objective HEAD AND NECK: No JVD. LUNGS: Clear. CARDIOVASCULAR: Irregular S1 and S2 with no gallop. ABDOMEN: Soft. EXTREMITIES: No pitting edema. 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 Vladimir Macias MD Jul 19, 2019 11:56
[2019-07-19 12:00] VITALS: BP 132/78
--- NOTE | 2019-07-19 12:34 | NUR ---
NOTES: REFERRED FOR SWALLOW EVAL BY DR WATSON (PRIMARY MD DR LÓPEZ) DYSPHAGIA AND ASPIRATION RISK FACTORS FOR THIS 88 Y.O. MONGOLIAN-SPEAKING FEMALE: ACUTE ISSUES: ABNORMAL LABS, HYPERGLYCEMIA (POORLY CONTROLLED DM),UTI, ARF, AMS (ENCEPHALOPATHY) CXR CURRENT 07/17 NEG ACUTE HAS CARDIOMEGALY AND CHRONIC CHANGES BILATERAL UPPER LUNGS. ON ROOM AIR SP02 94 LOW TO 97 AND RESP RATE 18-20 BPM. 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 [facility] SOFT CHOPPED AND THIN LIQUIDS CARDIAC, LOW NA, LF 1800 CALORIE NOW ON CCHO-MED [facility] SOFT GROUND AND THIN LIQUIDS (PER RN PT COUGHED INCONSISTENTLY ON THIN LIQUIDS). INTAKE POOR WITH 0 TO 25/50%. PER RD ADD GLUCERNA TID AND LIBERALIZE DIET (NO NEED FOR CCHO-MED DUE TO POOR INTAKE). PER RN, JI, NO OVERT ASPIRATION WITH CRUSHED MEDS WITH APPLESAUCE. ALERT ONLY WITH VERBAL CUES. PATIENT NONVERBAL. POOR FOLLOWING ORAL COMMANDS EVEN WITH VISUAL CUES. POOR AND MISSING DENTITION. RESP RATE GOOD 18-20 BPM AND SP02 RANGE 94 LOW AND 97 (PER MEDICAL RECORD). 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 GIVEN NECTAR THICK LIQUIDS VIA STRAW SEQUENTIAL SIPS, SWALLOWED 1/2 CUP W/O ORAL RESIDUE, ORAL SPILLAGE, NOR OVERT ASPIRATION (RESP RATE AT BASELINE 20 BPM). GIVEN PUREED TSP, CHEWED UNNECESSARILY FOR 8 SECONDS (LIKELY ORAL AWARENESS/SENSATION DEFICITS), SWALLOWED WITH FAIR HYOLARYNGEAL EXCURSION, NO ORAL RESIDUE NOR OVERT ASPIRATION. NO SOB. WILL HOLD OFF ON MASTICATED SOLIDS SINCE SHE APPEARS WEAK AND TIRED AND IT TAKES A LONG TIME FOR HER TO CONSUME PUREED. POOR AND SLOW INTAKE (MALNUTRITION/DEHYRATION RISK) RECOMMENDATIONS: CONSIDER MODIFIED BARIUM SWALLOW STUDY MBSS IP OR OP OF DC TO FURTHER ASSESS SWALLOW, DETERMINE SILENT ASP RISK/ETIOLOGY, AND ATTEMPT TRIAL TX TECHNIQUES. IF PO CONTINUES FOR QUALITY OF LIFE, CONSIDER DOWNGRADING TO MOIST PUREED AND NECTAR THICK LIQUIDS WITH POSTED ASPIRATION PRECAUTIONS AND ONE TO ONE FEEDING. PER RD LIBERALIZE DIET (NO NEED FOR CCHO-MED FOR NOW) DUE TO POOR INTAKE AND SEND GLUCERNA ONE CAN TID. SMALL FREQUENT MEALS TAKE OFF HIGH LINO SUP AND GIVE SIPS THROUGHOUT THE DAY. SKILLED DYSPHAGIA MANAGEMENT AND TX AND COG-COM EVAL/TX (APHASIA FOR COMMUNICATION TIPS) EDUCATED/TRAINED RN/JI AND BUDGET TECHNICIAN/ELHAM IN POSTED ASPIRATION PRECAUTIONS
--- NOTE | 2019-07-19 13:10 | NUR ---
RD ASSESSMENT & RECOMMENDATIONS SEE CARE ACTIVITY FOR COMPLETE ASSESSMENT DAILY ESTIMATED NEEDS: Needs based on DM, wound 53kg 25-35 kcals/kg 0021-5738 total kcals 1.25-1.5 g protein/kg 66-80 g total protein 25-30ml/kcal mL/kg 3955-6848 total fluid mLs NUTRITION DIAGNOSIS: Altered nutrition related lab values r/t diabetes as evidenced by A1C 10, BG >1000 on adm-> now improved. CURRENT DIET:REGULAR, pureed moist w/ NTL PO DIET RECOMMENDATIONS: With poor po intake, rec Liberalized Regular diet, texture per FUSING MACHINE FEEDER ADDITIONAL RECOMMENDATIONS: 1) Add Glucerna TID w/ meals 2) Wound care: if tolerated, rec LINDA Fruit punch BID + MVI x 1 and Vit C 250mg daily 3) Obtain a calibrated bed scale wt 4) Monitor BGs closely for hypoglycemia w/ poor PO -> monitor need for added D5
--- NOTE | 2019-07-19 13:43 | NUR ---
NURSE NOTES: PT ALERT TO NAME ONLY. AROUSABLE TO VOICE AND LIGHT SHAKING. NO S/S PAIN AND DENIES PAIN AT THIS TIME. PT IN SEMI-SAUNDERS'S POSITION WITH HOB ELEVATED. RIGHT UPPER EXTREMITY CONTRACTED. IN NO APPARENT DISTRESS AT THIS TIME. BED IN LOWEST POSITION WITH BEDSIDE RAILS X3 RAISED. BILATERAL SOFT WRIST RESTRAINTS ON PT. NO SWELLING OR SKIN ISSUES NOTED ON BILATERAL WRISTS. RADIAL PULSES PALPABLE ON BOTH WRISTS. BED ALARM ON. WILL CONTINUE TO MONITOR.
--- NOTE | 2019-07-19 13:49 | Surgery Progress Note ---
Surgery Progress Note Subjective Procedure Performed Right femoral temporary hemodialysis catheter removal Additional Comments no acute events comfortable stable no hematoma no bleeding site okay Objective Last 24 Hour Vital Signs Date Time Temp Pulse Resp B/P (MAP) Pulse Ox O2 Delivery O2 Flow Rate FiO2 07/19/19 12:00 98.0 85 18 132/78 (96) 97 07/19/19 09:40 83 126/81 07/19/19 09:00 Room Air 07/19/19 08:00 98.0 83 19 126/81 (96) 97 07/19/19 07:00 83 20 97 Room Air 21 07/19/19 04:00 98.4 80 18 131/69 (89) 94 07/19/19 00:00 97.3 79 18 130/69 (89) 97 07/18/19 21:00 Room Air 07/18/19 20:23 78 103/51 07/18/19 20:00 76 20 94 Room Air 21 07/18/19 20:00 98.6 75 18 122/57 (78) 99 07/18/19 16:00 98.2 81 18 144/72 (96) 98 I&O Intake and Output 07/18/19 07/19/19 19:00 07:00 Intake Total 325 ml 55 ml Output Total 250 ml 700 ml Balance 75 ml -645 ml Intake Oral 120 ml IV Total 205 ml 55 ml Output Urine Total 250 ml 700 ml # Voids 1 Dressing: dry Wound: clean Cardiovascular: RSR Respiratory: clear Abdomen: soft, non-tender, present bowel sounds Extremities: no edema, no tenderness, no cyanosis Laboratory Tests Test 07/19/19 05:50 White Blood Count 6.2 K/UL (4.8-10.8) Red Blood Count 3.63 M/UL (4.20-5.40) L Hemoglobin 11.9 G/DL (12.0-16.0) L Hematocrit 34.1 % (37.0-47.0) L Mean Corpuscular Volume 94 FL (80-99) Mean Corpuscular Hemoglobin 32.7 PG (27.0-31.0) H Mean Corpuscular Hemoglobin Concent 34.9 G/DL (32.0-36.0) Red Cell Distribution Width 11.6 % (11.6-14.8) Platelet Count 112 K/UL (150-450) L Mean Platelet Volume 9.5 FL (6.5-10.1) Neutrophils (%) (Auto) 70.5 % (45.0-75.0) Lymphocytes (%) (Auto) 16.4 % (20.0-45.0) L Monocytes (%) (Auto) 9.7 % (1.0-10.0) Eosinophils (%) (Auto) 2.4 % (0.0-3.0) Basophils (%) (Auto) 1.0 % (0.0-2.0) Sodium Level 143 MMOL/L (136-145) Potassium Level 3.6 MMOL/L (3.5-5.1) Chloride Level 112 MMOL/L (98-107) H Carbon Dioxide Level 20 MMOL/L (21-32) L Anion Gap 11 mmol/L (5-15) Blood Urea Nitrogen 29 mg/dL (7-18) H Creatinine 1.8 MG/DL (0.55-1.30) H Estimat Glomerular Filtration Rate 26.7 mL/min (>60) Glucose Level 219 MG/DL (74-106) H Hemoglobin A1c 10.4 % (4.3-6.0) H Calcium Level 9.1 MG/DL (8.5-10.1) Phosphorus Level 3.1 MG/DL (2.5-4.9) Magnesium Level 2.1 MG/DL (1.8-2.4) Plan Problems: (1) Elevated troponin (2) Elevated LFTs (3) Hyperkalemia Assessment & Plan: Calcium Dextrose insulin as needed Urgent hemodialysis discussed with texture artist labs improved discussed with nephro will monitor hold line (4) ARF (acute renal failure) (5) Encephalopathy acute (6) Acute delirium (7) Sepsis Assessment & Plan: Hyperglycemia, hyperkalemia, renal insufficiency. EKG with peaked T waves abnormal Emergent dialysis indicated recommended Complete examination performed chart reviewed discussion had with patient's family regards to history discussion had with primary care physician texture artist Emergency hemodialysis catheter insertion temporary indicated recommended Please see procedure note We will follow with recommendations thank you for let me participate patient's care improved resuscitating well stable line removed see note (8) UTI (urinary tract infection) (9) Altered level of consciousness (10) Uncontrolled type 2 diabetes mellitus with hyperosmolar nonketotic hyperglycemia Gilberto Donovan Jul 19, 2019 13:49
--- NOTE | 2019-07-19 15:00 | NUR ---
NURSE NOTES: PT WAS SEEN BY SPEECH THERAPIST, WITH NEW ORDER TO CHANGE TO NECTAR THICK LIQUIDS. PT OFFERED NECTAR THICK LIQUIDS AND PT DRINKS WELL. NO COUGHING NOTED. PT ABLE TO FOLLOW SIMPLE DIRECTIONS BUT CONTINUES ATTEMPTS TO PULL OUT IV ACCESSES WHEN RESTRAINTS ARE TAKEN OUT FOR REPOSITIONING AND HYGIENE CARE. PT HAS PULLED OUT IV ACCESSES PREVIOUSLY. WILL CONTINUE TO MONITOR.
--- NOTE | 2019-07-19 15:20 | General Progress Note ---
Assessment/Plan Problem List: (1) Uncontrolled type 2 diabetes mellitus with hyperosmolar nonketotic hyperglycemia ICD Codes: E11.00 - Type 2 diabetes mellitus with hyperosmolarity without nonketotic hyperglycemic-hyperosmolar coma ([facility]) SNOMED: 63454405, 695549199, 551793826 (2) ARF (acute renal failure) ICD Codes: N17.9 - Acute kidney failure, unspecified SNOMED: 84417573, 799259606, 004706199 (3) Sepsis ICD Codes: A41.9 - Sepsis SNOMED: 70021720 (4) Acute delirium ICD Codes: R41.0 - Disorientation, unspecified SNOMED: 3803052 Assessment/Plan: continue Levemir 12 units daily continue Novolog 4 units ac tid + SSI hypoglycemia protocol in order Subjective Allergies: Coded Allergies: NO KNOWN ALLERGIES (Unverified Allergy, Unknown, 12/09/14) Subjective events noted interval notes reviewed glucose values improved Item Value Date Time Bedside Blood Glucose 87 mg/dl 07/19/19 1121 Bedside Blood Glucose 213 mg/dl H 07/19/19 0954 Bedside Blood Glucose 213 mg/dl H 07/19/19 0623 Bedside Blood Glucose 220 mg/dl H 07/18/19 2100 Bedside Blood Glucose 83 mg/dl 07/18/19 1641 Bedside Blood Glucose 137 mg/dl H 07/18/19 1158 Bedside Blood Glucose 111 mg/dl 07/18/19 0902 Objective Last 24 Hour Vital Signs Date Time Temp Pulse Resp B/P (MAP) Pulse Ox O2 Delivery O2 Flow Rate FiO2 07/19/19 12:00 98.0 85 18 132/78 (96) 97 07/19/19 09:40 83 126/81 07/19/19 09:00 Room Air 07/19/19 08:00 98.0 83 19 126/81 (96) 97 07/19/19 07:00 83 20 97 Room Air 21 07/19/19 04:00 98.4 80 18 131/69 (89) 94 07/19/19 00:00 97.3 79 18 130/69 (89) 97 07/18/19 21:00 Room Air 07/18/19 20:23 78 103/51 07/18/19 20:00 76 20 94 Room Air 21 07/18/19 20:00 98.6 75 18 122/57 (78) 99 4/13/20 16:00 98.2 81 18 144/72 (96) 98 Intake and Output 07/18/19 07/19/19 19:00 07:00 Intake Total 325 ml 55 ml Output Total 250 ml 700 ml Balance 75 ml -645 ml Intake Oral 120 ml IV Total 205 ml 55 ml Output Urine Total 250 ml 700 ml # Voids 1 Laboratory Tests 07/19/19 05:50: White Blood Count 6.2, Red Blood Count 3.63L, Hemoglobin 11.9L, Hematocrit 34.1L , Mean Corpuscular Volume 94, Mean Corpuscular Hemoglobin 32.7H, Mean Corpuscular Hemoglobin Concent 34.9, Red Cell Distribution Width 11.6, Platelet Count 112L, Mean Platelet Volume 9.5, Neutrophils (%) (Auto) 70.5, Lymphocytes ( %) (Auto) 16.4L, Monocytes (%) (Auto) 9.7, Eosinophils (%) (Auto) 2.4, Basophils (%) (Auto) 1.0, Sodium Level 143, Potassium Level 3.6, Chloride Level 112H, Carbon Dioxide Level 20L, Anion Gap 11, Blood Urea Nitrogen 29H, Creatinine 1.8H, Estimat Glomerular Filtration Rate 26.7, Glucose Level 219H, Hemoglobin A1c 10.4H, Calcium Level 9.1, Phosphorus Level 3.1, Magnesium Level 2.1 Height (Feet): 5 Height (Inches): 5.00 Weight (Pounds): 134 General Appearance: no apparent distress Neck: normal alignment Cardiovascular: normal rate Respiratory/Chest: lungs clear Abdomen: normal bowel sounds Pelvis: normal external exam Objective Current Medications Medications (Trade) Dose Ordered Sig/Jaylen Route PRN Reason Start Time Stop Time Status Last Admin Dose Admin Acetaminophen (Tylenol) 650 mg Q4H PRN ORAL Mild Pain (Pain Scale 1-3) 07/17/19 00:45 08/14/19 16:44 Albuterol/ Ipratropium (Albuterol/ Ipratropium) 3 ml Q4H PRN HHN Shortness of Breath 07/17/19 00:45 07/20/19 16:44 Apixaban (Eliquis) 2.5 mg BID ORAL 07/17/19 09:00 10/14/19 17:59 07/19/19 09:39 Atorvastatin Calcium (Lipitor) 80 mg BEDTIME ORAL 07/17/19 21:00 10/14/19 20:59 07/18/19 20:21 Cefepime HCl 1 gm/ Dextrose 55 ml @ 110 mls/hr Q12H IVPB 07/17/19 01:00 07/23/19 12:59 07/19/19 12:40 Chlorhexidine Gluconate (Ailyn-Hex 2%) 1 applic DAILY@2000 TOPIC 07/17/19 20:00 10/14/19 19:59 07/17/19 20:15 Dextrose (Dextrose 50%) 25 ml Q30M PRN IV Hypoglycemia 07/16/19 23:15 10/14/19 01:14 Dextrose (Dextrose 50%) 50 ml Q30M PRN IV Hypoglycemia 07/16/19 23:15 10/14/19 01:14 Docusate Sodium (Colace) 100 mg EVERY 12 HOURS ORAL 07/17/19 09:00 08/14/19 20:59 07/19/19 09:38 Insulin Aspart (NovoLOG) BEFORE MEALS AND HS SUBQ 07/17/19 06:30 10/14/19 06:29 07/19/19 06:15 Insulin Aspart (NovoLOG) 4 units NOVOTIAC SUBQ 07/17/19 11:50 10/14/19 06:29 07/19/19 06:15 Insulin Detemir (Levemir) 12 units DAILY SUBQ 07/17/19 09:00 10/14/19 13:44 07/19/19 09:54 Metoprolol Tartrate (Lopressor) 50 mg Q12HR ORAL 07/18/19 21:00 10/14/19 20:59 07/19/19 09:40 Ondansetron HCl (Zofran) 4 mg Q6H PRN IVP Nausea & Vomiting 07/17/19 22:55 08/14/19 22:54 Sitagliptin Phosphate (Januvia) 25 mg ACBREAKFAST ORAL 07/17/19 06:30 08/15/19 13:44 07/19/19 06:14 Lucio North MD Jul 19, 2019 15:20
[2019-07-19 16:00] VITALS: BP 133/80
--- NOTE | 2019-07-19 17:13 | NUR ---
PT note PT jacqueline completed, treatment initiated. Patient has muscle weakness, poor sitting balance, decreased right UE ROM, requiring extensive assist in mobility. Patient needs PT to increase muscle strength and balance to improve her functional mobility. Addendum: 07/19/19 at 1713 by FRANCE ZULETA PT Amended: Links added.
--- NOTE | 2019-07-19 18:14 | Infectious Diseases Prog Note ---
Assessment/Plan Assessment/Plan ASSESSMENT AND PLAN: 1. klebsiella uti, sepsis, leukocytosis, chest x-ray negative - ceftriaxone - day # 4 abx, plan on 10 day course antibiotics - can transition to oral keflex 500 mg po bid if needed for remainder of antibiotic course - monitor labs - clinically stable 2. Acute renal failure, possible hemodialysis. 3. Hypernatremia. 4. Renal follow-up. 5. MRSA colonization. 6. Klebsiella UTI with sepsis. 7. DOAC. 8. Atrial fibrillation. 9. CVA. 10. Dementia. 11. Hypertension. 12. Hyperlipidemia. 13. Diabetes. 14. Encephalopathy. 15. Continue treatment per primary consult. 16. No known drug allergies. 17. Social history is negative. 18. Family history is noncontributory. 19. MAR was noted. 20. Case discussed with RN. 21. The patient has history of what looks like wounds, but they look fairly stable, looks like a small wound in the sacrococcyx area that is not infected. 22. mrsa and vre colonization and isolation Subjective Constitutional: Reports: fatigue; Denies: fever HEENT: Denies: congestion Respiratory: Denies: shortness of breath Cardiovascular: Denies: chest pain Gastrointestinal/Abdominal: Denies: nausea, vomiting, diarrhea Genitourinary: Reports: other - no dewey Neurologic: Denies: headache Psychiatric: Denies: depression Skin: Denies: rash Hematologic: Denies: bleeding Musculoskeletal: Denies: pain Allergies: Coded Allergies: NO KNOWN ALLERGIES (Unverified Allergy, Unknown, 12/09/14) Objective Vital Signs Last 24 Hour Vital Signs Date Time Temp Pulse Resp B/P (MAP) Pulse Ox O2 Delivery O2 Flow Rate FiO2 07/19/19 16:00 98.4 87 18 133/80 (97) 98 07/19/19 12:00 98.0 85 18 132/78 (96) 97 07/19/19 09:40 83 126/81 07/19/19 09:00 Room Air 07/19/19 08:00 98.0 83 19 126/81 (96) 97 07/19/19 07:00 83 20 97 Room Air 21 07/19/19 04:00 98.4 80 18 131/69 (89) 94 07/19/19 00:00 97.3 79 18 130/69 (89) 97 07/18/19 21:00 Room Air 07/18/19 20:23 78 103/51 07/18/19 20:00 76 20 94 Room Air 21 07/18/19 20:00 98.6 75 18 122/57 (78) 99 Height (Feet): 5 Height (Inches): 5.00 Weight (Pounds): 134 General Appearance: no acute distress HEENT: normocephalic, atraumatic, anicteric, mucous membranes moist Respiratory/Chest: lungs clear, normal breath sounds, no respiratory distress, no accessory muscle use Cardiovascular: normal rate, regular rhythm, no gallop/murmur, no JVD Abdomen: normal bowel sounds, soft, non tender, no organomegaly, non distended Genitourinary: other - no dewey Extremities: no cyanosis Skin: no rash Neurologic/Psychiatric: 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 Scarring and volume loss in the right lung apex are again demonstrated. Calcifications are again demonstrated in the left lung apex. Lungs and pleural spaces are largely clear. Impression: Cardiomegaly. No definite acute process Evidence of chronic changes in the bilateral upper lungs Microbiology Date/Time Source Procedure Growth Status 07/16/19 21:20 Nasal Nares MRSA Culture - Final Staphylococcus Aureus - Mrsa Complete 07/15/19 15:15 Urine,Clean Catch Urine Culture - Final Klebsiella Pneumoniae Complete 07/16/19 21:20 Rectum VRE Culture - Final Enterococcus Faecium - Vre Complete Microbiology Date/Time Source Procedure Growth Status 07/16/19 21:20 Nasal Nares MRSA Culture - Final Staphylococcus Aureus - Mrsa Complete 07/16/19 21:20 Rectum VRE Culture - Final Enterococcus Faecium - Vre Complete Laboratory Tests Test 07/19/19 05:50 White Blood Count 6.2 K/UL (4.8-10.8) Red Blood Count 3.63 M/UL (4.20-5.40) L Hemoglobin 11.9 G/DL (12.0-16.0) L Hematocrit 34.1 % (37.0-47.0) L Mean Corpuscular Volume 94 FL (80-99) Mean Corpuscular Hemoglobin 32.7 PG (27.0-31.0) H Mean Corpuscular Hemoglobin Concent 34.9 G/DL (32.0-36.0) Red Cell Distribution Width 11.6 % (11.6-14.8) Platelet Count 112 K/UL (150-450) L Mean Platelet Volume 9.5 FL (6.5-10.1) Neutrophils (%) (Auto) 70.5 % (45.0-75.0) Lymphocytes (%) (Auto) 16.4 % (20.0-45.0) L Monocytes (%) (Auto) 9.7 % (1.0-10.0) Eosinophils (%) (Auto) 2.4 % (0.0-3.0) Basophils (%) (Auto) 1.0 % (0.0-2.0) Sodium Level 143 MMOL/L (136-145) Potassium Level 3.6 MMOL/L (3.5-5.1) Chloride Level 112 MMOL/L (98-107) H Carbon Dioxide Level 20 MMOL/L (21-32) L Anion Gap 11 mmol/L (5-15) Blood Urea Nitrogen 29 mg/dL (7-18) H Creatinine 1.8 MG/DL (0.55-1.30) H Estimat Glomerular Filtration Rate 26.7 mL/min (>60) Glucose Level 219 MG/DL (74-106) H Hemoglobin A1c 10.4 % (4.3-6.0) H Calcium Level 9.1 MG/DL (8.5-10.1) Phosphorus Level 3.1 MG/DL (2.5-4.9) Magnesium Level 2.1 MG/DL (1.8-2.4) Current Medications Medications (Trade) Dose Ordered Sig/Jaylen Route PRN Reason Start Time Stop Time Status Last Admin Dose Admin Acetaminophen (Tylenol) 650 mg Q4H PRN ORAL Mild Pain (Pain Scale 1-3) 07/17/19 00:45 08/14/19 16:44 Albuterol/ Ipratropium (Albuterol/ Ipratropium) 3 ml Q4H PRN HHN Shortness of Breath 07/17/19 00:45 07/20/19 16:44 Apixaban (Eliquis) 2.5 mg BID ORAL 07/17/19 09:00 10/14/19 17:59 07/19/19 17:17 Atorvastatin Calcium (Lipitor) 80 mg BEDTIME ORAL 07/17/19 21:00 10/14/19 20:59 07/18/19 20:21 Cefepime HCl 1 gm/ Sodium Chloride 55 ml @ 110 mls/hr Q12H IVPB 07/20/19 01:00 07/23/19 12:59 Chlorhexidine Gluconate (Ailyn-Hex 2%) 1 applic DAILY@2000 TOPIC 07/17/19 20:00 10/14/19 19:59 07/17/19 20:15 Dextrose (Dextrose 50%) 25 ml Q30M PRN IV Hypoglycemia 07/16/19 23:15 10/14/19 01:14 Dextrose (Dextrose 50%) 50 ml Q30M PRN IV Hypoglycemia 07/16/19 23:15 10/14/19 01:14 Docusate Sodium (Colace) 100 mg EVERY 12 HOURS ORAL 07/17/19 09:00 08/14/19 20:59 07/19/19 09:38 Insulin Aspart (NovoLOG) BEFORE MEALS AND HS SUBQ 07/17/19 06:30 10/14/19 06:29 07/19/19 17:24 Insulin Aspart (NovoLOG) 4 units NOVOTIAC SUBQ 07/17/19 11:50 10/14/19 06:29 07/19/19 16:50 Insulin Detemir (Levemir) 12 units DAILY SUBQ 07/17/19 09:00 10/14/19 13:44 07/19/19 09:54 Metoprolol Tartrate (Lopressor) 50 mg Q12HR ORAL 07/18/19 21:00 10/14/19 20:59 07/19/19 09:40 Ondansetron HCl (Zofran) 4 mg Q6H PRN IVP Nausea & Vomiting 07/17/19 22:55 08/14/19 22:54 Sitagliptin Phosphate (Januvia) 25 mg ACBREAKFAST ORAL 07/17/19 06:30 08/15/19 13:44 07/19/19 06:14 Maryanne Bhatti MD Jul 19, 2019 18:14
--- NOTE | 2019-07-19 19:21 | NUR ---
HAND-OFF: Report given to Cyril WILHELM RN.
[2019-07-19 20:00] VITALS: BP 112/56
[2019-07-19] MEDS: Dyna-Hex 2% Top Sol 2oz TOPIC SCH (20:00)
[2019-07-19] MEDS ORDERED: cefTRIAXone 1 GM in D5W 50 ML IVPB SCH (20:00)
--- NOTE | 2019-07-19 20:41 | Neurology Progress Note ---
Interim History Interim History ROS Limited/Unobtainable: No Interim History confused, moving in bed, less distress Objective Physical Exam Last Vital Signs Date Time Temp Pulse Resp B/P (MAP) Pulse Ox O2 Delivery O2 Flow Rate FiO2 07/19/19 16:00 98.4 87 18 133/80 (97) 98 07/19/19 09:00 Room Air 07/19/19 07:00 21 Laboratory Tests Test 07/19/19 05:50 White Blood Count 6.2 K/UL (4.8-10.8) Red Blood Count 3.63 M/UL (4.20-5.40) L Hemoglobin 11.9 G/DL (12.0-16.0) L Hematocrit 34.1 % (37.0-47.0) L Mean Corpuscular Volume 94 FL (80-99) Mean Corpuscular Hemoglobin 32.7 PG (27.0-31.0) H Mean Corpuscular Hemoglobin Concent 34.9 G/DL (32.0-36.0) Red Cell Distribution Width 11.6 % (11.6-14.8) Platelet Count 112 K/UL (150-450) L Mean Platelet Volume 9.5 FL (6.5-10.1) Neutrophils (%) (Auto) 70.5 % (45.0-75.0) Lymphocytes (%) (Auto) 16.4 % (20.0-45.0) L Monocytes (%) (Auto) 9.7 % (1.0-10.0) Eosinophils (%) (Auto) 2.4 % (0.0-3.0) Basophils (%) (Auto) 1.0 % (0.0-2.0) Sodium Level 143 MMOL/L (136-145) Potassium Level 3.6 MMOL/L (3.5-5.1) Chloride Level 112 MMOL/L (98-107) H Carbon Dioxide Level 20 MMOL/L (21-32) L Anion Gap 11 mmol/L (5-15) Blood Urea Nitrogen 29 mg/dL (7-18) H Creatinine 1.8 MG/DL (0.55-1.30) H Estimat Glomerular Filtration Rate 26.7 mL/min (>60) Glucose Level 219 MG/DL (74-106) H Hemoglobin A1c 10.4 % (4.3-6.0) H Calcium Level 9.1 MG/DL (8.5-10.1) Phosphorus Level 3.1 MG/DL (2.5-4.9) Magnesium Level 2.1 MG/DL (1.8-2.4) Head: normocophalic Neck: no rigidity EENT: benign Neurologic Exam Objective somnolent, open eyes to pain right spastic hemiparesis cc 36 min Impression/Recommendations Problems: (1) Elevated troponin (2) Elevated LFTs (3) Acute delirium (4) Sepsis (5) Altered level of consciousness (6) Uncontrolled type 2 diabetes mellitus with hyperosmolar nonketotic hyperglycemia (7) ARF (acute renal failure) (8) Encephalopathy acute (9) UTI (urinary tract infection) (10) Hyperkalemia Diagnostic Impression acute encephalopathy hx of advanced dementia Right spastic hemiparesis Sepsis Cultures pending atb broad spectrum hold namenda hold sedating Christopher Alvarez MD Jul 19, 2019 20:41
[2019-07-19] MEDS: cefTRIAXone 1 GM in NS 55 ML IVPB SCH (21:04)
[2019-07-19] MEDS: Atorvastatin 80mg tab ORAL SCH (21:04)
[2019-07-20 00:31] VITALS: BP 146/86
[2019-07-20] MEDS ORDERED: Cefepime HCl 1 GM in NS 55 ML IVPB SCH (01:00)
[2019-07-20 04:17] VITALS: BP 151/82
[2019-07-20] MEDS: sitaGLIPtin 25mg tab ORAL SCH (06:20)
[2019-07-20 06:21] LABS: EOSINOPHILS % (AUTO) 1.5 % (0.0-3.0); HEMATOCRIT 31.7 % (37.0-47.0); HEMOGLOBIN 11.4 G/DL (12.0-16.0); LYMPHOCYTES % (AUTO) 22.1 % (20.0-45.0); MEAN CORPUSCULAR VOLUME 92 FL (80-99); MONOCYTES % (AUTO) 9.1 % (1.0-10.0); NEUTROPHILS % (AUTO) 66.2 % (45.0-75.0); PLATELET COUNT 112 K/UL (150-450); RED BLOOD COUNT 3.42 M/UL (4.20-5.40); RED CELL DISTRIBUTION WIDTH 11.6 % (11.6-14.8); WHITE BLOOD COUNT 8.9 K/UL (4.8-10.8)
[2019-07-20] MEDS: NovoLOG Insulin Flexpen SUBQ SCH ×7 (06:21→21:00)
[2019-07-20 06:36] LABS: ANION GAP 16 mmol/L (5-15); BLOOD UREA NITROGEN 29 mg/dL (7-18); CALCIUM 9.4 MG/DL (8.5-10.1); CARBON DIOXIDE 18 MMOL/L (21-32); CHLORIDE 114 MMOL/L (98-107); CREATININE 1.8 MG/DL (0.55-1.30); POTASSIUM 3.7 MMOL/L (3.5-5.1); SODIUM 148 MMOL/L (136-145)
--- NOTE | 2019-07-20 07:18 | NUR ---
HAND-OFF: Report given to KAREN Orantes.
--- NOTE | 2019-07-20 07:28 | NUR ---
NURSE NOTES: Report received from Isamar JONES. Patient seen on rounds, AxOx1, confused. Not in distress, no outward sx of pain. PIV on left AC patent and intact. Bilateral soft wrist restraints secured, good circulation noted. Bed low and locked, siderails up x 3, zone alarms on zone 1, will do frequent visual rounds.
[2019-07-20 08:00] VITALS: BP 144/62
[2019-07-20] MEDS: Docusate 100mg cap ORAL SCH ×2 (08:31→20:28)
[2019-07-20] MEDS: Metoprolol Tartrate 50mg tab ORAL SCH ×2 (08:31→20:29)
[2019-07-20] MEDS: Eliquis 2.5mg tablet ORAL SCH ×2 (08:31→17:28)
[2019-07-20] MEDS: Levemir Flexpen SUBQ SCH (08:33)
--- NOTE | 2019-07-20 09:03 | General Progress Note ---
Assessment/Plan Problem List: (1) Uncontrolled type 2 diabetes mellitus with hyperosmolar nonketotic hyperglycemia ICD Codes: E11.00 - Type 2 diabetes mellitus with hyperosmolarity without nonketotic hyperglycemic-hyperosmolar coma ([facility]) SNOMED: 89239485, 619116007, 335405635 (2) ARF (acute renal failure) ICD Codes: N17.9 - Acute kidney failure, unspecified SNOMED: 85076739, 636297721, 115883732 (3) Sepsis ICD Codes: A41.9 - Sepsis SNOMED: 27147656 (4) Acute delirium ICD Codes: R41.0 - Disorientation, unspecified SNOMED: 2074435 Assessment/Plan: continue Levemir 12 units daily hold Novolog 4 units ac tid if not eating continue Novolog sliding scale ac / hs continue Januvia 25 mg daily hypoglycemia protocol in order Subjective ROS Limited/Unobtainable: Yes Allergies: Coded Allergies: NO KNOWN ALLERGIES (Unverified Allergy, Unknown, 12/09/14) Subjective events noted interval notes reviewed glucose values improved confused Item Value Date Time Bedside Blood Glucose 104 mg/dl 07/20/19 0833 Glucose Level 124 MG/DL H 07/20/19 0600 Bedside Blood Glucose 183 mg/dl H 07/19/19 1724 Bedside Blood Glucose 87 mg/dl 07/19/19 1121 Bedside Blood Glucose 213 mg/dl H 07/19/19 0954 Bedside Blood Glucose 213 mg/dl H 07/19/19 0623 Objective Last 24 Hour Vital Signs Date Time Temp Pulse Resp B/P (MAP) Pulse Ox O2 Delivery O2 Flow Rate FiO2 07/20/19 08:31 85 144/62 07/20/19 08:00 98.6 85 19 144/62 (89) 99 07/20/19 04:17 98.2 90 20 151/82 (105) 98 07/20/19 00:31 98.2 88 20 146/86 (106) 93 07/19/19 21:26 Room Air 07/19/19 21:00 72 112/56 07/19/19 20:00 98.1 72 18 112/56 (74) 97 07/19/19 20:00 78 18 93 Room Air 21 07/19/19 16:00 98.4 87 18 133/80 (97) 98 07/19/19 12:00 98.0 85 18 132/78 (96) 97 07/19/19 09:40 83 126/81 Intake and Output 07/19/19 07/20/19 19:00 07:00 Intake Total 55 ml 200 ml Output Total 400 ml Balance 55 ml -200 ml Intake Oral 200 ml IV Total 55 ml Output Urine Total 400 ml # Voids 1 Laboratory Tests 07/20/19 06:00: White Blood Count 8.9, Red Blood Count 3.42L, Hemoglobin 11.4L, Hematocrit 31.7L , Mean Corpuscular Volume 92, Mean Corpuscular Hemoglobin 33.2H, Mean Corpuscular Hemoglobin Concent 35.9, Red Cell Distribution Width 11.6, Platelet Count 112L, Mean Platelet Volume 9.1, Neutrophils (%) (Auto) 66.2, Lymphocytes ( %) (Auto) 22.1, Monocytes (%) (Auto) 9.1, Eosinophils (%) (Auto) 1.5, Basophils (%) (Auto) 1.0, Sodium Level 148H, Potassium Level 3.7, Chloride Level 114H, Carbon Dioxide Level 18L, Anion Gap 16H, Blood Urea Nitrogen 29H, Creatinine 1.8H, Estimat Glomerular Filtration Rate 26.7, Glucose Level 124H, Calcium Level 9.4 Height (Feet): 5 Height (Inches): 5.00 Weight (Pounds): 138 General Appearance: confused Neck: normal alignment Cardiovascular: normal rate Respiratory/Chest: decreased breath sounds Abdomen: normal bowel sounds Pelvis: normal external exam Objective Current Medications Medications (Trade) Dose Ordered Sig/Jaylen Route PRN Reason Start Time Stop Time Status Last Admin Dose Admin Acetaminophen (Tylenol) 650 mg Q4H PRN ORAL Mild Pain (Pain Scale 1-3) 07/17/19 00:45 08/14/19 16:44 Albuterol/ Ipratropium (Albuterol/ Ipratropium) 3 ml Q4H PRN HHN Shortness of Breath 07/17/19 00:45 07/20/19 16:44 Apixaban (Eliquis) 2.5 mg BID ORAL 07/17/19 09:00 10/14/19 17:59 07/20/19 08:31 Atorvastatin Calcium (Lipitor) 80 mg BEDTIME ORAL 07/17/19 21:00 10/14/19 20:59 07/19/19 21:04 Ceftriaxone Sodium 1 gm/ Sodium Chloride 55 ml @ 110 mls/hr Q24H IVPB 07/19/19 20:00 07/26/19 19:59 07/19/19 21:04 Chlorhexidine Gluconate (Ailyn-Hex 2%) 1 applic DAILY@2000 TOPIC 07/17/19 20:00 10/14/19 19:59 07/17/19 20:15 Dextrose (Dextrose 50%) 25 ml Q30M PRN IV Hypoglycemia 07/16/19 23:15 10/14/19 01:14 Dextrose (Dextrose 50%) 50 ml Q30M PRN IV Hypoglycemia 07/16/19 23:15 10/14/19 01:14 Docusate Sodium (Colace) 100 mg EVERY 12 HOURS ORAL 07/17/19 09:00 08/14/19 20:59 07/20/19 08:31 Insulin Aspart (NovoLOG) BEFORE MEALS AND HS SUBQ 07/17/19 06:30 10/14/19 06:29 07/19/19 21:06 Insulin Aspart (NovoLOG) 4 units NOVOTIAC SUBQ 07/17/19 11:50 10/14/19 06:29 07/19/19 16:50 Insulin Detemir (Levemir) 12 units DAILY SUBQ 07/17/19 09:00 10/14/19 13:44 07/20/19 08:33 Metoprolol Tartrate (Lopressor) 50 mg Q12HR ORAL 07/18/19 21:00 10/14/19 20:59 07/20/19 08:31 Ondansetron HCl (Zofran) 4 mg Q6H PRN IVP Nausea & Vomiting 07/17/19 22:55 08/14/19 22:54 Sitagliptin Phosphate (Januvia) 25 mg ACBREAKFAST ORAL 07/17/19 06:30 08/15/19 13:44 07/20/19 06:20 Lucio North MD Jul 20, 2019 09:02
--- NOTE | 2019-07-20 09:56 | Nephrology Progress Note ---
Assessment/Plan Plan #Acute renal failure - susept ATN- likely with baseline CKD? #Hyperkalemia- resolved #hypernatremia #severe Hyperglycemia- HHS #AMS #afib on DOAC #CVA, #dementia #hypertension # hyperlipidemia #diabetes- A1c 10.4 - resume 1/2NS at 75cc/hr - start sodium bicarb 650 TID - monitor BMP, mag, phos, calcium - replete K prn - monitor BG - endocrine eval - continue ceftriaxone - continue statin - continue MTP to 50 BID - Eliquis 2.5 BID I spent 35 minutes on this patient's case, >50% time spent on coordination fo care, pt counseling. Subjective ROS Limited/Unobtainable: Yes Subjective Breathing stable on room air this morning Cr 1.8 sodium uptrending Bp stable Objective Objective Last 24 Hour Vital Signs Date Time Temp Pulse Resp B/P (MAP) Pulse Ox O2 Delivery O2 Flow Rate FiO2 07/20/19 09:00 Room Air 07/20/19 08:31 85 144/62 07/20/19 08:00 98.6 85 19 144/62 (89) 99 07/20/19 04:17 98.2 90 20 151/82 (105) 98 07/20/19 00:31 98.2 88 20 146/86 (106) 93 07/19/19 21:26 Room Air 07/19/19 21:00 72 112/56 07/19/19 20:00 98.1 72 18 112/56 (74) 97 07/19/19 20:00 78 18 93 Room Air 21 07/19/19 16:00 98.4 87 18 133/80 (97) 98 07/19/19 12:00 98.0 85 18 132/78 (96) 97 Intake and Output 07/19/19 07/20/19 19:00 07:00 Intake Total 55 ml 200 ml Output Total 400 ml Balance 55 ml -200 ml Intake Oral 200 ml IV Total 55 ml Output Urine Total 400 ml # Voids 1 Laboratory Tests 07/20/19 06:00: White Blood Count 8.9, Red Blood Count 3.42L, Hemoglobin 11.4L, Hematocrit 31.7L , Mean Corpuscular Volume 92, Mean Corpuscular Hemoglobin 33.2H, Mean Corpuscular Hemoglobin Concent 35.9, Red Cell Distribution Width 11.6, Platelet Count 112L, Mean Platelet Volume 9.1, Neutrophils (%) (Auto) 66.2, Lymphocytes ( %) (Auto) 22.1, Monocytes (%) (Auto) 9.1, Eosinophils (%) (Auto) 1.5, Basophils (%) (Auto) 1.0, Sodium Level 148H, Potassium Level 3.7, Chloride Level 114H, Carbon Dioxide Level 18L, Anion Gap 16H, Blood Urea Nitrogen 29H, Creatinine 1.8H, Estimat Glomerular Filtration Rate 26.7, Glucose Level 124H, Calcium Level 9.4 Height (Feet): 5 Height (Inches): 5.00 Weight (Pounds): 138 Vikki Jackson M.D. Jul 20, 2019 09:56
--- NOTE | 2019-07-20 09:57 | Surgery Progress Note ---
Surgery Progress Note Subjective Procedure Performed Right femoral temporary hemodialysis catheter removal Additional Comments agitated this AM combative during exam no n/v/f/c labs noted electrolytes being replaced Objective Last 24 Hour Vital Signs Date Time Temp Pulse Resp B/P (MAP) Pulse Ox O2 Delivery O2 Flow Rate FiO2 07/20/19 09:00 Room Air 07/20/19 08:31 85 144/62 07/20/19 08:00 98.6 85 19 144/62 (89) 99 07/20/19 04:17 98.2 90 20 151/82 (105) 98 07/20/19 00:31 98.2 88 20 146/86 (106) 93 07/19/19 21:26 Room Air 07/19/19 21:00 72 112/56 07/19/19 20:00 98.1 72 18 112/56 (74) 97 07/19/19 20:00 78 18 93 Room Air 21 07/19/19 16:00 98.4 87 18 133/80 (97) 98 07/19/19 12:00 98.0 85 18 132/78 (96) 97 I&O Intake and Output 07/19/19 07/20/19 19:00 07:00 Intake Total 55 ml 200 ml Output Total 400 ml Balance 55 ml -200 ml Intake Oral 200 ml IV Total 55 ml Output Urine Total 400 ml # Voids 1 Dressing: dry Wound: clean Cardiovascular: RSR Respiratory: decreased breath sounds Abdomen: soft, non-tender, present bowel sounds Extremities: no edema, no tenderness, no cyanosis Laboratory Tests Test 07/20/19 06:00 White Blood Count 8.9 K/UL (4.8-10.8) Red Blood Count 3.42 M/UL (4.20-5.40) L Hemoglobin 11.4 G/DL (12.0-16.0) L Hematocrit 31.7 % (37.0-47.0) L Mean Corpuscular Volume 92 FL (80-99) Mean Corpuscular Hemoglobin 33.2 PG (27.0-31.0) H Mean Corpuscular Hemoglobin Concent 35.9 G/DL (32.0-36.0) Red Cell Distribution Width 11.6 % (11.6-14.8) Platelet Count 112 K/UL (150-450) L Mean Platelet Volume 9.1 FL (6.5-10.1) Neutrophils (%) (Auto) 66.2 % (45.0-75.0) Lymphocytes (%) (Auto) 22.1 % (20.0-45.0) Monocytes (%) (Auto) 9.1 % (1.0-10.0) Eosinophils (%) (Auto) 1.5 % (0.0-3.0) Basophils (%) (Auto) 1.0 % (0.0-2.0) Sodium Level 148 MMOL/L (136-145) H Potassium Level 3.7 MMOL/L (3.5-5.1) Chloride Level 114 MMOL/L (98-107) H Carbon Dioxide Level 18 MMOL/L (21-32) L Anion Gap 16 mmol/L (5-15) H Blood Urea Nitrogen 29 mg/dL (7-18) H Creatinine 1.8 MG/DL (0.55-1.30) H Estimat Glomerular Filtration Rate 26.7 mL/min (>60) Glucose Level 124 MG/DL (74-106) H Calcium Level 9.4 MG/DL (8.5-10.1) Plan Problems: (1) Elevated troponin (2) Elevated LFTs (3) Hyperkalemia Assessment & Plan: Calcium Dextrose insulin as needed Urgent hemodialysis discussed with probation manager labs improved discussed with nephro will monitor hold line (4) ARF (acute renal failure) (5) Encephalopathy acute (6) Acute delirium (7) Sepsis Assessment & Plan: Hyperglycemia, hyperkalemia, renal insufficiency. EKG with peaked T waves abnormal Emergent dialysis indicated recommended Complete examination performed chart reviewed discussion had with patient's family regards to history discussion had with primary care physician probation manager Emergency hemodialysis catheter insertion temporary indicated recommended Please see procedure note We will follow with recommendations thank you for let me participate patient's care improved resuscitating well stable line removed see note improving more alert and responsive. if anything now combative (8) UTI (urinary tract infection) (9) Altered level of consciousness (10) Uncontrolled type 2 diabetes mellitus with hyperosmolar nonketotic hyperglycemia Gilberto Donovan Jul 20, 2019 09:57
--- NOTE | 2019-07-20 10:04 | General Progress Note ---
Assessment/Plan Assessment/Plan: 88 year old woman with history of afib on DOAC, CVA, dementia, hypertension, hyperlipidemia, diabetes who presented to ED with: #Uncontrolled NIDDM, HONK, Hgb A1C 10.4 #TREVOR #Severe hyperkalemia with EKG changes - improved #hypokalemia - improved #Klebsiella UTI -Cont. in-patient medical care -Hgb A1C 10.4 -07/14: S/p right femoral Zeke cath placed by Gen Sx -labs improved, no HD at this time -Nephrology following, recs appreciated -Endocrine following- Levemir 12 U, Novolog 4 U qAC, ISS, stable for d/c -ID: CTX day #5, plan on 10 day course total, can transition to PO Keflex 500 mg PO BID -d/w Nephro, plan to give bicarb, cont. to hold losartan for now, consider restarting tomorrow -will cont. to monitor for one more day, likely d/c tmw w/PO abx #Acute metabolic encephalopathy #Dementia #history of CVA -hold Aricept and Namenda, restart on d/c -Supportive care -Aspiration and fall precautions #Atrial fibrillation #HTN, uncontrolled #PPM -MTP 50 BID -Cont. Eliquis 2.5 BID -Cardio, Dr. Macias following, recs appreciated DVT PPx: Eliquis 2.5 BID Time spent on encounter: 36 mins, 27 mins spent with discussing with Nephro, ID POC and dispo planning. Time of note doesn't reflect time of encounter. Subjective Allergies: Coded Allergies: NO KNOWN ALLERGIES (Unverified Allergy, Unknown, 12/09/14) Subjective F/u for DKA, TREVOR, UTI, afib. Cr. 1.8 for last 3 days, appears stable, likely new baseline. Pt remains confused, likely b/l mentation given h/o dementia. Pt appears comfortable. Objective Last 24 Hour Vital Signs Date Time Temp Pulse Resp B/P (MAP) Pulse Ox O2 Delivery O2 Flow Rate FiO2 07/20/19 09:00 Room Air 07/20/19 08:31 85 144/62 07/20/19 08:00 98.6 85 19 144/62 (89) 99 07/20/19 04:17 98.2 90 20 151/82 (105) 98 07/20/19 00:31 98.2 88 20 146/86 (106) 93 07/19/19 21:26 Room Air 07/19/19 21:00 72 112/56 07/19/19 20:00 98.1 72 18 112/56 (74) 97 07/19/19 20:00 78 18 93 Room Air 21 07/19/19 16:00 98.4 87 18 133/80 (97) 98 07/19/19 12:00 98.0 85 18 132/78 (96) 97 Intake and Output 07/19/19 07/20/19 19:00 07:00 Intake Total 55 ml 200 ml Output Total 400 ml Balance 55 ml -200 ml Intake Oral 200 ml IV Total 55 ml Output Urine Total 400 ml # Voids 1 Laboratory Tests 07/20/19 06:00: White Blood Count 8.9, Red Blood Count 3.42L, Hemoglobin 11.4L, Hematocrit 31.7L , Mean Corpuscular Volume 92, Mean Corpuscular Hemoglobin 33.2H, Mean Corpuscular Hemoglobin Concent 35.9, Red Cell Distribution Width 11.6, Platelet Count 112L, Mean Platelet Volume 9.1, Neutrophils (%) (Auto) 66.2, Lymphocytes ( %) (Auto) 22.1, Monocytes (%) (Auto) 9.1, Eosinophils (%) (Auto) 1.5, Basophils (%) (Auto) 1.0, Sodium Level 148H, Potassium Level 3.7, Chloride Level 114H, Carbon Dioxide Level 18L, Anion Gap 16H, Blood Urea Nitrogen 29H, Creatinine 1.8H, Estimat Glomerular Filtration Rate 26.7, Glucose Level 124H, Calcium Level 9.4 Height (Feet): 5 Height (Inches): 5.00 Weight (Pounds): 138 Objective General Appearance: awake, in NAD, confused, AOx1 self only Neck: supple, normal inspection Respiratory/Chest: lungs clear, normal breath sounds, no respiratory distress, no accessory muscle use Cardiovascular/Chest: normal rate, regular rhythm Abdomen: non tender, soft Extremities: non-tender, normal inspection Ester Villegas M.D. Jul 20, 2019 10:04
--- NOTE | 2019-07-20 10:05 | NUR ---
DISCHARGE PLANNING PATIENT HAS BEEN REFERRED TO [facility] P: F: [phone] [facility] P: [phone] F: [phone] [facility] P: [phone] F: [phone] CALL MADE TO PATIENTS RP/DAUGHTER JUNAID CHANCE . NO ANSWER. VM LEFT REQUESTING CALL BACK. Addendum: 07/20/19 at 1215 by GALINA VEGAS LVN LVN [facility] P: F: [phone] PER NAHOMI, CONFIRMED RECEIPT OF INQUIRY. ATTEMPTING TO VERIFY FINANCIALS AT THIS TIME [facility] P: F: [phone] PER GLADYS, UNABLE TO ACCEPT PATIENT AT THIS TIME [facility] P: [phone] F: [phone] PER CARLA, UNABLE TO ACCEPT PATIENT AT THIS TIME
--- NOTE | 2019-07-20 11:50 | Pulmonology Progress Note ---
Assessment/Plan Assessment/Plan IMPRESSION: 1. Hyperosmolar state. 2. Renal failure. 3. Hypernatremia. 4. Atrial fibrillation. 5. Hypertension. DISCUSSION: Continue hypotonic fluids and diabetes control. I will follow carefully. CXR shows enlarged cardiac silhouette and pacemaker Butch Aguilar M.D. Subjective Interval Events: None new Constitutional: Reports: no symptoms HEENT: Repors: no symptoms Respiratory: Reports: no symptoms Cardiovascular: Reports: no symptoms Gastrointestinal/Abdominal: Reports: no symptoms Allergies: Coded Allergies: NO KNOWN ALLERGIES (Unverified Allergy, Unknown, 12/09/14) Objective Last 24 Hour Vital Signs Date Time Temp Pulse Resp B/P (MAP) Pulse Ox O2 Delivery O2 Flow Rate FiO2 07/20/19 09:00 Room Air 07/20/19 08:31 85 144/62 07/20/19 08:00 98.6 85 19 144/62 (89) 99 07/20/19 04:17 98.2 90 20 151/82 (105) 98 07/20/19 00:31 98.2 88 20 146/86 (106) 93 07/19/19 21:26 Room Air 07/19/19 21:00 72 112/56 07/19/19 20:00 98.1 72 18 112/56 (74) 97 07/19/19 20:00 78 18 93 Room Air 21 07/19/19 16:00 98.4 87 18 133/80 (97) 98 07/19/19 12:00 98.0 85 18 132/78 (96) 97 Intake and Output 07/19/19 07/20/19 19:00 07:00 Intake Total 55 ml 200 ml Output Total 400 ml Balance 55 ml -200 ml Intake Oral 200 ml IV Total 55 ml Output Urine Total 400 ml # Voids 1 General Appearance: no acute distress HEENT: normocephalic Respiratory/Chest: chest wall non-tender, lungs clear Cardiovascular: normal peripheral pulses Abdomen: normal bowel sounds Laboratory Tests 07/20/19 06:00: White Blood Count 8.9, Red Blood Count 3.42L, Hemoglobin 11.4L, Hematocrit 31.7L , Mean Corpuscular Volume 92, Mean Corpuscular Hemoglobin 33.2H, Mean Corpuscular Hemoglobin Concent 35.9, Red Cell Distribution Width 11.6, Platelet Count 112L, Mean Platelet Volume 9.1, Neutrophils (%) (Auto) 66.2, Lymphocytes ( %) (Auto) 22.1, Monocytes (%) (Auto) 9.1, Eosinophils (%) (Auto) 1.5, Basophils (%) (Auto) 1.0, Sodium Level 148H, Potassium Level 3.7, Chloride Level 114H, Carbon Dioxide Level 18L, Anion Gap 16H, Blood Urea Nitrogen 29H, Creatinine 1.8H, Estimat Glomerular Filtration Rate 26.7, Glucose Level 124H, Calcium Level 9.4 Current Medications Medications (Trade) Dose Ordered Sig/Jaylen Route PRN Reason Start Time Stop Time Status Last Admin Dose Admin Acetaminophen (Tylenol) 650 mg Q4H PRN ORAL Mild Pain (Pain Scale 1-3) 07/17/19 00:45 08/14/19 16:44 Albuterol/ Ipratropium (Albuterol/ Ipratropium) 3 ml Q4H PRN HHN Shortness of Breath 07/17/19 00:45 07/20/19 16:44 Apixaban (Eliquis) 2.5 mg BID ORAL 07/17/19 09:00 10/14/19 17:59 07/20/19 08:31 Atorvastatin Calcium (Lipitor) 80 mg BEDTIME ORAL 07/17/19 21:00 10/14/19 20:59 07/19/19 21:04 Ceftriaxone Sodium 1 gm/ Sodium Chloride 55 ml @ 110 mls/hr Q24H IVPB 07/19/19 20:00 07/26/19 19:59 07/19/19 21:04 Chlorhexidine Gluconate (Ailyn-Hex 2%) 1 applic DAILY@2000 TOPIC 07/17/19 20:00 10/14/19 19:59 07/17/19 20:15 Dextrose (Dextrose 50%) 25 ml Q30M PRN IV Hypoglycemia 07/16/19 23:15 10/14/19 01:14 Dextrose (Dextrose 50%) 50 ml Q30M PRN IV Hypoglycemia 07/16/19 23:15 10/14/19 01:14 Docusate Sodium (Colace) 100 mg EVERY 12 HOURS ORAL 07/17/19 09:00 08/14/19 20:59 07/20/19 08:31 Insulin Aspart (NovoLOG) BEFORE MEALS AND HS SUBQ 07/17/19 06:30 10/14/19 06:29 07/19/19 21:06 Insulin Aspart (NovoLOG) 4 units NOVOTIAC SUBQ 07/17/19 11:50 10/14/19 06:29 07/19/19 16:50 Insulin Detemir (Levemir) 12 units DAILY SUBQ 07/17/19 09:00 10/14/19 13:44 07/20/19 08:33 Metoprolol Tartrate (Lopressor) 50 mg Q12HR ORAL 07/18/19 21:00 10/14/19 20:59 07/20/19 08:31 Ondansetron HCl (Zofran) 4 mg Q6H PRN IVP Nausea & Vomiting 07/17/19 22:55 08/14/19 22:54 Sitagliptin Phosphate (Januvia) 25 mg ACBREAKFAST ORAL 07/17/19 06:30 08/15/19 13:44 07/20/19 06:20 Sodium Bicarbonate (NaHCO3) 650 mg THREE TIMES A DAY ORAL 07/20/19 13:00 08/19/19 12:59 Sodium Chloride 1,000 ml @ 75 mls/hr [id number] IV 07/20/19 10:00 08/19/19 09:59 07/20/19 10:31 Butch Aguilar MD Jul 20, 2019 11:50
[2019-07-20 12:00] VITALS: BP 131/69
--- NOTE | 2019-07-20 12:18 | NUR ---
CASE MANAGEMENT:REVIEW SI;UNCONTROLLED DM. TREVOR. AC MET ENCEPHALOPATHY. 98.6 90 20 151/82 93% ON RA NA 148 CL 114 CO2 18 BUN 29 CR 1.8 BG 124 IS;NA BICARB PO TID IVF NS @ 75 ML/HR CEFEPIME IV Q12 HRS ROCEPHIN IV Q24 HRS INSULIN NOVOLOG INSULIN LEVEMIR NOVOLOG DUO NEB HHN Q4 HRS PRN MED SURG STATUS DCP;PATIENT IS FROM HOME DISCHARGE PLANNING TO SNF AT THIS TIME
[2019-07-20] MEDS ORDERED: Varibar Honey 250ml MC PRN (12:45)
[2019-07-20] MEDS ORDERED: Varibar Pudding 230ml MC PRN (12:45)
[2019-07-20] MEDS ORDERED: Varibar Nectar 240ml MC PRN (12:45)
--- NOTE | 2019-07-20 13:20 | NUR ---
NURSE NOTES: Patient transported to Radiology Dept for video swallow study in stable condition.
--- NOTE | 2019-07-20 13:53 | NUR ---
NURSE NOTES: Patient returned from Radiology in stable condition.
--- NOTE | 2019-07-20 13:57 | Cardiac Electrophysiology PN ---
Assessment/Plan Assessment/Plan 1. Atrial fibrillation. On metoprolol 50 mg b.i.d. and Eliquis 2.5 mg b.i.d. 2. Hypertension, on metoprolol 50 b.i.d.. 3. S/P [facility] VVI Pacer. Nl Fx by tele 4. Uncontrolled diabetes, on insulin. Hemoglobin A1c of 10. 5. Acute renal failure. Cr improved to 1.8 6. Hyperkalemia was resolved after HD. 7. Hyperlipidemia, on Lipitor. DENI RN Subjective Subjective Right femoral dialysis catheter was removed.Off tele.No events. DC planning Objective Last 24 Hour Vital Signs Date Time Temp Pulse Resp B/P (MAP) Pulse Ox O2 Delivery O2 Flow Rate FiO2 07/20/19 12:00 98.6 79 18 131/69 (89) 99 07/20/19 09:00 Room Air 07/20/19 08:31 85 144/62 07/20/19 08:00 98.6 85 19 144/62 (89) 99 07/20/19 04:17 98.2 90 20 151/82 (105) 98 07/20/19 00:31 98.2 88 20 146/86 (106) 93 07/19/19 21:26 Room Air 07/19/19 21:00 72 112/56 07/19/19 20:00 98.1 72 18 112/56 (74) 97 07/19/19 20:00 78 18 93 Room Air 21 07/19/19 16:00 98.4 87 18 133/80 (97) 98 Intake and Output 07/19/19 07/20/19 19:00 07:00 Intake Total 55 ml 200 ml Output Total 400 ml Balance 55 ml -200 ml Intake Oral 200 ml IV Total 55 ml Output Urine Total 400 ml # Voids 1 Laboratory Tests Test 07/20/19 06:00 White Blood Count 8.9 K/UL (4.8-10.8) Red Blood Count 3.42 M/UL (4.20-5.40) L Hemoglobin 11.4 G/DL (12.0-16.0) L Hematocrit 31.7 % (37.0-47.0) L Mean Corpuscular Volume 92 FL (80-99) Mean Corpuscular Hemoglobin 33.2 PG (27.0-31.0) H Mean Corpuscular Hemoglobin Concent 35.9 G/DL (32.0-36.0) Red Cell Distribution Width 11.6 % (11.6-14.8) Platelet Count 112 K/UL (150-450) L Mean Platelet Volume 9.1 FL (6.5-10.1) Neutrophils (%) (Auto) 66.2 % (45.0-75.0) Lymphocytes (%) (Auto) 22.1 % (20.0-45.0) Monocytes (%) (Auto) 9.1 % (1.0-10.0) Eosinophils (%) (Auto) 1.5 % (0.0-3.0) Basophils (%) (Auto) 1.0 % (0.0-2.0) Sodium Level 148 MMOL/L (136-145) H Potassium Level 3.7 MMOL/L (3.5-5.1) Chloride Level 114 MMOL/L (98-107) H Carbon Dioxide Level 18 MMOL/L (21-32) L Anion Gap 16 mmol/L (5-15) H Blood Urea Nitrogen 29 mg/dL (7-18) H Creatinine 1.8 MG/DL (0.55-1.30) H Estimat Glomerular Filtration Rate 26.7 mL/min (>60) Glucose Level 124 MG/DL (74-106) H Calcium Level 9.4 MG/DL (8.5-10.1) Objective HEAD AND NECK: No JVD. LUNGS: Clear. CARDIOVASCULAR: Irregular S1 and S2 with no gallop. ABDOMEN: Soft. EXTREMITIES: No pitting edema. 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 Vladimir Macias MD Jul 20, 2019 13:57
[2019-07-20] MEDS: Sodium Bicarbonate 650mg Tab ORAL SCH ×2 (14:00→17:28)
--- NOTE | 2019-07-20 14:37 | NUR ---
MBSS REPORT: COMPLETED MODIFIED BARIUM SWALLOW STUDY (MBSS) SEE FULL REPORT FOR DETAILS. 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 -THIN LIQUIDS (TSP, CUP, STRAW): NO RADIOGRAPHIC EVIDENCE OF ANY ASPIRATION OR PENETRATION -NECTAR THICK LIQUIDS (TSP, CUP, STRAW): NO RADIOGRAPHIC EVIDENCE OF ANY ASPIRATION OR PENETRATION -HONEY THICK LIQUIDS (TSP): NO RADIOGRAPHIC EVIDENCE OF ANY ASPIRATION OR PENETRATION -PUDDING THICK LIQUIDS (TSP): NO RADIOGRAPHIC EVIDENCE OF ANY ASPIRATION OR PENETRATION -MASTICATED SOLIDS (SALTINE CRACKER AND 3 CC PUDDING): NO SIGNIFICANT RADIOGRAPHIC EVIDENCE OF ANY ASPIRATION OR PENETRATION, HOWEVER, INEFFECTIVE MASTICATION, PROLONGED A-P TRANSIT TO BOT, AND PT REQUIRED LIQUID RINSE OF THIN LIQUIDS X2 TO PARTIALLY CLEAR TRIAL FROM ORAL CAVITY AND ST REMOVED W/ SWAB REMAINING TRIAL. HIGH ASPIRATION/PENETRATION RISKS AND REDUCED SWALLOW EFFICIENCY DUE TO THE FOLLOWING COMPONENTS: Oral Impairment Lip Closure Tongue Control Bolus prep/mastication Bolus ramon/lingual motion Oral residue Init. pharyngeal swallow (BOLUS IN HEAD OF PYRIFORMS, HOWEVER, THIS IS CONSIDERED WFL FOR PT'S AGE AND THIS DID NOT RESULT IN S/S OF ASPIRATION AND/OR PENETRATION.) Pharyngeal Impairment Pharyngeal residue Decrease pharyn sensation ESOPHAGEAL PHASE: GROSSLY FUNCTIONAL BUT LIMITED IN LATERAL VIEW. TRIAL TX: PT UNABLE TO CONSISTENTLY FOLLOW VERBAL COMMANDS FOR TRIAL TX. RECOMMENDATIONS: 1. CONTINUE PUREE SOLIDS, UPGRADE TO THIN LIQUIDS; 1:1 FEEDING AND ASPIRATION PRECAUTIONS. 2. PT REQUIRES VERBAL CUES TO RE-SWALLOW DUE TO REDUCED PHARYNGEAL SENSATIONS OF PHARYNGEAL RESIDUALS.
[2019-07-20 16:00] VITALS: BP 111/70
--- NOTE | 2019-07-20 19:34 | NUR ---
HAND-OFF: Report given to Naeem JONES.
--- NOTE | 2019-07-20 19:35 | NUR ---
NURSE NOTES: Receive pt in the bed in stable condition. No sob, complain of pain, and fever. vitals are stable. Bed is in the lower position, alarm is on and locked. Call light within reach. We will keep monitoring.
[2019-07-20 20:00] VITALS: BP 137/73
[2019-07-20] MEDS: cefTRIAXone 1 GM in NS 55 ML IVPB SCH (20:28)
[2019-07-20] MEDS: Atorvastatin 80mg tab ORAL SCH (20:29)
--- NOTE | 2019-07-20 22:04 | Neurology Progress Note ---
Interim History Interim History ROS Limited/Unobtainable: Yes Interim History remains confused, high creat Objective Physical Exam Last Vital Signs Date Time Temp Pulse Resp B/P (MAP) Pulse Ox O2 Delivery O2 Flow Rate FiO2 07/20/19 20:29 72 137/73 07/20/19 20:00 97.5 20 98 07/20/19 09:00 Room Air 07/19/19 20:00 21 Laboratory Tests Test 07/20/19 06:00 White Blood Count 8.9 K/UL (4.8-10.8) Red Blood Count 3.42 M/UL (4.20-5.40) L Hemoglobin 11.4 G/DL (12.0-16.0) L Hematocrit 31.7 % (37.0-47.0) L Mean Corpuscular Volume 92 FL (80-99) Mean Corpuscular Hemoglobin 33.2 PG (27.0-31.0) H Mean Corpuscular Hemoglobin Concent 35.9 G/DL (32.0-36.0) Red Cell Distribution Width 11.6 % (11.6-14.8) Platelet Count 112 K/UL (150-450) L Mean Platelet Volume 9.1 FL (6.5-10.1) Neutrophils (%) (Auto) 66.2 % (45.0-75.0) Lymphocytes (%) (Auto) 22.1 % (20.0-45.0) Monocytes (%) (Auto) 9.1 % (1.0-10.0) Eosinophils (%) (Auto) 1.5 % (0.0-3.0) Basophils (%) (Auto) 1.0 % (0.0-2.0) Sodium Level 148 MMOL/L (136-145) H Potassium Level 3.7 MMOL/L (3.5-5.1) Chloride Level 114 MMOL/L (98-107) H Carbon Dioxide Level 18 MMOL/L (21-32) L Anion Gap 16 mmol/L (5-15) H Blood Urea Nitrogen 29 mg/dL (7-18) H Creatinine 1.8 MG/DL (0.55-1.30) H Estimat Glomerular Filtration Rate 26.7 mL/min (>60) Glucose Level 124 MG/DL (74-106) H Calcium Level 9.4 MG/DL (8.5-10.1) Head: normocophalic Neck: no rigidity EENT: benign Neurologic Exam Objective somnolent, open eyes to pain right spastic hemiparesis cc 36 min Impression/Recommendations Problems: (1) Elevated troponin (2) Elevated LFTs (3) Acute delirium (4) Sepsis (5) Altered level of consciousness (6) Uncontrolled type 2 diabetes mellitus with hyperosmolar nonketotic hyperglycemia (7) ARF (acute renal failure) (8) Encephalopathy acute (9) UTI (urinary tract infection) (10) Hyperkalemia Diagnostic Impression acute encephalopathy hx of advanced dementia Right spastic hemiparesis Sepsis Cultures pending atb broad spectrum hold namenda hold sedating Christopher Alvarez MD Jul 20, 2019 22:04
--- NOTE | 2019-07-20 22:30 | NUR ---
NURSE NOTES: pt bs was 67 when we check. We gave her ensure and juices .We rechecked after 30min and it went up to 69 . Gave her more juice and went up to 117. We will continue monitoring her
--- NOTE | 2019-07-20 22:30 | NUR ---
NURSE NOTES: pt bs was 67 when we check. We gave her ensure and juices .We rechecked After 30min it when up Addendum: 07/21/19 at 0019 by BOLIVAR ANDERSON RN discard this note
[2019-07-21] VITALS: BP 156/90
[2019-07-21 04:00] VITALS: BP 155/69
[2019-07-21] MEDS: sitaGLIPtin 25mg tab ORAL SCH (06:15)
[2019-07-21] MEDS: NovoLOG Insulin Flexpen SUBQ SCH ×4 (06:16→11:50)
--- NOTE | 2019-07-21 06:23 | NUR ---
NURSE NOTES: I hold the morning routine 4 unit NovoLog because pt is not eating that much and bs was low earlier.
--- NOTE | 2019-07-21 07:10 | NUR ---
HAND-OFF: Report given to KAREN kahn. I endorsed the pt is risk for aspiration
--- NOTE | 2019-07-21 07:16 | NUR ---
NURSE NOTES: received report from KAREN reddy. patient in bed. sleeping. no respiratory distress noted on room air. no facial grimacing. IV on LAC running fluid. soft restraints on both wrist. intact. skin intact. bed in the lowest position and locked. call light within reach. will continue to provide plan of care.
[2019-07-21 08:00] VITALS: BP 148/72
[2019-07-21] MEDS: Docusate 100mg cap ORAL SCH (09:11)
[2019-07-21] MEDS: Metoprolol Tartrate 50mg tab ORAL SCH (09:12)
[2019-07-21] MEDS: Eliquis 2.5mg tablet ORAL SCH (09:12)
[2019-07-21] MEDS: Sodium Bicarbonate 650mg Tab ORAL SCH ×2 (09:12→12:44)
[2019-07-21] MEDS: Levemir Flexpen SUBQ SCH (09:15)
--- NOTE | 2019-07-21 09:15 | Discharge Summary ---
Discharge Summary Hospital Course Date of Admission Jul 15, 2019 at 15:41 Date of Discharge Admitting Diagnosis Hyperosmolar hyperglycemic state HPI In Brock Powers is a 88 year old female who was admitted on Jul 15, 2019 at 15:41 for Hyperosmolar Hyperglycemic State Hospital Course 88 year old woman with history of afib on DOAC, CVA, dementia, hypertension, hyperlipidemia, diabetes who presented to ED with DKA, severe hyperkalemia w/ EKG changes. Pt was initiated on insulin protocol for DKA, temporary HD cath was placed however pt's labs improved and HD cath was removed. Pt was noted to have Klebsiella UTI, ID consulted and pt treated with abx. During hospital stay pt was noted to be in afib, cardio consulted and pt placed on eliquis and MTP with good response to rate control. Hgb A1C was 10.4. Pt to take Keflex 500 BID x5 more days. Pt started on insulin and Januvia per Endo, instructions were given to pt's daughter. Pt's condition improved, and was d/c home w/home health. Pt to f/u w/PCP, cardiology and endocrinology as o/p. #Uncontrolled NIDDM, HONK, Hgb A1C 10.4 #TREVOR #Severe hyperkalemia with EKG changes - improved #hypokalemia - improved #Klebsiella UTI #Acute metabolic encephalopathy #Dementia #history of CVA #Atrial fibrillation #HTN, uncontrolled #PPM D/C planning >30 mins. Discharge Medications New Medications: Blood-Glucose Meter (Advocate Blood Glucose Monitor) 1 Each Each EACH , #1 Cephalexin* (Keflex*) 500 Mg Capsule 500 MG ORAL EVERY 12 HOURS for 5 Days, #14 CAP 0 Refills Isopropyl Alcohol (Alcoh-Wipe) 1 Each Towelette EACH MC, #1 3 Refills Lancets (Accu-Chek) 1 Each Each EACH MC, #1 3 Refills Insulin Aspart (Novolog Flexpen) 100 Unit/1 Ml Insuln.pen 4 UNITS SUBQ NOVOTIAC for 30 Days, #30 EA 3 Refills Insulin Aspart (Novolog Flexpen) 100 Unit/1 Ml Insuln.pen 0 UNITS SUBQ BEFORE MEALS AND HS for 30 Days, #30 EA 3 Refills Insulin Detemir (Levemir Flexpen) 100 Unit/1 Ml Insuln.pen 12 UNITS SUBQ DAILY for 30 Days, #30 EA 3 Refills Sitagliptin* (Januvia*) 25 Mg Tablet 25 MG ORAL ACBREAKFAST for 30 Days, #30 TAB 3 Refills Continued Medications: Atorvastatin Calcium* (Lipitor*) 20 Mg Tablet 20 MG ORAL BEDTIME, TAB Cholecalciferol (Vitamin D3) (Vitamin D3) 2,400 Unit/1 Ml Liquid 5000 UNIT MC DAILY for supplement, ML Donepezil Hcl* (Aricept*) 10 Mg Tablet 10 MG ORAL DAILY, TAB Ferrous Sulfate ([place]land-Iron) 15 Mg/1 Ml Drops 325 MG PO BID, ML Icosapent Ethyl (Vascepa) 1 Gm Capsule 1 GM PO BID for omega 3, CAP Losartan Potassium* (Cozaar*) 50 Mg Tab 50 MG ORAL DAILY, #30 TAB Memantine Hcl* (Namenda*) 10 Mg Tablet 28 MG ORAL DAILY, TAB Metoprolol Tartrate* (Lopressor*) 5 Mg/5 Ml Ampul 100 MG PO EVERY 8 HOURS, AMP Nifedipine* (Nifedipine Er*) 60 Mg Tablet.er 60 MG ORAL DAILY, TAB Rivaroxaban (Xarelto*) 10 Mg Tablet 15 MG ORAL DAILY, #30 TAB 0 Refills Discontinued Medications: Apixaban (Eliquis) 2.5 Mg Tablet 2.5 MG PO BID for circulate of blood, TAB Furosemide* (Lasix*) 20 Mg Tablet 20 MG ORAL DAILY for urine, TAB Memantine HCl/Donepezil HCl (Namzaric 28 mg-10 mg Capsule) 1 Each Cap.spr.24 1 EACH PO DAILY for memory, CAP Metformin Hcl* (Metformin Hcl*) 500 Mg Tablet 500 MG ORAL TWICE A DAY, TAB Nitrofurantoin Macrocrystal (Nitrofurantoin) 100 Mg Capsule 100 MG PO BID for 7 Days, CAP Raloxifene HCl (Raloxifene HCl) 60 Mg Tablet 60 MG PO DAILY for osteoperosis, TAB Saxagliptin Hcl (Onglyza) 5 Mg Tablet 5 MG PO, TAB Discharge Discharge Vital Signs Last Vital Signs Date Time Temp Pulse Resp B/P (MAP) Pulse Ox O2 Delivery O2 Flow Rate FiO2 07/21/19 08:00 97.7 71 18 148/72 (97) 98 07/20/19 21:00 Room Air 07/19/19 20:00 21 Discharge Disposition Patient was discharged to Ester Villegas M.D. Jul 21, 2019 09:15
--- NOTE | 2019-07-21 09:33 | Nephrology Progress Note ---
Assessment/Plan Plan #Acute renal failure - susept ATN- likely with baseline CKD? #Hyperkalemia- resolved #hypernatremia #severe Hyperglycemia- HHS #AMS #afib on DOAC #CVA, #dementia #hypertension # hyperlipidemia #diabetes- A1c 10.4 - resume 1/2NS at 75cc/hr - start sodium bicarb 650 TID - monitor BMP, mag, phos, calcium - replete K prn - monitor BG - endocrine eval - continue ceftriaxone - continue statin - continue MTP to 50 BID - Eliquis 2.5 BID I spent 35 minutes on this patient's case, >50% time spent on coordination fo care, pt counseling. Subjective Subjective Breathing stable on room air this morning Cr 1.8- stable sodium stable Bp stable Ok to resume losartan Objective Objective Last 24 Hour Vital Signs Date Time Temp Pulse Resp B/P (MAP) Pulse Ox O2 Delivery O2 Flow Rate FiO2 07/21/19 09:16 71 148/72 07/21/19 09:12 71 148/72 07/21/19 08:00 97.7 71 18 148/72 (97) 98 07/21/19 04:00 97.9 68 18 155/69 (97) 98 07/21/19 00:00 98.1 70 22 156/90 (112) 97 07/20/19 21:00 Room Air 07/20/19 20:29 72 137/73 07/20/19 20:00 97.5 72 20 137/73 (94) 98 07/20/19 16:00 98.0 79 18 111/70 (84) 100 07/20/19 12:00 98.6 79 18 131/69 (89) 99 Intake and Output 07/20/19 07/21/19 19:00 07:00 Intake Total 750 ml 580 ml Output Total 450 ml 400 ml Balance 300 ml 180 ml Intake Oral 150 ml IV Total 600 ml 580 ml Output Urine Total 450 ml 400 ml Height (Feet): 5 Height (Inches): 5.00 Weight (Pounds): 135 Vikki Jackson M.D. Jul 21, 2019 09:33
--- NOTE | 2019-07-21 09:34 | NUR ---
DISCHARGE PLANNING PATIENT HAS BEEN REFERRED TO [facility] P: [phone] F: [phone]
[2019-07-21] MEDS ORDERED: NOVOLOG100 UNITS1 SUBQ ×2 (09:37)
[2019-07-21] MEDS ORDERED: JANUVIA25 MG ORAL (09:37)
[2019-07-21] MEDS ORDERED: LEVEMIR FL100 UNIT/1 SUBQ (09:37)
[2019-07-21] MEDS ORDERED: CEPHALEXIN500 MG ORAL (09:37)
[2019-07-21] MEDS ORDERED: ACCU-CHEK1 EAC1 MC (09:39)
[2019-07-21] MEDS ORDERED: ALCOH-WIPE1 EACH MC (09:39)
[2019-07-21] MEDS ORDERED: ADVOCATE BLOOD1 EACH MC (09:39)
--- NOTE | 2019-07-21 10:20 | NUR ---
NURSE NOTES: called a daughter, Elenita Powers for schedule ambulance. she is available after 1600 today. Notified JULIANE parks.
--- NOTE | 2019-07-21 10:33 | NUR ---
*-*DISCHARGE PLANNING*-* PATIENT HAS BEEN REFERRED TO [facility] P: [phone] F: [phone]
--- NOTE | 2019-07-21 11:29 | Discharge Instructions ---
Discharge Instructions Discharge Instructions Follow up with: PCP, structural steel equipment erector and Fuel Buyer for medication adjustments For Congestive Heart Failure Reminder Report to your physician any weight gain of 5 pounds or more in one week. Ester Villegas M.D. Jul 21, 2019 11:29
--- NOTE | 2019-07-21 11:30 | NUR ---
NURSE NOTES: received call from Dominic johnson, daughter. patient' pharmacy([facility]) have questions regarding medications. nurse called pharmacy. not answering phone at this time.
--- NOTE | 2019-07-21 11:43 | Pulmonology Progress Note ---
Assessment/Plan Assessment/Plan IMPRESSION: 1. Hyperosmolar state. 2. Renal failure. 3. Hypernatremia. 4. Atrial fibrillation. 5. Hypertension. DISCUSSION: Continue hypotonic fluids and diabetes control. I will follow carefully. CXR shows enlarged cardiac silhouette and pacemaker Butch Aguilar M.D. Subjective Interval Events: None new Constitutional: Reports: no symptoms HEENT: Repors: no symptoms Respiratory: Reports: no symptoms Cardiovascular: Reports: no symptoms Gastrointestinal/Abdominal: Reports: no symptoms Genitourinary: Reports: no symptoms Allergies: Coded Allergies: NO KNOWN ALLERGIES (Unverified Allergy, Unknown, 12/09/14) Objective Last 24 Hour Vital Signs Date Time Temp Pulse Resp B/P (MAP) Pulse Ox O2 Delivery O2 Flow Rate FiO2 07/21/19 09:16 71 148/72 07/21/19 09:12 71 148/72 07/21/19 09:00 Room Air 07/21/19 08:00 97.7 71 18 148/72 (97) 98 07/21/19 04:00 97.9 68 18 155/69 (97) 98 07/21/19 00:00 98.1 70 22 156/90 (112) 97 07/20/19 21:00 Room Air 07/20/19 20:29 72 137/73 07/20/19 20:00 97.5 72 20 137/73 (94) 98 07/20/19 16:00 98.0 79 18 111/70 (84) 100 07/20/19 12:00 98.6 79 18 131/69 (89) 99 Intake and Output 07/20/19 07/21/19 19:00 07:00 Intake Total 750 ml 580 ml Output Total 450 ml 400 ml Balance 300 ml 180 ml Intake Oral 150 ml IV Total 600 ml 580 ml Output Urine Total 450 ml 400 ml General Appearance: no acute distress HEENT: normocephalic Respiratory/Chest: chest wall non-tender Cardiovascular: normal peripheral pulses Abdomen: normal bowel sounds Current Medications Medications (Trade) Dose Ordered Sig/Jaylen Route PRN Reason Start Time Stop Time Status Last Admin Dose Admin Acetaminophen (Tylenol) 650 mg Q4H PRN ORAL Mild Pain (Pain Scale 1-3) 07/17/19 00:45 08/14/19 16:44 Amlodipine Besylate (Norvasc) 5 mg DAILY ORAL 07/21/19 10:00 08/20/19 09:59 07/21/19 09:16 Apixaban (Eliquis) 2.5 mg BID ORAL 07/17/19 09:00 10/14/19 17:59 07/21/19 09:12 Atorvastatin Calcium (Lipitor) 80 mg BEDTIME ORAL 07/17/19 21:00 10/14/19 20:59 07/20/19 20:29 Barium Sulfate (Varibar Honey) 250 ml NOW PRN MC RAD 07/20/19 12:45 07/23/19 12:38 Barium Sulfate (Varibar [place]) 240 ml NOW PRN MC RAD 07/20/19 12:45 07/23/19 12:38 Barium Sulfate (Varibar Pudding) 230 ml NOW PRN MC RAD 07/20/19 12:45 07/23/19 12:38 Ceftriaxone Sodium 1 gm/ Sodium Chloride 55 ml @ 110 mls/hr Q24H IVPB 07/19/19 20:00 07/26/19 19:59 07/20/19 20:28 Dextrose (Dextrose 50%) 25 ml Q30M PRN IV Hypoglycemia 07/16/19 23:15 10/14/19 01:14 Dextrose (Dextrose 50%) 50 ml Q30M PRN IV Hypoglycemia 07/16/19 23:15 10/14/19 01:14 Docusate Sodium (Colace) 100 mg EVERY 12 HOURS ORAL 07/17/19 09:00 08/14/19 20:59 07/21/19 09:11 Insulin Aspart (NovoLOG) BEFORE MEALS AND HS SUBQ 07/17/19 06:30 10/14/19 06:29 07/21/19 06:16 Insulin Aspart (NovoLOG) 4 units NOVOTIAC SUBQ 07/17/19 11:50 10/14/19 06:29 07/20/19 17:05 Insulin Detemir (Levemir) 12 units DAILY SUBQ 07/17/19 09:00 10/14/19 13:44 07/21/19 09:15 Metoprolol Tartrate (Lopressor) 50 mg Q12HR ORAL 07/18/19 21:00 10/14/19 20:59 07/21/19 09:12 Ondansetron HCl (Zofran) 4 mg Q6H PRN IVP Nausea & Vomiting 07/17/19 22:55 08/14/19 22:54 Sitagliptin Phosphate (Januvia) 25 mg ACBREAKFAST ORAL 07/17/19 06:30 08/15/19 13:44 07/21/19 06:15 Sodium Bicarbonate (NaHCO3) 650 mg THREE TIMES A DAY ORAL 07/20/19 13:00 08/19/19 12:59 07/21/19 09:12 Sodium Chloride 1,000 ml @ 75 mls/hr [id number] IV 07/20/19 10:00 08/19/19 09:59 07/20/19 23:34 Butch Aguilar MD Jul 21, 2019 11:43
--- NOTE | 2019-07-21 11:53 | Cardiac Electrophysiology PN ---
Assessment/Plan Assessment/Plan 1. Atrial fibrillation. On metoprolol 50 mg b.i.d. and Eliquis 2.5 mg b.i.d. 2. Hypertension, on metoprolol 50 b.i.d.. 3. S/P [facility] VVI Pacer. Nl Fx 4. Uncontrolled diabetes, on insulin. Hemoglobin A1c of 10. 5. Acute renal failure. No more HD. Cr improved to 1.8 6. Hyperkalemia was resolved after HD. 7. Hyperlipidemia, on Lipitor. DENI RN Subjective Subjective Off tele.No events. DC home with home health Objective Last 24 Hour Vital Signs Date Time Temp Pulse Resp B/P (MAP) Pulse Ox O2 Delivery O2 Flow Rate FiO2 07/21/19 09:16 71 148/72 07/21/19 09:12 71 148/72 07/21/19 09:00 Room Air 07/21/19 08:00 97.7 71 18 148/72 (97) 98 07/21/19 04:00 97.9 68 18 155/69 (97) 98 07/21/19 00:00 98.1 70 22 156/90 (112) 97 07/20/19 21:00 Room Air 07/20/19 20:29 72 137/73 07/20/19 20:00 97.5 72 20 137/73 (94) 98 07/20/19 16:00 98.0 79 18 111/70 (84) 100 07/20/19 12:00 98.6 79 18 131/69 (89) 99 Intake and Output 07/20/19 07/21/19 19:00 07:00 Intake Total 750 ml 580 ml Output Total 450 ml 400 ml Balance 300 ml 180 ml Intake Oral 150 ml IV Total 600 ml 580 ml Output Urine Total 450 ml 400 ml Objective HEAD AND NECK: No JVD. LUNGS: Clear. CARDIOVASCULAR: Irregular S1 and S2 with no gallop. ABDOMEN: Soft. EXTREMITIES: No pitting edema. 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 Vladimir Macias MD Jul 21, 2019 11:53
[2019-07-21 12:00] VITALS: BP 128/69
--- NOTE | 2019-07-21 12:00 | NUR ---
NURSE NOTES: held insulin 4units schedule d/t poor intake. consumed 10% lunch. [id number]
--- NOTE | 2019-07-21 13:02 | NUR ---
NURSE NOTES: nurse tried 2nd call to [facility]. not answering phone at this time.
--- NOTE | 2019-07-21 14:24 | NUR ---
DISCHARGE PLANNING PATIENT TO DISCHARGE HOME. DAUGHTER TO BE AT HOME AFTER 1600 PM TO RECEIVE PATIENT. S AMBULANCE TRANSPORTATION SCHEDULED WITH [phone] WITH ETA @ 1545 PM. KAREN LOPEZ INFORMED OF ETA. CALL MADE TO PATIENTS DAUGHTERRP @ [phone] AND [phone] WITH NO ANSWER. VM LEFT WITH REQUEST TO CALL CM.
--- NOTE | 2019-07-21 14:27 | Surgery Progress Note ---
Surgery Progress Note Subjective Procedure Performed Right femoral temporary hemodialysis catheter removal Additional Comments restrained comfortable appearing no n/v/f/ c Objective Last 24 Hour Vital Signs Date Time Temp Pulse Resp B/P (MAP) Pulse Ox O2 Delivery O2 Flow Rate FiO2 07/21/19 12:00 98.7 76 18 128/69 (88) 97 07/21/19 09:16 71 148/72 07/21/19 09:12 71 148/72 07/21/19 09:00 Room Air 07/21/19 08:00 97.7 71 18 148/72 (97) 98 07/21/19 04:00 97.9 68 18 155/69 (97) 98 07/21/19 00:00 98.1 70 22 156/90 (112) 97 07/20/19 21:00 Room Air 07/20/19 20:29 72 137/73 07/20/19 20:00 97.5 72 20 137/73 (94) 98 07/20/19 16:00 98.0 79 18 111/70 (84) 100 I&O Intake and Output 07/20/19 07/21/19 19:00 07:00 Intake Total 750 ml 580 ml Output Total 450 ml 400 ml Balance 300 ml 180 ml Intake Oral 150 ml IV Total 600 ml 580 ml Output Urine Total 450 ml 400 ml Dressing: dry Wound: clean Cardiovascular: RSR Respiratory: clear Abdomen: soft, non-tender, present bowel sounds Extremities: no edema, no tenderness, no cyanosis Plan Problems: (1) Elevated troponin (2) Elevated LFTs (3) Hyperkalemia Assessment & Plan: Calcium Dextrose insulin as needed Urgent hemodialysis discussed with tomato grader labs improved discussed with nephro will monitor hold line (4) ARF (acute renal failure) (5) Encephalopathy acute (6) Acute delirium (7) Sepsis Assessment & Plan: Hyperglycemia, hyperkalemia, renal insufficiency. EKG with peaked T waves abnormal Emergent dialysis indicated recommended Complete examination performed chart reviewed discussion had with patient's family regards to history discussion had with primary care physician tomato grader Emergency hemodialysis catheter insertion temporary indicated recommended Please see procedure note We will follow with recommendations thank you for let me participate patient's care improved resuscitating well stable line removed see note improving more alert and responsive. if anything now combative (8) UTI (urinary tract infection) (9) Altered level of consciousness (10) Uncontrolled type 2 diabetes mellitus with hyperosmolar nonketotic hyperglycemia Gilberto Donovan Jul 21, 2019 14:27
--- NOTE | 2019-07-21 14:46 | General Progress Note ---
Assessment/Plan Problem List: (1) Uncontrolled type 2 diabetes mellitus with hyperosmolar nonketotic hyperglycemia ICD Codes: E11.00 - Type 2 diabetes mellitus with hyperosmolarity without nonketotic hyperglycemic-hyperosmolar coma ([facility]) SNOMED: 42275034, 162610218, 941332654 (2) ARF (acute renal failure) ICD Codes: N17.9 - Acute kidney failure, unspecified SNOMED: 09742943, 682028412, 567419843 (3) Sepsis ICD Codes: A41.9 - Sepsis SNOMED: 21269868 (4) Acute delirium ICD Codes: R41.0 - Disorientation, unspecified SNOMED: 2299902 Assessment/Plan: continue Levemir 12 units daily hold Novolog 4 units ac tid if not eating continue Novolog sliding scale ac / hs continue Januvia 25 mg daily hypoglycemia protocol in order Subjective ROS Limited/Unobtainable: Yes Allergies: Coded Allergies: NO KNOWN ALLERGIES (Unverified Allergy, Unknown, 12/09/14) Subjective events noted interval notes reviewed glucose values are stable Item Value Date Time Bedside Blood Glucose 106 mg/dl 07/21/19 1150 Bedside Blood Glucose 122 mg/dl H 07/21/19 0915 Bedside Blood Glucose 143 mg/dl H 07/21/19 0616 Bedside Blood Glucose 117 mg/dl 07/21/19 0013 Bedside Blood Glucose 67 mg/dl L 07/20/19 2100 Bedside Blood Glucose 147 mg/dl H 07/20/19 1705 Bedside Blood Glucose 249 mg/dl H 07/20/19 1212 Bedside Blood Glucose 104 mg/dl 07/20/19 0833 Objective Last 24 Hour Vital Signs Date Time Temp Pulse Resp B/P (MAP) Pulse Ox O2 Delivery O2 Flow Rate FiO2 07/21/19 12:00 98.7 76 18 128/69 (88) 97 07/21/19 09:16 71 148/72 07/21/19 09:12 71 148/72 07/21/19 09:00 Room Air 07/21/19 08:00 97.7 71 18 148/72 (97) 98 07/21/19 04:00 97.9 68 18 155/69 (97) 98 07/21/19 00:00 98.1 70 22 156/90 (112) 97 07/20/19 21:00 Room Air 07/20/19 20:29 72 137/73 07/20/19 20:00 97.5 72 20 137/73 (94) 98 07/20/19 16:00 98.0 79 18 111/70 (84) 100 Intake and Output 07/20/19 07/21/19 19:00 07:00 Intake Total 750 ml 580 ml Output Total 450 ml 400 ml Balance 300 ml 180 ml Intake Oral 150 ml IV Total 600 ml 580 ml Output Urine Total 450 ml 400 ml Height (Feet): 5 Height (Inches): 5.00 Weight (Pounds): 135 General Appearance: no apparent distress Neck: normal alignment Cardiovascular: normal rate Respiratory/Chest: lungs clear Abdomen: normal bowel sounds Pelvis: normal external exam Objective Current Medications Medications (Trade) Dose Ordered Sig/Jaylen Route PRN Reason Start Time Stop Time Status Last Admin Dose Admin Acetaminophen (Tylenol) 650 mg Q4H PRN ORAL Mild Pain (Pain Scale 1-3) 07/17/19 00:45 08/14/19 16:44 Amlodipine Besylate (Norvasc) 5 mg DAILY ORAL 07/21/19 10:00 08/20/19 09:59 07/21/19 09:16 Apixaban (Eliquis) 2.5 mg BID ORAL 07/17/19 09:00 10/14/19 17:59 07/21/19 09:12 Atorvastatin Calcium (Lipitor) 80 mg BEDTIME ORAL 07/17/19 21:00 10/14/19 20:59 07/20/19 20:29 Barium Sulfate (Varibar Honey) 250 ml NOW PRN MC RAD 07/20/19 12:45 07/23/19 12:38 Barium Sulfate (Varibar [place]) 240 ml NOW PRN MC RAD 07/20/19 12:45 07/23/19 12:38 Barium Sulfate (Varibar Pudding) 230 ml NOW PRN MC RAD 07/20/19 12:45 07/23/19 12:38 Ceftriaxone Sodium 1 gm/ Sodium Chloride 55 ml @ 110 mls/hr Q24H IVPB 07/19/19 20:00 07/26/19 19:59 07/20/19 20:28 Dextrose (Dextrose 50%) 25 ml Q30M PRN IV Hypoglycemia 07/16/19 23:15 10/14/19 01:14 Dextrose (Dextrose 50%) 50 ml Q30M PRN IV Hypoglycemia 07/16/19 23:15 10/14/19 01:14 Docusate Sodium (Colace) 100 mg EVERY 12 HOURS ORAL 07/17/19 09:00 08/14/19 20:59 07/21/19 09:11 Insulin Aspart (NovoLOG) BEFORE MEALS AND HS SUBQ 07/17/19 06:30 10/14/19 06:29 07/21/19 06:16 Insulin Aspart (NovoLOG) 4 units NOVOTIAC SUBQ 07/17/19 11:50 10/14/19 06:29 07/20/19 17:05 Insulin Detemir (Levemir) 12 units DAILY SUBQ 07/17/19 09:00 10/14/19 13:44 07/21/19 09:15 Metoprolol Tartrate (Lopressor) 50 mg Q12HR ORAL 07/18/19 21:00 10/14/19 20:59 07/21/19 09:12 Ondansetron HCl (Zofran) 4 mg Q6H PRN IVP Nausea & Vomiting 07/17/19 22:55 08/14/19 22:54 Sitagliptin Phosphate (Januvia) 25 mg ACBREAKFAST ORAL 07/17/19 06:30 08/15/19 13:44 07/21/19 06:15 Sodium Bicarbonate (NaHCO3) 650 mg THREE TIMES A DAY ORAL 07/20/19 13:00 08/19/19 12:59 07/21/19 12:44 Sodium Chloride 1,000 ml @ 75 mls/hr [id number] IV 07/20/19 10:00 08/19/19 09:59 07/21/19 12:45 Lucio North MD Jul 21, 2019 14:46
--- NOTE | 2019-07-21 15:30 | NUR ---
*-*DISCHARGE PLANNED*-* PATIENT HAS BEEN ACCEPTED WITH: [facility] P: [phone] S/W LAUREN, WHO STATED THEY WILL SERVICE THE PATIENT, AND THEY WILL CALL CALL PATIENT AT HOME TOMORROW 07/22/2019.
--- NOTE | 2019-07-21 16:04 | NUR ---
NURSE NOTES: patient was discharged to home via ambulance [facility] with fair condition. no respiratory distress noted. no pain at this time. given dc packet to ambulance personnel. removed IV and ID band. provide hygiene care. no belongings. not able to take wound picture d/t camera didn't work. sacral st2 upon admission. skin intact. no open skin at this time. jose johnson/pedro is aware that patient was discharged home.
--- NOTE | 2019-07-21 16:10 | NUR ---
DISCHARGE SWALLOW/SPEECH THERAPY SUMMARY: PATIENT SEEN FOR DYSPHAGIA, SEE SWALLOW EVAL AND MODIFIED BARIUM SWALLOW STUDY REPORTS. REVIEWED IMAGES AND WILL HAVE PRIMARY SELENIUM PLANT OPERATOR UPDATE ON THURSDAY. GOALS FOR INTAKE NOT MET (ONLY 0//25/50%) FOR MEALS BUT TAKES 100% OF GLUCERNA AT TIMES W/O OVERT ASPIRATION WITH PUREED AND THIN LIQUIDS PER BEATER ROOM SUPERVISOR/RN. GOALS MET FOR NEW STAFF EDUCATED/TRAINED IN POSTED ASPIRATION PRECAUTIONS. PT NOT ALERT FOR PO TRIALS AT THIS TIME. PLAN: F/UP WITH SELENIUM PLANT OPERATOR IN HOME SETTING FOR SKILLED DYSPHAGIA MANAGEMENT AND TRIAL TX SINCE PT D/C TODAY CONTINUE WITH CURRENT DIET/LIQUIDS AND HIGH CALORIE SUPPLEMENTS USING ASP PRECAUTIONS AND ONE TO ONE FEEDING. Addendum: 07/21/19 at 1612 by TRACY LÓPEZ SELENIUM PLANT OPERATOR IF INTAKE STILL POOR, CONSIDER CHANGING HER TO A LIQUIFIED PUREED LIKE THIN/NECTAR THICK CONSISTENCY (NOURISHING LIQUID DIET) SINCE SHE IS DRINKING 100% OF HER GLUCERNA.
--- NOTE | 2019-07-21 22:41 | Neurology Progress Note ---
Interim History Interim History ROS Limited/Unobtainable: Yes Interim History improved, plan for home Objective Physical Exam Last Vital Signs Date Time Temp Pulse Resp B/P (MAP) Pulse Ox O2 Delivery O2 Flow Rate FiO2 07/21/19 12:00 98.7 76 18 128/69 (88) 97 07/21/19 09:00 Room Air 07/19/19 20:00 21 Head: normocophalic Neck: no rigidity EENT: benign Neurologic Exam Objective somnolent, open eyes to pain right spastic hemiparesis cc 36 min Impression/Recommendations Problems: (1) Elevated troponin (2) Elevated LFTs (3) Acute delirium (4) Sepsis (5) Altered level of consciousness (6) Uncontrolled type 2 diabetes mellitus with hyperosmolar nonketotic hyperglycemia (7) ARF (acute renal failure) (8) Encephalopathy acute (9) UTI (urinary tract infection) (10) Hyperkalemia Diagnostic Impression acute encephalopathy hx of advanced dementia Right spastic hemiparesis Sepsis Cultures pending atb broad spectrum hold namenda hold sedating Christopher Alvarez MD Jul 21, 2019 22:41
== END 2019-07-21 16:24 | disposition home or self-care (01) | DRG 871 ==
LOC: EDSEX 14:07 → EDBD 14:07 → EMR 15:24 → EDBEDREQ 15:31 → ICU 15:41 → EDBEDREQ 20:55 → 4E 07-16 22:46
PROC: 06HM33Z Insertion of Infusion Device into Right Femoral Vein, Percutaneous Approach (ICD-10-PCS; principal; 2019-07-15)
DX: A41.9 Sepsis, unspecified organism (principal); E11.00 Type 2 diabetes mellitus with hyperosmolarity without nonketotic hyperglycemic-hyperosmolar coma (NKHHC); G93.41 Metabolic encephalopathy; N17.0 Acute kidney failure with tubular necrosis; N39.0 Urinary tract infection, site not specified; G81.91 Hemiplegia, unspecified affecting right dominant side; E87.5 Hyperkalemia; B96.1 Klebsiella pneumoniae [K. pneumoniae] as the cause of diseases classified elsewhere; Z86.73 Personal history of transient ischemic attack (TIA), and cerebral infarction without residual deficits; I48.91 Unspecified atrial fibrillation; I10 Essential (primary) hypertension; Z79.01 Long term (current) use of anticoagulants; Z79.84 Long term (current) use of oral hypoglycemic drugs; E83.51 Hypocalcemia; E78.5 Hyperlipidemia, unspecified; Z22.322 Carrier or suspected carrier of Methicillin resistant Staphylococcus aureus; R41.0 Disorientation, unspecified
CPT/HCPCS: 36415; 36600; 71045; 74230; 80048; 80053; 80307; 81003; 81025; 82009; 82803; 83036; 83735; 84100; 84484; 85025; 87081; 87086; 87181; 93306; 94664; 96361; 96374; 96375; 99291; G0480; J1815; J7030; S5561